=== PATIENT | female | born 1950 | race Caucasian/White ===

== ENCOUNTER 2017-02-21 05:35 | Inpatient (IN) | payer MEDICARE, OTHER ==
[~2017-02-21] VITALS: Ht 162.6 cm; Wt 63.5 kg
[~2017-02-21 05:35] MED LIST: BUSPIRONE HCL10 MG PO; CITALOPRAM HBR20 MG PO; CLONAZEPAM1 MG PO; FLUOXETINE HCL20 MG PO; GABAPENTIN600 MG PO; GEODON40 MG PO; HYDROCHLOROTH12.5 M1 PO; KEFLEX500 MG PO; LAMOTRIGINE200 MG PO; LATUDA20 MG PO; LOSARTAN POTAS100 MG PO; LOVASTATIN10 MG PO; METFORMIN HCL500 MG PO; NORCO 5-325 TA1 EACH PO; OMEPRAZOLE20 MG PO; TOPIRAMATE100 MG PO; VENTOLIN HFA18 GM INH
--- NOTE | 2017-02-21 07:37 | NUR ---
HAD BRIEF VISIT WITH THIS PT. SHE IS IN GOOD ATITUDE, I PRAYED WITH HER AND A BIT SURPRIZED AT HER EXCITEMENT TO RECIEVING PRAYER.
--- NOTE | 2017-02-21 09:45 | NUR ---
02/21/17 0945 Abida Bhardwaj PT SLEEPY, RESPONSES TO STIMULI.
--- NOTE | 2017-02-21 10:45 | NUR ---
BEDSIDE REPORT FROM EYE DROPPER ASSEMBLER. PT ALERT FORGETFUL, ATTEMPTEDTO CALL SON PER PT REQUEST, NO ANSWER PT LEFT MESSAGE
--- NOTE | 2017-02-21 12:10 | NUR ---
PT GIVEN TWO TABS NORCO FOR 7/10 PAIN. FIRST TAB PT REQUIRED EXTRA DRINK OF WATER TO CLEAR, CRUSHED SECOND TAB. PT IS ALERT AND ORIENTED. SHE IS FORGETFUL AND HAS INTERMITTEN ANXIETY, SETTLES WITH REASSURANCE THAT SHE IS DOING WELL POST OP.
--- NOTE | 2017-02-21 12:14 | NUR ---
NO SYMPTOMS OF HYPOCALCEMIA AT THIS TIME. PT REPORTS SHE FEELS HUNGERY BUT SHE DOES NOT WANT MORE THAN APPLESAUCE OR PUDDING AT THIS TIME. PT REPORTS NO NAUSEA AT THIS TIME.
--- NOTE | 2017-02-21 14:20 | NUR ---
PT REPORTS PAIN 8/10, IN HER NECK/SURGERY SITE. PT ADMINSITERED 3MG I.V. MORPHINE AT THIS TIME. WILL MONITOR CLOSELY, PT HAS NO SYMPTOMS OF LOW CALCIUM SURGICAL DRESSING IS CLEAN DRY AND INTACT. NO SIGNIFICANT SWELLING AT THIS TIME.
--- NOTE | 2017-02-21 14:20 | NUR ---
PT IS LYING IN BED, ASKED TO USE BEDSIDE COMMODE, THEN RETURNED TO BED. PT JUST RECIEVED PAIN MEDS. PT DID NOT NEED ANYTHING ELSE AT THE MOMENT
--- NOTE | 2017-02-21 14:51 | NUR ---
PT RESTING QUIELTY IN BED RR EVEN 16 BPM NO DISTRESS NOTED. PT APPEARS TO BE SLEEPING.
--- NOTE | 2017-02-21 17:32 | NUR ---
PT SITTING UP IN BED EATING DINNER. PT ADMINSTERED TWO TABS NORCO CRUSHED FOR PAIN 8/10 THROAT. NO SYMPTOMS OF HYPOCALCEMIA, NO SIGNIFICANT SWELLING AT THIS TIME. V/S STABLE LOSARTAN ADMINISTERED ORDERED
--- NOTE | 2017-02-21 18:00 | NUR ---
PT TO UNIT FROM SURGERY 1045. SHE HAD HIGH ANXIETY ON ARRIVAL SHE VERBALIZED CONCERN OF CANCER AND THAT SHE WAS GOING TO . PT WAS REASSURED THAT SURGERY WENT WELL AND THAT HER PROGRESS WAS ON TRACK. SHE HAS HAD NO SYMPTOMS OF HYPOCALCEMIA, NO SIGNIFICANT SWELLING AT SURGICAL SIGHT. SHE IS RESTING COMFORTABLE. REPORTS PAIN 7-8/10, HAS BEEN SLEEPING IN BETWEEN PAIN MEDICATION. HAS SPOKE WITH HER SON BOYD GILBERT TODAY. HAS HAD MILD DIZZINESS POST OP THAT IS IMPROVING SHE DOES HAVE A SCOPE PATCH BEHIND HER LEFT EAR. RN HAS BEEN CRUSHING PAIN MEDICATIONS, SHE HAS BEEN ABLE TO SWALLOW SMALL PILLS WITH APPLESAUCE WITHOUT ISSUE
--- NOTE | 2017-02-21 18:09 | NUR ---
PT IS IN BED WITH CALL LIGHT IN REACH. PT ASKED FOR BED TO BE RECLINED SO SHE CAN TRY AND SLEEP
--- NOTE | 2017-02-21 19:59 | NUR ---
PT ASSESSMENT COMPLETE. PT STATES PAIN IS "DOING GOOD" RIGHT NOW. PT DENIES ANY N/V. PT UP TO BEDSIDE COMMODE WITH x1 ASSIST. PT ON ROOM AIR, SATS 94%. DRESSING TO NECK IS C/D/I, NO SWELLING NOTED. NO S/SX HYPOCALCEMIA AT THIS TIME, WILL CONTINUE TO MONITOR. PT NOW RESTING IN BED EATING ICE CREAM. PT CALM AND RELAXED THIS EVENING, ALERT AND ORIENTED. CALL LIGHT WITHIN REACH. PT DENIES ANY FURTHER NEEDS AT THIS TIME.
--- NOTE | 2017-02-21 22:13 | NUR ---
PATIENT ASKED FOR ICE CREAM, GIVEN.
--- NOTE | 2017-02-21 23:15 | NUR ---
PT C/O PAIN 03/09, 4MG IV MORPHINE GIVEN. IV FLUIDS INFUSING WITHOUT DIFFICULTY. PT CONTINUES TO HAVE NO S/SX HYPOCALCEMIA, NEGATIVE CHVOSTEK SIGN. NO SWELLING NOTED TO NECK, DRESSING C/D/I. CALL LIGHT WITHIN REACH. PT DENIES ANY FURTHER NEEDS AT THIS TIME.
--- NOTE | 2017-02-21 23:55 | NUR ---
PT CONTINUES TO C/O NECK PAIN/SURGICAL PAIN 03/09, 6 MG IV MORPHINE GIVEN. SATS 94% ON ROOM AIR PER CONTINUOUS PULSE OXIMETER. CALL LIGHT WITHIN REACH. PT DENIES ANY FURTHER NEEDS AT THIS TIME.
--- NOTE | 2017-02-22 00:26 | NUR ---
PT CONTINUES TO C/O NECK/SURGICAL PAIN ALTHOUGH FALLING ASLEEP INTERMITTENTLY, IV 6MG MORPHINE GIVEN. CALL LIGHT WITHIN REACH. PT DENIES ANY FURTHER NEEDS AT THIS TIME.
--- NOTE | 2017-02-22 00:50 | NUR ---
PT RATES PAIN 04/09, NORCO GIVEN. PT FALLING ASLEEP INTERMITTENTLY, SATS DECREASE INTO MID-LOW 80'S ON ROOM AIR WHEN SLEEPING, PLACED PT ON 2 LPM O2 VIA NASAL CANNULA, SATS NOW 95%. BED RAILS UP FOR SAFETY, CURTAINS OPEN FOR CLOSE MONITORING. CALL LIGHT WITHIN REACH. PT DENIES ANY FURTHER NEEDS AT THIS TIME.
--- NOTE | 2017-02-22 01:30 | NUR ---
PT TRYING TO GET OUT OF BED, CONFUSED, TALKING OUT LOUD IMITATING TALKING ON THE PHONE TO A MALE. PT EASILY REORIENTED TO BEING IN THE HOSPITAL, MIDDLE OF THE NIGHT AND NO ONE IN THE ROOM OR ON THE PHONE. PT NOW RESTING WITH EYES CLOSED. SATS MID 90'S ON 2 LPM.
--- NOTE | 2017-02-22 03:00 | NUR ---
PT ATTEMPTING TO GET OUT OF BED, STATING SHE WOULD LIKE TO GET UP TO USE THE BATHROOM, BRUSH HER TEETH AND GET DRESSED. WHEN ASKED IF SHE KNEW WHERE SHE WAS, SHE RESPONDED CORRECTLY WITH "IM AT THE HOSPITAL". WHEN I TOLD HER THE TIME, SHE STATED "OH OK" THEN SHE LAID BACK DOWN IN BED AND COVERED HERSELF UP WITH HER BLANKET, CLOSED HER EYES. BED RAILS UP AND BED ALARM IN PLACE FOR SAFETY.
--- NOTE | 2017-02-22 04:01 | NUR ---
PT SLEEPING, RR EVEN AND UNLABORED. SATS HIGH 80'S ON 2 LPM DURING SLEEP, INCREASED O2 TO 3 LPM VIA NASAL CANNULA, SATS NOW MID 90'S.
--- NOTE | 2017-02-22 04:42 | NUR ---
PT PULSE OXIMETER BEEPING, WENT INTO PT ROOM, SATS MID 70'S, PT VISIBLY BREATHING, INCREASED O2 TO 4 LPM, ATTEMPTED TO WAKE PT BY TAPPING ARM AND SAYING PT NAME, PT NOT RESPONDING, ATTEMPTED STERNAL RUB. PT SATS CONTINUING TO DROP, PT CONTINUING TO NOT RESPOND TO STERNAL RUB, PT HAS GOOD PULSE. RAPID RESPONSE CALLED, SCRAP PREPARATION SUPERVISOR/THERAPEUTIC RADIOLOGIST/MOBILE SOLUTIONS ARCHITECT IN TO ASSIST MORE HOSPITAL STAFF CAME TO PT ROOM. PT STOPPED BREATHING, STILL HAS PULSE. CODE BUTTON PULLED. ER MD IN ROOM. NARCAN GIVEN x2. ATTEMPTED AIRWAY, PT TEETH CLENCHED, RT IN ROOM TO GET AIRWAY. PT RESPONSIVE AFTER SECOND DOSE OF NARCAN. PT TRANSFERRED TO CCU WITH ANTICIPATION OF INTUBATION. PT AWAKE AND YELLING AT STAFF IN CCU,INTUBATION NOT NEEDED. PT BLOOD GLUCOSE 163. DR VILLATORO IN ROOM. REPORT GIVEN TO DR VILLATORO.
--- NOTE | 2017-02-22 04:50 | NUR ---
RESPONDED TO A RAPID RESPONSE CALLED ON PT IN ROOM 111. ON MY ARRIVAL PT WAS NOT BREATHING. NURSING PORTER HEAD IN ROOM ATTEMPTING TO BAG PT. RT IN ROOM TO PUT IN OPA SO THAT PORTER HEAD WAS ABLE TO BAG PT. LU DE ANDA CALLED AT THIS TIME DUE TO PT IN FULL RESPIRATORY ARREST. DEFIB PADS PLACED ON PT BY THIS RN.
--- NOTE | 2017-02-22 05:00 | NUR ---
pt transfered to the CCU from med-surg. pt not talking at this time, pt breathing on her own, supported with supplimental O2.
--- NOTE | 2017-02-22 05:15 | NUR ---
PT BECOMING IRRATIBLE WITH HEALTHCARE STAFF, STATES "JUST LEAVE ME ALONE, QUIT BUGGING ME". PT HAS RIGGORS AND STATES "I'M SO COLD". WARM BLANKETS GIVEN.
--- NOTE | 2017-02-22 05:40 | NUR ---
PLEASE SEE RT ASSESEMENT AT 2746 FOR RAPID RESPONSE CHARTING
--- NOTE | 2017-02-22 05:41 | NUR ---
pt able to answer questions with clarity, appears to drift back to dilusional thinking and talking to herself quickly. pt holding O2 sats at 100% on 4.5 L via oxymask. all pt vitals stable at this time.
--- NOTE | 2017-02-22 05:57 | NUR ---
IV SITE INTACT, NO REDNESS OR SWELLING NOTED, PT DENIES PAIN AT SITE, FLUIDS INFUSING EASILY.
--- NOTE | 2017-02-22 07:35 | NUR ---
I WAS CALLED IN AT 0450 FOR LU DE ANDA WITH THIS PT. WHEN I ARRIVED SHE HAD RESPONDED TO MEDICATIONS AND HAD BEEN MOVED TO CCU,WAS RESTING SO I DID NOT DISTURB HER.
--- NOTE | 2017-02-22 08:06 | NUR ---
This RN finds patient sleepy in bed, pleasantly confused. Patient has been incontinant of urine. This RN arouses patient, assists patient to sit up at bedside. Curtains opened. Patient oriented to date, time, events of last night. This RN removes defib pads from patients chest and back. Patient up to bathroom, one person standby assist. Patient unsteady on feet. Requires reminders to keep eyes open. Patient voids to toilet, attends changed per RN and rusty care done. O2 to 2l nc. Patient up to chair for breakfast. Patient confused, occasionally talking to people not in room. Incision to neck WNL, CDI. Patient eating breakfast with no problems.
--- NOTE | 2017-02-22 08:27 | NUR ---
Patient states, "I keep seeing people in my room. How many of you are there." This RN talks with patient, assures her there are no other people in her room.
--- NOTE | 2017-02-22 08:34 | NUR ---
Placed a call to patient's son as patient is requesting to see him. No answer on cell phone.
--- NOTE | 2017-02-22 09:55 | NUR ---
Patient given regular home meds. Scopalamine patch removed. aware.
--- NOTE | 2017-02-22 09:58 | NUR ---
Patient remains confused. Dr Ratliff called with updates. Clarified plan of care with Dr Ratliff. MD orders patient to recieve Geodon, Gabapentin and Buspirone in spite of confusion and mental status changes.
--- NOTE | 2017-02-22 10:35 | NUR ---
PATIENT UP TO BATHROOM, UNABLE TO VOID. PATIENT NEARLY FALLS ASLEEP SITTING ON TOILET. PATIENT BACK TO CHAIR. CALL LIGHT IN REACH.
--- NOTE | 2017-02-22 12:36 | NUR ---
This RN finds patient standing in front of her chair attempting to walk to bathroom with scds on. This RN re-orients patient, assists her to the bathroom. Patient has been incontinant, also voids 400 mls to bsc. Patient slightly more oriented this afternoon. Placed patient into bed with side rails up and bed alarm on. Patient denies pain.
--- NOTE | 2017-02-22 13:33 | NUR ---
MED REC COMPLETE--PER PATIENT
--- NOTE | 2017-02-22 16:05 | NUR ---
This RN awakens patient, assists her to the bathroom and then up to chair. Patient is more alert, however remains unsteady on her feet. O2 titrated to off. Room air sats 93-95% will continue to monitor.
--- NOTE | 2017-02-22 16:06 | NUR ---
Lab in to draw calcium level.
--- NOTE | 2017-02-22 16:07 | NUR ---
Room air O2 sats 93%
--- NOTE | 2017-02-22 16:34 | NUR ---
Patient's son "Bolivar" calls back and talks with this RN. Updated patient's son about the events of last night and patient's confusion today. Bolivar is to call local family as he lives in [place].
--- NOTE | 2017-02-22 17:36 | NUR ---
Dr Ratliff called, updated on labs and mental status of patient. Gaudencio to keep patient in CCU overnight with close observation for patient safety. also notified that patient's blood pressure has been low this evening. No new orders.
--- NOTE | 2017-02-22 18:21 | NUR ---
Patient has slowly become more oriented throughout the day, however patient still unsteady on her feet at times and pleasantly confused. Patient will stay overnight and be discharged in the am for more observation. Patient has incision to her neck that is cdi. MD is aware of improving mental status.
--- NOTE | 2017-02-22 20:05 | NUR ---
PT AMBULATED FROM CHIAR TO BED WITH STANDBY ASSIST. PT DENIES PAIN, NAUSEA, AND SOB AT THIS TIME. PT VITALS WNL. IV SITE INTACT, NO REDNESS OR SWELLING NOTED, FLUIDS INFUSING EASILY. DRESSING OVER INCISION ON THROAT C/D/I. PT ALERT X3, STATES "I FEEL REALLY ANXIOUS ABOUT WHAT HAPPENED LAST NIGHT". PT ABLE TO HOLD MEANINGFUL CONVERSATION. PT C/O SOME VISUAL DISTURBANCE, STATES "I FEEL LIKE MY EYES WON'T FOCUS SOMETIMES", JOSE ROBERTO
--- NOTE | 2017-02-22 20:17 | NUR ---
PT PLACED ON 2L O2 FOR DESAT TO 88% WHILE ON ROOM AIR.
--- NOTE | 2017-02-23 | NUR ---
IV SITE INTACT, NO REDNESS OR SWELLING NOTED, FLUIDS INFUSING EASILY. VITALS WNL. DRESSING TO INCISION C/D/I.
--- NOTE | 2017-02-23 00:43 | NUR ---
PT C/O THROAT PAIN, DESCRIBES PAIN A SORE THROAT THAT HURTS WHEN SHE SWALLOWS. EXPLAINED THAT TYLENOL MAY NOT HAVE BEEN IN HER SYSTEM LONG ENOUGH TO PROVIDE THE FULL BENEFIT OF PAIN RELIEF.
--- NOTE | 2017-02-23 00:50 | NUR ---
CALLED TO UPDATE HIM ON PT THROAT DISCOMFORT/PAIN. CHLORASEPTIC SPRAY ORDERED.
--- NOTE | 2017-02-23 02:00 | NUR ---
PT AWAKE, TAKING OFF HER SCD'S, STATES "I NEED TO WALK, I CAN'T SLEEP, I NEED TO GET OUT OF THIS BED". ASSISTED PT UP OUT OF BED, AMBULATED IN LANCE WITH PT. PT REQUESTED TO SIT OUT AT THE NURSES STATION, SHE WAS GIVEN A CHAIR. PT ALSO GIVEN A DIET SODA. PT PLESANT AND TALKATIVE. ALERT AND ORIENTED X3.
--- NOTE | 2017-02-23 02:50 | NUR ---
PT AMBULATED FROM NURSES STATION TO BATHROOM INDEPENDENTLY, ABLE TO VOID THEN BACK TO BED. PT REPORTS CHLORASEPTIC SPRAY HELPS SLIGHTLY WITH THROAT DISCOMFORT. CALL LIGHT WITHIN REACH.
--- NOTE | 2017-02-23 04:00 | NUR ---
PT SLEEPING SOUNDLY AT THIS TIME, VITALS WNL, WILL DEFER ASSESSMENT UNTIL 0600
--- NOTE | 2017-02-23 05:20 | NUR ---
PT WOKE UP, STARTED TO CLIMB OUT OF BED, PULLING LEADS OFF, DISORIENTED TO PLACE AND FOLLOWING DIRECTIONS. ASSISTED PT TO TOILET, PT ABLE TO VOID, THEN ASSISTED BACK TO BED, PT REQUIRES REDIRECTION AND REORIENTATION. PT POLITE. DRESSING REMOVED FROM PT INCISION ON THROAT, STERI STRIPS INTACT, NO DRAINAGE NOTED, PT REPORTS THIS IS MORE COMFORTABLE.
--- NOTE | 2017-02-23 05:34 | NUR ---
IV SITE INTACT, NO REDNESS OR SWELLING NOTED, FLUIDS INFUSING EASILY.
--- NOTE | 2017-02-23 05:35 | NUR ---
BED ALARM NOW ON.
[2017-02-23] MEDS ORDERED: LOVASTATIN10 MG PO (07:09)
[2017-02-23] MEDS ORDERED: TOPIRAMATE100 MG PO (07:10)
[2017-02-23] MEDS ORDERED: LEVOTHYROXINE150 MCG PO (07:11)
[2017-02-23] MEDS ORDERED: CALCIUM CARBON200 MG PO (07:11)
[2017-02-23] MEDS ORDERED: NORCO 5-325 TA1 EACH PO (07:13)
--- NOTE | 2017-02-23 07:31 | NUR ---
DR VILLATORO HERE THIS AM DISCHARGE ORDERS WRITTEN. PT IS INPULSIVE THIS AM, JUMP OUT OF BED WITHOUT USING CALL LIGHT. VOIDED AND BACK TO BED.
--- NOTE | 2017-02-23 07:56 | NUR ---
MORNING ASSESSMENT COMPLETED AND PT DOES NOT WANT TO EAT BKF AT THIS TIME, WANTS TO SLEEP IN THIS MORNING. PT TOLD MOTHER TESTER THAT SHE WILL TAKE THE TAXIE HOME AND HER PARENTS WILL BE WITH HER THIS AM.
--- NOTE | 2017-02-23 09:27 | NUR ---
PHARMANCY INTO TALK WITH PT AT THIS TIME ABOUT HER MEDICATIONS.
--- NOTE | 2017-02-23 10:07 | NUR ---
PT GIVEN DISCHARGE INSTRUCTION ALL QUESTIONS ANSWERED. PT WAS GIVEN HANDOUT'S APPOINTMENT AND LAB ORDERS SENT TO [facility] TO BE DRAWN ON February. ALL OF THIS INFORMATION WRITTEN ON PT'S DISCHARGE INSTRUCTIONS AND SHE VERBALLY REPEATED INSTRUCTIONS.
--- NOTE | 2017-03-04 10:25 | OR ---
[facility] [address], [place] [address] Signed DATE OF SERVICE: 02/21/2017 PREOPERATIVE DIAGNOSES: Bilateral enlarging thyroid nodules with calcification. Multiple medical problems. POSTOPERATIVE DIAGNOSES: Bilateral enlarging thyroid nodules with calcification. Multiple medical problems. PROCEDURE: Total thyroidectomy. Autotransplant of left lower pole parathyroid gland to the left sternocleidomastoid muscle. ANESTHESIA: General endotracheal (Estelle Kat CRNA). INDICATION: This 66-year-old white woman is a patient of Dr. Cisco Fields and referred by Dr. Eloy Almanzar for consideration of possible thyroidectomy. She has undergone thyroid ultrasound in the past under the direction of Dr. Belcher showing thyroid nodules on both r ight and left lobes. A fine-needle aspiration biopsy was felt to be benign at that time. A surveillance ultrasound was recently performed which showed multiple nodules, 2 of them calcified, 1 in each lobe. The largest is approximately 1.7 cm in size, anot her 1.5 cm. The patient has had some hoarseness she perceives as well as some cervical dysphagia, though more likely this is related to reflux-related symptoms. She has other medical problems as well. The patient is very interested in total thyroidectomy as she is very worried about the nodules. I reassured her that the possibility of malignancy is relatively low in aggregate, though not impossible. She understands the risks of thyroidectomy as an approach to treatment. She does not wish to pursue fine-n eedle aspiration biopsy again. The risks of bleeding, infection, parathyroid gland injury both temporary and permanent as well as recurrent laryngeal nerve or external laryngeal nerve injury were all reviewed and well understood by her. She understands th at she will need thyroid replacement therapy going forward. She also understands that if malignancy should be identified in the final pathologic specimen that additional therapy may be needed. Understanding this, she wished to proceed. Of note, a CT scan of the head and neck was performed preoperatively showing no sign of Electronically Signed By: ALTAGRACIA VILLATORO MD 03/04/17 1025 PATIENT NAME: DEMETRIO GILBERT OPERATIVE REPORT DATE OF : 48 PHYSICIAN: ALTAGRACIA VILLATORO MD REPORT #: [id number] REPORT IS CONFIDENTIAL AND NOT TO BE RELEASED WITHOUT AUTHORIZATION [facility] [address] [place] [id number] Signed pathologic adenopathy and the findings of the thyroid somewhat underrepresented on the CT scan compared to the ultrasound. FINDINGS: The thyroid was of average to a smaller size. There wer e 2 dense nodules, one in the right lobe and another in the left and several small cystic lesions of the right lobe. There was a small pyramidal lobe as well. The specimen was resected entirely in continuity. The right and left recurrent laryngeal nerves w ere identified. The left lower pole parathyroid gland was slightly enlarged and draped across the anterior aspect of the left lobe. This was dissected free from the thyroid and the proximal portion with presumed blood supply was left in situ. The other po r tion reimplanted to the left sternocleidomastoid muscle with the unlikely possibility of other parathyroid gland excision. Parathyroid glands were identified on the right side which were small and within the normal anatomic areas in the tracheoesophageal groove. Consideration was made for frozen pathology, however, there was no regional adenopathy noted and the frozen pathology report is typically indeterminate to direct further therapy in our setting. There was excellent hemostasis. DESCRIPTION OF PROCEDURE: The patient was brought to the operating room, given a general endotracheal anesthetic. A Brady catheter was not placed, although it is sometimes my habit to do so. Mild neck extension was undertaken. A shoulder roll was used. Arms were at the side. A position was maintained. The neck was prepared with a chlorhexidine solution and draped sterilely. A natural skin crease was nat ntified. Incision made between the sternocleidomastoid muscle heads. Dissection was carried through the dermis with electrocautery, as was the platysma muscle and divided similarly. Superior and inferior flaps were developed with blunt and electrocautery d issection. Gelpi retractors were placed. The midline strap muscles were elevated and the avascular plane between them incised and freed entirely. The sternohyoid and sternothyroid muscles were dissected free using sharp dissection on the right side exposi n g underlying right thyroid lobe. Palpation revealed a dense nodule within the midportion of it. There were other small nodules noted as well. The thyroid is not enlarged by any means. There was no sign of regional adenopathy. With medial retraction, later a l dissection was undertaken. Division of loose areolar tissue undertaken with sharp dissection. Dissection in the superior pole allowed for individual dissection and ligation of superior polar vessels. A few clips were applied as well. Attention was turne d to the inferior pole, where using similar dissection the inferior polar vessels were isolated and ligated with 4-0 silk ties. Laterally, similar dissection was undertaken allowing for the thyroid to be rolled to the midline quite easily. Posterior elemen t s were easily identified including the right recurrent laryngeal nerve. Using the extracapsular technique of Lane, the ligament of Hardwick was revealed and dissection undertaken more medially Electronically Signed By: ALTAGRACIA VILLATORO MD 03/04/17 1025 PATIENT NAME: DEMETRIO GILBERT OPERATIVE REPORT DATE OF : 48 PHYSICIAN: ALTAGRACIA VILLATORO MD REPORT #: [id number] REPORT IS CONFIDENTIAL AND NOT TO BE RELEASED WITHOUT AUTHORIZATION [facility] [address] [place], [place] [address] Signed rolling the thyroid to the midline to the avascular plane in the pretracheal space. This allowed for complete isolation of the isthmus. The inferior and superior parathyroid glands were identified and relatively small in size and left in situ. The area was essentially nonbleeding and small gauze was packed into the area. Attention turned toward the left side. With similar technique, the thyroid lobe on the left was revealed. It was far smaller than on the right side. It too had a dense nodule within the midportion. An inferior parathyroid gland on the left side was draped over the inferior pole and this was dissected free showing its impressively small vascular pedicle to the gland. Once completely freed, it was uncertain if this parathyroid gland would be viable. On that basis, half of it was transected and set asi de for autotransplantation into the left sternocleidomastoid muscle later. With similar technique as to the right side, the superior, inferior, and lateral vessels were secured with 4-0 silk ties and a few clips as necessary. The left recurrent laryngeal nerve was easily identified and preserved as well. The thyroid was rolled to the midline and ultimately excised completely from the area of the ligament of Hardwick allowing for the specimen to be inclusive of both right, left, and isthmus portions of the th y roid. A small pyramidal lobe was excised in continuity as well. Irrigation was undertaken. There was no untoward bleeding. Small amount of Alvaro was applied to the posterior aspect. A small linear incision was made in the left sternocleidomastoid muscle and the parathyroid remnant diced and implanted into that area. It was secured with a 3-0 silk suture and 3 small clips stacked in a row over it to estelle the site for future reference if necessary. Attention was turned toward closure. The midline strap mus cles were reapproximated with interrupted 2-0 Vicryl suture. The platysmal layer was similarly reapproximated and skin closed with a running subcuticular 3-0 Vicryl. Steri-Strips were applied as well as a Mepilex silver sponge dressing and an OpSite. BLOOD LOSS: Minimal. COMPLICATIONS: None. MD JILLIAN Gilbert/Dustin /[id number] Electronically Signed By: ALTAGRACIA VILLATORO MD 03/04/17 1025 PATIENT NAME: DEMETRIO GILBERT OPERATIVE REPORT DATE OF : 48 PHYSICIAN: ALTAGRACIA VILLATORO MD REPORT #: [id number] REPORT IS CONFIDENTIAL AND NOT TO BE RELEASED WITHOUT AUTHORIZATION [address] [id number] Signed cc: MD Cisco Bhardwaj M Electronically Signed By: ALTAGRACIA VILLATORO MD 03/04/17 1025 PATIENT NAME: DEMETRIO GILBERT OPERATIVE REPORT DATE OF : 48 PHYSICIAN: ALTAGRACIA VILLATORO MD REPORT #: [id number] REPORT IS CONFIDENTIAL AND NOT TO BE RELEASED WITHOUT AUTHORIZATION
--- NOTE | 2017-03-04 10:25 | DS ---
[facility] [address], [place] [address] Signed ADMIT DATE: 02/22/2017 DISCHARGE DATE: 02/23/2017 REASON FOR ADMISSION: Multiple bilateral thyroid nodules, for total thyroidectomy. HISTORY: A 66-year-old white woman, a patient of Dr. Cisco Noonan and referred by Dr. Feliciano Almanzar for consideration of possible thyroidectomy. She has undergone thyroid ultrasound in the past under the direction of Dr. Belcher showing thyroid nodules in both lobes. A surveillance ultrasound recently performed showed multiple nodules, 2 of them calcified, 1 in each lobe. The largest was 1.7 cm in size and the other 1.5 cm. The patient has had some hoarseness that she perceives as well as some cervical dysphagia, though most likely this is related to reflux symptoms. The patient is very interested in total thyroidectomy as she is impressively worried about the nodules as possible ability of malignancy. She understands the risks of bleeding, infection, nerve injury, and other unforeseen complications related to thyroidectomy. Additionally, she understands that she will need to be on thyroid replacement permanently. PERTINENT PHYSICAL EXAMINATION: GENERAL: A pleasant white woman, who is alert and oriented. PSYCHIATRIC: She does have a psychiatric history of bipolar disease but appears to be well compensated at this time. NECK: Trachea is midline. The thyroid is not bulky. There is no dominant nodule palpable. There is no cervical adenopathy. CHEST: Clear. HEART: Regular without murmur. ABDOMEN: Soft and flat without tenderness or mass. EXTREMITIES: Show no clubbing, cyanosis, or edema. HOSPITAL COURSE: On February 21, 2017, she underwent total thyroidectomy. Autotransplantation of the left lower pole parathyroid gland portion to the left sternocleidomastoid muscle was undertaken as well. There was no excision of parathyroid glands, otherwise, that could be known. She tolerated the procedure well without complication. The night of operation, she had some disorientation and complaints of neck pain. She was treated with morphine several doses and then was found to have a significant respiratory depression requiring Narcan administration and transferred to the intensive care unit. It became clear that she likely had secondary effect from a scopolamine patch that had been placed Electronically Signed By: ALTAGRACIA VILLATORO MD 03/04/17 1025 PATIENT NAME: DEMETRIO GILBERT DISCHARGE SUMMARY DATE OF : 48 PHYSICIAN: ALTAGRACIA VILLATORO MD REPORT #: [id number] REPORT IS CONFIDENTIAL AND NOT TO BE RELEASED WITHOUT AUTHORIZATION [facility] [address], [place] [address] Signed perioperatively. She had recovery from her problem promptly, and by the time of discharge, w a s ambulating well, tolerating a regular diet. She has no signs or symptoms of hypocalcemia and no disorientation. Of note, her immediate post procedure (day after surgery) calcium level was 8.0 and 7.9 by the day of discharge. She was administered Tums tablets, though she is symptom-free on a routine basis. Additionally, Synthroid was initiated at 0.15 mg daily. She is to see me back in approximately 2- 3 weeks at which point, a T4, T3, and TSH as well as a calcium level will be obtained. She is especially instructed to keep Steri-Strips on the wound. If she has numbness or tingling in her lips or fingers, she is to take a Tums tablet and to advise me. DISCHARGE MEDICATIONS: Include: Tums tablet 500 mg p.o. q.8 hours. Synthroid 0.15 mg p.o. daily. Grafton 5/325 one p.o. q.6 hours p.r.n. pain, #10, no refill. Gabapentin 1800 mg p.o. q.h.s. Lamotrigine 200 mg p.o. q.h.s. Hydrochlorothiazide 12.5 mg p.o. daily. Prilosec 20 mg p.o. daily. Albuterol sulfate inhaler as needed for shortness of breath. Geodon 40 mg p.o. b.i.d. Clonazepam 1 mg tablet, 1.5 mg p.o. q.h.s. Citalopram 20 mg p.o. daily. Buspirone 10 mg p.o. b.i.d. She will resume her topiramate 100 mg tablet daily and lovastatin 10 mg + daily as well. DISCHARGE DIAGNOSES: Bilateral thyroid nodules, final pathology pending, status post total thyroidectomy with autotransplantation of left lower pole portion of parathyroid gland to her left sternocleidomastoid muscle. Underlying bipolar disease with multiple medications for control. Postoperative respiratory depression related to morphine-related respiratory depression. Postoperative delirium, likely related to scopolamine patch. Full code. Altagracia Villatoro MD Electronically Signed By: ALTAGRACIA VILLATORO MD 03/04/17 1025 PATIENT NAME: DEMETRIO GILBERT DISCHARGE SUMMARY DATE OF : 48 PHYSICIAN: ALTAGRACIA VILLATORO MD REPORT #: [id number] REPORT IS CONFIDENTIAL AND NOT TO BE RELEASED WITHOUT AUTHORIZATION [facility] [address] [place], [place] [address] Signed JILLIAN/Dustin /[id number] cc: Dr. Feliciano Fields Electronically Signed By: ALTAGRACIA VILLATORO MD 03/04/17 1025 PATIENT NAME: DEMETRIO GILBERT DISCHARGE SUMMARY DATE OF : 48 PHYSICIAN: ALTAGRACIA VILLATORO MD REPORT #: [id number] REPORT IS CONFIDENTIAL AND NOT TO BE RELEASED WITHOUT AUTHORIZATION
== END 2017-02-23 10:00 | disposition home or self-care (01) | DRG 72 ==
LOC: DS 05:35 → CCU 05:36 → DS 06:45 → CCU 10:35 → MS 10:35 → DS 10:35 → CCU 02-22 05:00 → DS 02-22 05:00 → MS 02-22 05:00 → CCU 02-22 05:00
PROVIDERS: ADMIT Surgery
DX: G93.89 Other specified disorders of brain (principal); K21.9 Gastro-esophageal reflux disease without esophagitis; I10 Essential (primary) hypertension; J45.909 Unspecified asthma, uncomplicated; E89.0 Postprocedural hypothyroidism; T44.3X5A Adverse effect of other parasympatholytics [anticholinergics and antimuscarinics] and spasmolytics, initial encounter; T40.2X5A Adverse effect of other opioids, initial encounter; R41.0 Disorientation, unspecified; G47.30 Sleep apnea, unspecified; F31.9 Bipolar disorder, unspecified; Z79.84 Long term (current) use of oral hypoglycemic drugs; Y92.239 Unspecified place in hospital as the place of occurrence of the external cause; Z88.8 Allergy status to other drugs, medicaments and biological substances; Z86.19 Personal history of other infectious and parasitic diseases; Z79.899 Other long term (current) drug therapy; Z98.890 Other specified postprocedural states
CPT/HCPCS: 00320; 31720; 36415; 80053; 82247; 82310; 82465; 83615; 84100; 84478; 84550; 94640; 94760; 94762; J0690; J1100; J2270; J2310; J2405; J2704; J2765; J3010; J7120

== ENCOUNTER 2018-04-14 16:09 | Emergency (ER) | payer MEDICARE, OTHER ==
[~2018-04-14] VITALS: Ht 162.6 cm; Wt 55.0 kg
--- OUTSIDE RECORDS SUMMARY | ~2018-04-14 | XMS | Clinical Summary ---
Demographics + + + | Address | [address] | | | [place] [address] | + + + | Home Phone | | + + + | Preferred Language | Unknown | + + + | Marital Status | Single | + + + | Denominational Affiliation | CAT | + + + [...] Team Providers + +------+ + | Care Utilization Reviewer Name | Role | Phone | + +------+ + PP | Unavailable | + +------+ + Source Comments TRAN is fully live on both [facility] and [facility]Patient.[facility] Allergies Not on File Current Medications [...] | re | [phone] | [place] [address] | | | B | | | | | + +--------+ +--------+ + + | MODA MEDICARE | MODA | xxxxxxxxx | POS | +- | [address] [address] | | SUPPLEMENT | MEDICA | | | [address] | [place] [address] | | | RE | | | [...] | 1950 | +1-000-000- | [place] [address] | | | ko | | | 0000 | | + +--------+ +--------+ + +"
--- OUTSIDE RECORDS SUMMARY | ~2018-04-14 | XMS | Clinical Summary ---
Demographics + + + | Address | [address] | | | [place] [address] | + + + | Home Phone | | + + + | Preferred Language | Unknown | + + + | Marital Status | | + + + | Jain Affiliation | 1027 | + + + | Race | Unknown | + + + | Ethnic Group | Unknown | + + + Author + + + | Author | [facility] | | | and [place] | + + + | Organization | [facility] | | | and Neo[facility] | + + + | Address | Unknown | + + + | Phone | Unavailable | + + + Support + + + + + | Name | Relationship | Address | Phone | + + + + + | Bolivar Lim | ECON | [address] | | | | | [address] [place], | | | | | [place] [address] | | + + + + + | Ana Oneal | ECON | [address] | | | | | [place] | | | | | [address] | | + + + + + Care Team Providers + +------+ + | Care Smoke Chaser Name | Role | Phone | + +------+ + | Cisco Fields MD | PP | | + +------+ + Allergies + + + +--------+ + | Active Allergy | Reactions | Severity | Noted | Comments | | | | | Date | | + + + +--------+ + | Bupropion Hcl | | | | | + + + +--------+ + | Meperidine Hcl | | | | | + + + +--------+ + Current Medications + + + +---------+------+------+-------+ | Prescription | Sig. | Disp. | Refills | Star | End | Statu | | | | | | t | Date | s | | | | | | Date | | | + + + +---------+------+------+-------+ | | Take 40-25 mg by | | | 03/31 | | Activ | | olmesartan-hydrochlo | mouth Daily. | | | 10/17 | | e | | rothiazide (BENICAR | | | | 12 | | | | HCT) 40-25 MG per | | | | | | | | tablet | | | | | | | + + + +---------+------+------+-------+ | loratadine | Take 10 mg by mouth | | | 09/1 | | Activ | | (CLARITIN) 10 mg | Daily. | | | 3/20 | | e | | tablet | | | | 12 | | | + + + +---------+------+------+-------+ | lamoTRIgine | Take 100 mg by mouth | | | 09/1 | | Activ | | (LAMICTAL) 100 mg | Daily. | | | 3/20 | | e | | tablet | | | | 12 | | | + + + +---------+------+------+-------+ | L-Methylfolate | 1 tablet by mouth | | | 09/1 | | Activ | | (DEPLIN PO) | twice daily | | | 3/20 | | e | | | | | | 12 | | | + + + +---------+------+------+-------+ | lovastatin | Take 10 mg by mouth | | | 03/31 | | Activ | | (MEVACOR) 10 MG | Daily. | | | 10/17 | | e | | tablet | | | | 12 | | | + + + +---------+------+------+-------+ | omeprazole | Take 20 mg by mouth | | | 03/31 | | Activ | | (PRILOSEC) 20 mg | 2 times daily. | | | 10/17 | | e | | capsule | | | | 12 | | | + + + +---------+------+------+-------+ | | AEPB 2 puffs as | | | 03/31 | | Activ | | Fluticasone-Salmeter | needed | | | 10/17 | | e | | ol (ADVAIR DISKUS | | | | 12 | | | | IN) | | | | | | | + + + +---------+------+------+-------+ | gabapentin | one by mouth am, 1 | | | 09/2 | | Activ | | (NEURONTIN) 400 mg | in the afternoon and | | | 03/19 | | e | | capsule | 4 in the evening | | | 12 | | | + + + +---------+------+------+-------+ | FLUoxetine | one by mouth daily | | | 09/2 | | Activ | | (PROZAC) 10 mg | | | | 8/20 | | e | | capsule | | | | 12 | | | + + + +---------+------+------+-------+ | traZODone | 1/2 by mouth at | | | 09/2 | | Activ | | (DESYREL) 100 mg | night | | | 8/20 | | e | | tablet | | | | 12 | | | + + + +---------+------+------+-------+ | | To be taken the day | | | 09/0 | | Activ | | asrrzvhjt-LHV-YDv-so | prior to procedure | | | 4/20 | | e | | dium | drink 8 ounces every | | | 12 | | | | bicarbonate-NaCl | 10-20 minutes until | | | | | | | (HALFLYTELY WITH | gone | | | | | | | FLAVOR PACKS) 5-210 | | | | | | | | MG-GM KIT | | | | | | | + + + +---------+------+------+-------+ | adalimumab | Inject sq every 2 | 2 each | 5 | 05/0 | | Activ | | (HUMIRA) 40 mg/0.8 | weeks | | | 2/20 | | e | | mL injection | | | | 13 | | | + + + +---------+------+------+-------+ Active Problems + + + | Problem | Noted Date | + + + | OBSTRUCTIVE SLEEP APNEA | 09/28/2011 | + + + | RESTLESS LEG SYNDROME | 09/28/2011 | + + + | BIPOLAR DISORDER UNSPECIFIED | 09/28/2011 | + + + + + | Overview: ICD-10 Record update | + + + + + | ORGANIC INSOMNIA UNSPECIFIED | 09/28/2011 | + + + + + | Overview: ICD-10 Record update | + + + +---+ | INFLAMMATORY BOWEL DISEASE | | + +---+ | HEPATITIS C | | + +---+ + + | Overview: ICD-10 Record update | + + + +---+ | HIATAL HERNIA | | + +---+ | INTERNAL HEMORRHOIDS | | + +---+ Social History + +-------+ +--------+------+ | Tobacco [...] on file | | + + + Last Filed Vital Signs + + + + | Vital Sign | Reading | Time Taken | + + + + | Blood Pressure | 108/70 | 03/21/2012 0000 PDT | + + + + | Pulse | - | - | + + + + | Temperature | - | - | + + + + | Respiratory Rate | - | - | + + + + | Oxygen Saturation | - | - | + + + + | Inhaled Oxygen | - | - | | Concentration | | | + + + + | Weight | 60.8 kg (134 lb) | 03/21/2012 0000 PDT | + + + + | Height | 165.1 cm (5' 5") | 05/15/2009 0000 PDT | + + + + | Body Mass Index | 22.3 | 03/21/2012 0000 PDT | + + + + Plan of Treatment + + + + + | Health Maintenance | Due Date | Last Done | Comments | + + + + + | Vaccine: | | | | | Dtap/Tdap/Td (1 - | 8 | | | | Tdap) | | | | + + + + + | BREAST CANCER | | | | | SCREENING (MAMM Q2 | 9 | | | | YEARS 50-74) | | | | + + + + + | Vaccine: Zoster (1 | | | | | of 2) | 9 | | | + + + + + | Colorectal Cancer | | 04/27/2012, 04/27/2012 | | | Screening (FIT) | 3 | | | + + + + + | Vaccine: | | | | | Pneumococcal 65+ | 4 | | | | Low/Medium Risk (1 | | | | | of 2 - PCV13) | | | | + + + + + | Vaccine: Influenza | | | | | (#1) | 8 | | | + + + + + | Hepatitis C | Completed | 05/02/2015 | | | Screening | | | | + + + [...] + + | MEDICARE | MEDICA | [id number] | Medica | [phone] | | | RE | | re | [phone] | | | | PART A | | | | | | | AND B | | | | | + +--------+ +--------+ + + | MODA | MODA | [id number] | Indemn | [phone] | [address] [address] | | | HEALTH | | ity | [phone] | [place] [address] | | | MDCR | | | | | | | SUPPL | | | | | + +--------+ +--------+ + + + +--------+ +--------+ + + | Guarantor Name | Accoun | Relation to | Date | Phone | Billing Address | | | t Type | Patient | of | | | | | | | | | | + +--------+ +--------+ + + | DEMETRIO LIM | Person | Self | [birth year] | Work: | [address] | | | al/Kadeem | | [address] | +- | [place] [address] | | | [place] | | | [phone] Home: | | | | | | | | | | | | | | +- | | | | | | | [address] | | + +--------+ +--------+ + +
--- OUTSIDE RECORDS SUMMARY | ~2018-04-14 | XMS | Clinical Summary ---
Demographics + + + | Address | [address] | | | [place] [address] | + + + | Home Phone | | + + + | Preferred Language | Unknown | + + + | Marital Status | | + + + | Yarsani Affiliation | 1027 | + + + | Race | Unknown | + + + | Ethnic Group | Unknown | + + + Author + + + | Author | [facility] | | | and Neoana | + + + | Organization | [facility] | | | and [...] [place], | | | | | [place] [address] | | + + + + + | Ana Oneal | ECON | [address] | | | | | [place] | | | | | [address] | | + + + + + Care Team Providers + +------+ + | Care Drug Regulatory Affairs Specialist Name | Role | Phone | + [...] | 09/0 | | Activ | | [id number]-NJW-MDz-so | prior to procedure | | | [...] + + | MEDICARE | MEDICA | [id number] | Medica | [phone] | | | | RE | | re | [phone] | | | | PART A | | | | | | | AND B | | | | | + +--------+ +--------+ + + | MODA | MODA | [id number] | Indemn | [phone] | [address] [address] | | | HEALTH | | ity | [address] | [place] [address] | | | MDCR | | | [...] | [address] | +- | [place] [address] | | | ko | | | [address] Home: | | | | | | | | | | | | | | +- | | | | | | | [address] | | + +--------+ +--------+ + +
--- OUTSIDE RECORDS SUMMARY | ~2018-04-14 | XMS | Clinical Summary ---
Demographics + + + | Address | [address] | | | [place] [address] | + + + | Home Phone | | + + + | Preferred Language | Unknown | + + + | Marital Status | Single | + + + | Bahai Affiliation | CAT | + + + [...] Team Providers + +------+ + | Care Manager Relationship Name | Role | Phone | + +------+ + PP | Unavailable | + +------+ + Source Comments TRAN is fully live on both [facility] and [facility] InPatient.[facility] Allergies Not on File Current Medications [...] | re | [phone] | [place] [address] | | | B | | | | | + +--------+ +--------+ + + | MODA MEDICARE | MODA | xxxxxxxxx | POS | +- | [address] [address] | | SUPPLEMENT | MEDICA | | | [address] | [place] [address] | | | RE | | | [...] | 1950 | +1-000-000- | [place] [address] | | | [place] | | | 0000 | | + +--------+ +--------+ + +"
[~2018-04-14 16:09] MED LIST changes: +AMLODIPINE BESYL5 MG PO; +CALCIUM CARBON200 MG PO; +LEVOTHYROXINE150 MCG PO; +LIOTHYRONINE SO5 MCG PO; +NICORETTE4 M2 BUCCAL
--- OUTSIDE RECORDS SUMMARY | 2018-04-14 16:14 | XMS ---
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 Antonio VISIT COUNT (12 MO.) 2 [facility] TOTAL 2 NOTE: Visits indicate total known visits. ED/C VISIT TRACKING (12 MO.) 04/14/2018 16:09 [facility] TYPE[facility] Emergency COMPLAINT: - STROKE SYMPTOMS 04/07/2018 11:41 [facility] TYPE: Emergency COMPLAINT: - MULTIPLE COMPLAINTS INPATIENT VISIT TRACKING (12 MO.) No inpatient visits to display in this time frame [email or web address]
--- NOTE | 2018-04-14 21:12 | EKG ---
[facility] [facility] [address] [facility] [place] [address] Signed Normal sinus rhythm Normal ECG When compared with ECG of 15-FEB-2017 13:26, Nonspecific T wave abnormality now evident in Inferior leads Confirmed by ABHI ARZATE MD ([id number]) on 04/14/2018 9:12:39 PM Electronically Signed By: ABHI ARZATE MD 04/14/182111 PATIENT NAME: DEMETRIO GILBERT Electrocardiogram DATE OF : 48 PHYSICIAN: ABHI ARZATE MD REPORT #: [id number] REPORT IS CONFIDENTIAL AND NOT TO BE RELEASED WITHOUT AUTHORIZATION
== END 2018-04-14 19:49 | disposition home or self-care (01) ==
LOC: ED 16:09
DX: R41.0 Disorientation, unspecified (principal); F31.9 Bipolar disorder, unspecified; Z60.9 Problem related to social environment, unspecified; I10 Essential (primary) hypertension; Z87.891 Personal history of nicotine dependence; Z88.4 Allergy status to anesthetic agent; Z79.899 Other long term (current) drug therapy
CPT/HCPCS: 70450; 71045; 80053; 81001; 84484; 85025; 85610; 85730; 93005; 93010; 99285

== ENCOUNTER 2018-04-18 17:12 | Inpatient (IN) | payer MEDICARE, OTHER ==
[~2018-04-18] VITALS: Ht 162.6 cm; Wt 57.1 kg
--- OUTSIDE RECORDS SUMMARY | ~2018-04-18 | XMS | Clinical Summary ---
Demographics + + + | Address | [address] | | | [place] [address] | + + + | Home Phone | | + + + | Preferred Language | Unknown | + + + | Marital Status | Single | + + + | Taoist Affiliation | CAT | + + + | Race | White | + + + | Ethnic Group | Not or | + + + Author + + + | Author | [facility] | + + + | Organization | [facility] | + + + | Address | Unknown | + + + | Phone | Unavailable | + + + Care Team Providers + +------+ + | Care Retail Agent Name | Role | Phone | + +------+ + PP | Unavailable | + +------+ + Source Comments TRAN is fully live on both [facility] and [facility] InPatient.[facility] Allergies Not on File Current Medications Not on file Active Problems Not on file Social History + +-------+ +--------+------+ | Tobacco Use | Types | Packs/Day | Years | Date | | | | | Used | | + +-------+ +--------+------+ | Never Assessed | | | | | + +-------+ +--------+------+ + + + | Sex Assigned at | Date Recorded | | | | + + + | Not on file | | + + + Plan of Treatment + + + + + | Health Maintenance | Due Date | Last Done | Comments | + + + + + | Pneumococcal (Adult) | | | | | (1 of 2 - PCV13) | 4 | | | + + + + + | INFLUENZA VACCINE | | | | | (FLU SHOT) | 8 | | | + + + + + Results Not on filefrom Last 3 Months Insurance + +--------+ +--------+ + + | Payer | Benefi | Subscriber | Type | Phone | Address | | | t Plan | ID | | | | | | / | | | | | | | Group | | | | | + +--------+ +--------+ + + | MEDICARE | MEDICA | xxxxxxxxxx | Medica | +- | [address] | | | RE A & | | re | [phone] | [place] [address] | | | B | | | | | + +--------+ +--------+ + + | MODA MEDICARE | MODA | xxxxxxxxx | POS | +- | [address] [address] | | SUPPLEMENT | MEDICA | | | [address] | [place] [address] | | | RE | | | | | | | SUPPLE | | | | | | | MENT | | | | | + +--------+ +--------+ + + + +--------+ +--------+ + + | Guarantor Name | Accoun | Relation to | Date | Phone | Billing Address | | | t Type | Patient | of | | | | | | | | | | + +--------+ +--------+ + + | DEMETRIO GILBERT | Person | Self | [birth year] | Home: | [address] | | | al/Fam | | 1950 | +1-000-000- | [place] [address] | | | [place] | | | [address] | | + +--------+ +--------+ + +"
--- OUTSIDE RECORDS SUMMARY | ~2018-04-18 | XMS | Clinical Summary ---
Demographics + + + | Address | [address] | | | [place] [address] | + + + | Home Phone | | + + + | Preferred Language | Unknown | + + + | Marital Status | Single | + + + | Gnosticism Affiliation | CAT | + + + [...] Team Providers + +------+ + | Care Cold Reduction Roller Name | Role | Phone | + +------+ + PP | Unavailable | + +------+ + Source Comments TRAN is fully live on both [facility] Ambulatory and [facility] InPatient.[facility] Allergies Not on File Current Medications Not [...] | re | [address] | [place] [address] | | | B | | | | | + +--------+ +--------+ + + | MODA MEDICARE | MODA | xxxxxxxxx | POS | +- | [address] [address] | | SUPPLEMENT | MEDICA | | | [address] | [place] [address] | | | RE | | | [...] | 1950 | +1-000-000- | [place] [address] | | | [place] | | | 0000 | | + +--------+ +--------+ + +"
--- OUTSIDE RECORDS SUMMARY | ~2018-04-18 | XMS | Clinical Summary ---
Demographics + + + | Address | [address] | | | [place] [address] | + + + | Home Phone | | + + + | Preferred Language | Unknown | + + + | Marital Status | Single | + + + | Jainism Affiliation | CAT | + + + [...] Team Providers + +------+ + | Care Gas And Oil Checker Name | Role | Phone | + +------+ + PP | Unavailable | + +------+ + Source Comments TRAN is fully live on both [facility] Ambulatory and [facility] InPatient.[facility] Allergies Not on File Current Medications Not [...] | re | [address] | [place] [address] | | | B | | | | | + +--------+ +--------+ + + | MODA MEDICARE | MODA | xxxxxxxxx | POS | +- | [address] [address] | | SUPPLEMENT | MEDICA | | | [address] | [place] [address] | | | RE | | | [...] | 1950 | +1-000-000- | [place] [address] | | | ko | | | 0000 | | + +--------+ +--------+ + +"
--- OUTSIDE RECORDS SUMMARY | ~2018-04-18 | XMS | Clinical Summary ---
Demographics + + + | Address | [address] | | | [place] [address] | + + + | Home Phone | | + + + | Preferred Language | Unknown | + + + | Marital Status | | + + + | Tenriism Affiliation | 1027 | + + + | Race | Unknown | + + + | Ethnic Group | Unknown | + + + Author + + + | Author | [facility] | | | and Neoana | + + + | Organization | [facility] | | | and Neo[facility] | [...] [place], | | | | | [place] [address] | | + + + + + | Ana Oneal | ECON | [address] | | | | | [place] | | | | | [address] | | + + + + + Care Team Providers + +------+ + | Care Nodulizer Name | Role | Phone | + [...] | 09/0 | | Activ | | [id number]-JPG-DSs-so | prior to procedure | | | [...] + + | MEDICARE | MEDICA | [id number] | Medica | [phone] | | | | RE | | re | [phone] | | | | PART A | | | | | | | AND B | | | | | + +--------+ +--------+ + + | MODA | MODA | [id number] | Indemn | [phone] | [address] [address] | | | HEALTH | | ity | [address] | [place] [address] | | | MDCR | | | [...] | 194 | +- | [place] [address] | | | [place] | | | [address] Home: | | | | | | | | | | | | | | +- | | | | | | | 159 | | + +--------+ +--------+ + +
--- OUTSIDE RECORDS SUMMARY | ~2018-04-18 | XMS | Clinical Summary ---
Demographics + + + | Address | [address] | | | [place] [address] | + + + | Home Phone | | + + + | Preferred Language | Unknown | + + + | Marital Status | | + + + | Gnosticist Affiliation | 1027 | + + + | Race | Unknown | + + + | Ethnic Group | Unknown | + + + Author + + + | Author | [facility] | | | and Neo[facility] | + + + | Organization | [facility] | | | and [...] [place], | | | | | [place] [id number] | | + + + + + | Ana Oneal | ECON | [address] | | | | | [place] | | | | | [address] | | + + + + + Care Team Providers + +------+ + | Care Final Inspector And Tester Name | Role | Phone | + [...] | 09/0 | | Activ | | [id number] | prior to procedure | | | [...] + + | MEDICARE | MEDICA | [id number] | Medica | [phone] | | | RE | | re | [phone] | | | | PART A | | | | | | | AND B | | | | | + +--------+ +--------+ + + | MODA | MODA | [id number] | Indemn | [phone] | [address] [address] | | | HEALTH | | ity | [phone] | [place] [address] | | | MDCR | | | [...] | [phone] | [phone]- | [place] [address] | | | [place] | | | [phone] Home: | | | | | | | | | | | | | | +- | | | | | | | [phone] | | + +--------+ +--------+ + +
--- OUTSIDE RECORDS SUMMARY | ~2018-04-18 | XMS | Clinical Summary ---
Demographics + + + | Address | [address] | | | [place] [address] | + + + | Home Phone | | + + + | Preferred Language | Unknown | + + + | Marital Status | | + + + | Presybeterian Affiliation | 1027 | + + + | Race | Unknown | + + + | Ethnic Group | Unknown | + + + Author + + + | Author | [facility] | | | and Neoana | + + + | Organization | [facility] | | | and Neo[facility] [...] [place], | | | | | [place] [id number] | | + + + + + | Ana Oneal | ECON | [address] | | | | | [place] | | | | | [address] | | + + + + + Care Team Providers + +------+ + | Care Editor Producer Name | Role | Phone | + [...] | 09/0 | | Activ | | [id number] | prior to procedure | | | [...] + + | MEDICARE | MEDICA | [id number] | Medica | [phone] | | | RE | | re | [phone] | | | | PART A | | | | | | | AND B | | | | | + +--------+ +--------+ + + | MODA | MODA | [id number] | Indemn | [phone] | [address] [address] | | | HEALTH | | ity | [phone] | [place] [address] | | | MDCR | | | [...] | [phone] | +- | [place] [address] | | | [place] | | | [phone] Home: | | | | | | | | | | | | | | +- | | | | | | | [phone] | | + +--------+ +--------+ + +
--- OUTSIDE RECORDS SUMMARY | 2018-04-18 17:16 | XMS ---
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 Antonio VISIT COUNT (12 MO.) [address] [facility] TOTAL 3 NOTE: Visits indicate total known visits. 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
--- NOTE | 2018-04-18 22:33 | NUR ---
pt arrived to floor from ED at 1015. elisabet rn admitted patient to room. This RN started LR bolus and LR continuous ivf at 100ml/hr. left arm redness marked with pen. left arm in sling. Tele [address] Pt requesting water. Pt reaching toward right side of bed. When asked what she is reaching for she replied "I want my coffee". Pt reoriented to no fluids at bedside at this time. When asked what the date was she replied "1950". Pt has glasses on now while lying in bed.
--- NOTE | 2018-04-19 00:20 | NUR ---
PT CONFUSED. SETTING OFF BED ALARM. FIRST TIME SHE WAS APPEARING TO BE GETTING OUT OF BED. THIS RN AND NIMISHA RN ADJUSTED PT UP IN BED AND REPLACED BLANKETS ON HER. THE SECOND TIME SHE WAS FOUND STANDING AT BEDSIDE. THIS RN AND ALEX FAULKNER ASSISTED PATIENT TO BATHROOM. REORIENTED. PT PULLING AT MCKINNEY CATHETER. SECURED WITH TAPE TO LEG. BACK TO BED NOW. BED ALARM ON.
--- NOTE | 2018-04-19 00:29 | NUR ---
PT SLEEPING. EYES CLOSED. RR EVEN AND UNLABORED. SNORING.
--- NOTE | 2018-04-19 01:45 | NUR ---
PATIENT RESTING IN BED WITH EYES CLOSED, BREATHING IS EVEN AND UNLABORED. CALL LIGHT WITHIN REACH, BED ALARM ON.
--- NOTE | 2018-04-19 03:30 | NUR ---
PATIENT RESTING IN BED, BREATHING IS EVEN AND UNLABORED. PATIENT MODERATELY DIFFICULT TO AROUSE, RESPONSIVE AND KEPT STATING "OKAY" WITH ALL COMMANDS, TOOK SEVERAL PROMPTS FOR PATIENT TO RESPOND APPROPRIATELY. PATIENT KNOWS NAME AND AND YEAR, STATES THAT SHE IS IN [place] AND THE MONTH IS JULY. PATIENT DENIES PAIN, FLACC SCORE OF 3 WITH MOVEMENT, QUICKLY BECOMES RESTFUL AFTER AT REST. BED ALARM ON, IVF INFUSING.
--- NOTE | 2018-04-19 06:24 | NUR ---
PATIENT GETTING OUT OF BED BY HERSELF, STATES "I'M GETTING READY TO GO HOME." REORIENTED PATIENT TO HOSPITAL, PATIENT IS ORIENTED TO SELF, TIME, DISORIENTED TO SITUATION AND SURROUNDINGS. PATIENT STATES THAT SHE NOW UNDERSTANDS SHE IS IN HOSPITAL. NOW RESTING IN BED AGAIN, BREATHING IS EVEN AND UNLABORED. DENIES FURTHER NEEDS AT THIS TIME. CALL LIGHT WITHIN REACH, BED ALARM ON.
--- NOTE | 2018-04-19 06:48 | NUR ---
ASSISTED PATIENT TO BEDSIDE, SBA TO VOID. NOW RESTING IN BED AGAIN. TACHYPNEA NOTED, PATIENT STATES BREATHING IS AT BASELINE FOR HIM. RR OF 20 NOTED WHILE PATIENT IS ASLEEP. DENIES FURTHER NEEDS. CALL LIGHT WITHIN REACH.
--- NOTE | 2018-04-19 08:41 | NUR ---
SET UP FOR BREAKFAST. PASTOR MUNIZ IN ROOM.
--- NOTE | 2018-04-19 08:59 | NUR ---
patient very drowsy this am for assessment. woke to calling her name. was able to state name, date of , location, and month but as soon as she was done talking patient would fall asleep. unable to take a sip of water. unable to given medication at this time due to patient not being awake. updated drPedro Luis and charge nurse of patients condition. [facility]
--- NOTE | 2018-04-19 10:03 | NUR ---
patient back from x-ray. one assist to bed from wc. patient painful with movement. ice applied to l shoulder once to bed. hob elevated. medication given to patient. set up for breakfast.
--- NOTE | 2018-04-19 10:28 | NUR ---
pt in bed very sleepy. pt requested warm blanket, blanket given. pt refused shwoer, oral care. call light within reach.
--- NOTE | 2018-04-19 11:05 | NUR ---
patient sleeping. rr even and unlabored. hob elevated and ice to l shoulder.
[2018-04-19] MEDS ORDERED: LEVOTHYROXINE112 MCG PO (12:49)
[2018-04-19] MEDS ORDERED: DITROPAN XL10 MG PO (12:50)
--- NOTE | 2018-04-19 12:56 | NUR ---
friends in room. patient awake. asking about what happened. talking with friends at this time.
--- NOTE | 2018-04-19 13:05 | NUR ---
MED REC COMPLETE
--- NOTE | 2018-04-19 13:31 | NUR ---
CHERRI AWAKE. PATIENT ORIENTED TO SELF, LOCATION, PATIENT NEW THE PRESIDENT, AND MONTH. PATIENT STATED THAT SHE DOES NOT REMEMBER WHEN SHE FELL. THE EVENT IS FUZZY. ASKING QUESTIONS ABOUT HOW LONG SHE HAS BEEN HERE AND WHAT TIME SHE GOT HERE. ASSESSMENT COMPLETE.
--- NOTE | 2018-04-19 13:51 | NUR ---
PT SET UP FOR LUNCH. TOLERATING WELL.
--- NOTE | 2018-04-19 14:15 | NUR ---
pt resting in bed safely. family is visiting. pt has no needs at this time.
--- NOTE | 2018-04-19 15:25 | NUR ---
PHYSICAL THERAPY IN ROOM. PATIENT ABLE TO PARTICIPATE WITH THERAPY. PAIN CURRENTLY A 3/ 10
--- NOTE | 2018-04-19 15:50 | NUR ---
FAYE D/C'Scot. PATIENT TOLERATED WELL. CALL LIGHT WITHIN REACH. EDUCATED ABOUT CALLING BEFORE GETTING OUT OF BED.
--- NOTE | 2018-04-19 16:21 | NUR ---
REPORTED 9/10 SHOLDER PAIN. PRN OXYCODONE GIVEN. DENIES FURTHER NEEDS.
--- NOTE | 2018-04-19 17:43 | NUR ---
pt is resting in bed safely. pt ordered dinner. pt has no needs at this time.
--- NOTE | 2018-04-19 19:15 | NUR ---
BEDSIDE REPORT RECEIVED FROM HERBERTH MACKEY. IVF INFUSING WNL. HOB ELEVATED. SLING IN PLACE LEFT ARM, PILLOW UNDER ARM. PT DOES NOT RATE PAIN, STATES "NOT HIGH YET". VERBALIZES UNDERSTANDING TO USE CALL LIGHT FOR INCREASING PAIN, OUT OF BED. BED ALARM ON. FAMILY IN ROOM. ICE PACK IN PLACE ON LEFT ARM, OUTLINED WITH MARKER, NO REDNESS OUTSIDE MARGINS.
--- NOTE | 2018-04-19 20:30 | NUR ---
BLADDER SCAN DONE PER HERBERTH MEDINA. NOTIFIED HERBERTH
--- NOTE | 2018-04-19 20:41 | NUR ---
PT ASSESSMENT COMPLETE. PT RATES PAIN 5/10, WITH PAIN GOAL 3/10 IN LEFT SHOULDER, SCHEDULED TYLENOL ADMINISTERED. NEW ICE PACK IN PLACE. CSM INTACT BUE, BLE WITH NUMBNESS NOTED IN LEFT HAND. PT ALERT AND ORIENTED X 4, BED ALARM IN PLACE. VITALS STABLE. PT HAS CALL LIGHT IN REACH.
--- NOTE | 2018-04-19 21:59 | NUR ---
HELPED PT TO THE BATHROOM AND BACK TO BED WITH HER CANE. I DID A COMPLETE BED CHANGE DUE TO HER BEING INCONTINENT OF URINE IN HER BED. SAID SHE FELL ASLEEP. WIPED HER DOWN WITH BATH WIPES. PUT A ATTEND ON HER. NEW ICE PACK GIVEN FOR HER ARM. BEDSIDE TABLE AND CALL LIGHT IN REACH.
--- NOTE | 2018-04-19 23:20 | NUR ---
CHECKED ON PT, EYES CLOSED, BREATHING NON-LABORED, IVF INFUSING. CALL LIGHT WITH PT.
--- NOTE | 2018-04-20 00:40 | NUR ---
HELPED PT TO THE BATHROOM AND BACK TO BED WITH HER CANE. BEDSIDE TABLE AND CALL LIGHT IN REACH. PT NEEDS NOTHING ELSE AT THIS TIME.
--- NOTE | 2018-04-20 01:28 | NUR ---
IN ROOM TO CHECK ON PT, SLEEPING, SNORING, HOB ELEVATED, LEFT ARM IN SLING ELEVATED ON PILLOW. CALL LIGHT NEXT TO PT.
--- NOTE | 2018-04-20 03:38 | NUR ---
CHECKED ON PT, SNORING, EYES CLOSED, BREATHING NON-LABORED. HOB ELEVATED, ARM IN SLING, ELEVATED ON PILLOW. LIGHTS OFF IN ROOM.
--- NOTE | 2018-04-20 05:54 | NUR ---
PT ASSESSMENT COMPLETE. PT SLEEPING, AWAKENS TO VOICE. NEW ICE PACK TO LEFT SHOULDER. CSM INTACT LEFT ARM. NEW BAG IVF INFUSING WNL. HR 64 ON TELE 4 REGULAR RHTYHM. CALL LIGHT IN REACH.
--- NOTE | 2018-04-20 05:55 | NUR ---
SEE INDIVIDUAL ASSESSMENTS FOR SHIFT ASSESSMENT.
--- NOTE | 2018-04-20 08:06 | NUR ---
PT IS SOMEWHAT DISCOURAGED TODAY. TRYING TO EAT SOME BREAKFAST. PT INVITED ME TO PRAY FOR HER. WILL FOLLOW NEEDED
--- NOTE | 2018-04-20 08:33 | NUR ---
Patient in bed resting, refused any breakfast, up to the restrooom, patient complained of cold chils, warm blanket was given, face washed. call light light in reach. no other needs at this time.
--- NOTE | 2018-04-20 09:08 | NUR ---
PATIENT RESTING IN BED WITH HOB ELEVATED. PATIENT RATING PAIN THIS MORNING 10/07. SCHEDULED TYLENOL GIVEN. PATIENT REFUSING TO ORDER BREAKFAST. PATIENT REFUSED TO SIT IN THE CHAIR THIS MORNING. ASKING IF SHE COULD SLEEP A LITTLE LONGER. STATING AT HOME SHE SLEEPS IN. PATIENT ANSWERED ORIENTATION QUESTIONS CORRECTLY AT THIS TIME. PATIENT STATING THE EVENT OF WHICH SHE FELL IS STILL " FUZZY" PATIENT WAS EASY TO WAKE THIS MORNING, BUT DOES NOT HAVE A LOT OF MOTIVIATION TO DO ACTIVITY THIS AM. UPDATED ON PLAN OF CARE AND THE NEED TO WORK WITH PT/OT
--- NOTE | 2018-04-20 10:07 | NUR ---
patinet sleeping at this time. rr even and unlabored at this time.
--- NOTE | 2018-04-20 10:24 | NUR ---
PATIENT UP TO BATHROOM AND BACK TO BED, 1 PERSON ASSIST AND CANE. CALL LIGHT IN REACH. NO FURTHER NEEDS AT THIS TIME.
--- NOTE | 2018-04-20 11:09 | NUR ---
patient did agree to eat a muffin. tolerated well. refused to sit up to chair. stated that her pain was 6/10. gave 1 tab of oxy for pain management. fresh ice applied to l shoulder. patient stating, " i dont feel good today" but unable to state why or how she feels. not motivated at this time. needs a lot of encouragement. updated with plan of care for PT to work with patient.
--- NOTE | 2018-04-20 12:04 | NUR ---
CHECKED ON PT, SHE WAS LAYING IN BED, MENTIONED THAT TODAY IS A DIFFICULT DAY. PAIN SEEMS TO BE VERY STRONG TODAY. SHE MENTIONED THAT RN HAD JUST GIVEN HER SOMETHING, AND SHE HOPES IT WORKS SOON. EXTENDED A BLESSING, WILL FOLLOW NEEDED
--- NOTE | 2018-04-20 12:42 | NUR ---
patient refusing lunch tray. patient stating she does not want to get up. pateint given talk about the importance of walking and getting out of bed. patient refused to eat and got mad and refused to talk to me. patient stating, " maybe later we will do something". updated dr. alford. notifed per patients request
--- NOTE | 2018-04-20 14:45 | NUR ---
DR MANISHA KITCHEN. PT AGREED TO GET OOB FOR SHOWER AND PT.
--- NOTE | 2018-04-20 15:30 | NUR ---
PATIENT UP TO SHOWER CHAIR 1 PERSON ASSIST AND CANE. PATIENT ASSITED IN SHOWER. PATIENT BRUSHED TEETH AND COMBED HAIR AT SINK. NEW GOWN PROVIDED. PATIENT NOW TO CHAIR, 1 PERSON ASSIST AND CANE. HANS COMPLAINED OF BEING NAUSEAS. RN NOTIFIED. FRESH WTAER GIVEN. CALL LIGHT IN REACH. NO FURTHER NEEDS AT THIS TIME.
--- NOTE | 2018-04-20 16:54 | NUR ---
SBA WITH CANE FOR AMBULATION IN [place]. PT WAS ABLE TO DO 1 LAP WITH 1 SITTING BREAK. BACK TO CHAIR FOR DINNER. CALL LIGHT IN REACH. PT DENIES PAIN AT THIS TIME.
--- NOTE | 2018-04-20 18:10 | NUR ---
PATIENT SETTING IN CHAIR EATING. FRESH WATER GIVEN. CALL LIGHT IN REACH. NO OTHER NEEDS AT THIS TIME.
--- NOTE | 2018-04-20 21:33 | NUR ---
ALL PM MEDS GIVEN AND 5MY OXYCODONE FOR 8/10 LEFT SHOULDER PAIN.
--- NOTE | 2018-04-20 23:00 | NUR ---
PATIENT HAD TO GET ANOTHER OXYCODONE SHE SAYS HER PAIN IS NOW 9/10 AND THE LAST MEDICATION WAS NOT EFFECTIVE. ICE BAGS IN PLACE ON LEFT SHOULDER, WHICH IS IN A SLING.
--- NOTE | 2018-04-21 01:00 | NUR ---
PATIENT RESTING QUIETLY, EYES CLOSED, RESPIRATIONS EVEN AND REGULAR.
--- NOTE | 2018-04-21 03:00 | NUR ---
CALL LIGHT IN REACH, RESPIRATIONS REGULAR AND EVEN, EYES CLOSED.
--- NOTE | 2018-04-21 05:00 | NUR ---
PATIENT STILL APPEARS TO BE SLEEPING COMFORTABLY. EYES CLOSED RESPIRATIONS EVEN AND REGULAR.
--- NOTE | 2018-04-21 05:55 | NUR ---
VITALS DONE AND CHARTED. BEDSIDE TABLE AND CALL LIGHT IN REACH.
--- NOTE | 2018-04-21 07:00 | NUR ---
REPORT GIVEN TO KRZYSZTOF KEVIN.
--- NOTE | 2018-04-21 08:40 | NUR ---
BEDSIDE REPORT RECEIVED FROM NIMISHA KEVIN. WHITE BOARD UPDATED. PATIENT AWAKENED TO VOICE. LEFT ARM IN SLING. REDNESS GREATLY IMPROVED FROM WHEN THIS RN LAST SAW IT UPON ADMISSION. OXYCODONE 10MG GIVEN PER REQUEST FOR 9/10 PAIN IN LEFT SHOULDER.
--- NOTE | 2018-04-21 10:43 | NUR ---
pt asked to use the restroom, assisted pt to bathroom with aid of her cane. pt then voided and returned to bed. pt is resting safely with call light inreach. pt asked for more ice water and a new ice pack.
--- NOTE | 2018-04-21 12:35 | NUR ---
ROUNDED ON PATIENT FOR MEDICATION ADMINISTRATION. PATIENT REPORTS FEELING "ITCHY" ON LEFT ARM AND A BIT "QUEZZY", PRN ZOFRAN ADMINISTERED. NO COMPLAINS OF PAIN. CALL LIGHT WITHIN REACH. POSSESSIONS AT BEDSIDE. NO MORE COMPLAINTS AT TIME.
--- NOTE | 2018-04-21 14:44 | NUR ---
pt is resting in bed with call light in reach. pt had not eaten lunch yet but had just called down her lunch order.
--- NOTE | 2018-04-21 15:07 | NUR ---
ROUNDED ON PATIENT FOR MEDICATION ADMINISTRATION AND AFTERNOON ASSESSMENT. PATIENT VISIBLY UPSET ABOUT PET BEING LEFT ALONE AT HOME AND ASKED HOW THEY MIGHT BE ABLE TO "GET OUT OF HERE", NURSING STAFF REASSURED PATIENT THROUGH THERAPEUTIC COMMUNICATION. EDUCATED PATIENT THAT THEIR PET IS ABLE TO VISIT, BUT UNABLE TO STAY THE NIGHT, UNABLE TO ASSESS PATIENT'S UNDERSTANDING OF EDUCATION. PLAN TO REASSURE PATIENT AND PROVIDE THERAPEUTIC COMMUNICATION. DIETARY IN ROOM, PATIENT REFUSED TO PROVIDE DINNER ORDER. VISITORS IN ROOM, PLAN TO BRING PET IN FOR PATIENT TO VISIT WITH. IV IN RIGHT HAND LEAKING, IV REMOVED, CATHETER INTACT.
--- NOTE | 2018-04-21 19:07 | NUR ---
pt is resting in bed safely with call light in reach. pt did not need anything at this time.
--- NOTE | 2018-04-21 19:17 | NUR ---
ROUNDED ON PATIENT TO ASSESS PAIN, PATIENT REPORTS A "6/10" PAIN IN LEFT SHOULDER. PATIENT ALSO REPORTS FEELING BETTER AFTER HAVING VISITORS BRING HER DOG IN TODAY TO VISIT WITH HER. PATIENT EXHIBITS AN INCREASED IMPROVEMENT IN MOOD AND A CALMER DEMEANER. NO COMPLAINTS AT THIS TIME. POSSESSIONS AT BEDSIDE.
--- NOTE | 2018-04-21 21:40 | NUR ---
PATIENT GIVEN HER PM MEDS. 5MG OXYCODONE GIVEN FOR 7/10 LEFT SHOULDER PAIN AND PATIENT WAS HAVING SOME NAUSEA AND GOT 4MG PO ZOFRAN. NEW ICE BAG PLACED ON LEFT SHOULDER, WHICH IS STILL IN THE SLING.
--- NOTE | 2018-04-21 22:03 | NUR ---
VITALS AND I&OS DONE AND CHARTED. HEKPED PT TO THE BATHROOM AND BACK TO BED WITH HER CANE. BEDSIDE TABLE AND CALL LIGHT IN REACH.
--- NOTE | 2018-04-22 00:24 | NUR ---
PATIENT'S NAUSEA AND PAIN SEEM TO HAVE RESOLVED SHE IS NOW RESTINGG QUIETLY, EYES CLOSED, RESPIRATIONS EVEN AND REGULAR, FACE IS RELAXED. CALL LIGHT IN REACH.
--- NOTE | 2018-04-22 00:47 | NUR ---
PATIENT WOKE UP AND SAID SHE FELT LIKE SHE HAD SLEPT ON HER ARM WRONG AND WAS HAVING 9/10 PAIN IN HER LEFT ARM. ARM REPOSITIONED ON A PILLOW, 500MG TYLENOL GIVEN PO, AND A NEW IV BAG PUT IN PLACE. ARM IS WARM, PULSES ARE PRESENT, CAP REFILL LESS THAN 3 SECONDS. PATIENT GOING TO TRY AND GO BACK TO SLEEP.
--- NOTE | 2018-04-22 02:24 | NUR ---
PATIENT RESTING QUIETLY AT THIS TIME. NO FACIAL GRIMACE, SLIGHT SNORE. LAYING SUPINE HEAD OF BED SLIGHTLY ELEVAATED. RESPIRATIONS REGULAR AND EVEN. EYES CLOSED AND CALL LIGHT IN REACH.
--- NOTE | 2018-04-22 06:00 | NUR ---
VITALS AND I&OS DONE AND CHARTED. BEDSIDE TABLE AND CALL LIGHT IN REACH. HELPED HER TO THE BATHROOM AND BACK TO BED WITH HER FWW. PT NEEDS NOTHING AT THIS TIME.
--- NOTE | 2018-04-22 07:16 | NUR ---
RECIEVED REPORT FROM NIMISHA KEVIN. PATIENT RESTING COMFORTABLY IN BED. CALL LIGHT WITHIN REACH. WHITE BOARD UPDATED. POSSESSIONS AT BEDSIDE. SALINE LOCKED. NO COMPLAINTS OR NEEDS AT THIS TIME.
--- NOTE | 2018-04-22 07:45 | NUR ---
OTHER HAN NEEDING SOME MEDICATION FOR PAIN A COUPLE TIMES PATIENT SLEPT WELL THROUGH THE NIGHT. REPORT GIVEN TO HERBERTH CRONIN.
--- NOTE | 2018-04-22 08:40 | NUR ---
PATIENT RESTING IN BED, EYES CLOSED. CALL LIGHT IN REACH. NO OTHER NEEDS AT THIS TIME.
--- NOTE | 2018-04-22 09:56 | NUR ---
PATIENT RESTING IN BED. PATIENT STATES SHE HASN'T VOIDED YET TODAY AND DOESNT FEEL THAT SHE NEEDS TO. THIS HEAD PORTER BAGGAGE WILL RETURN AT A LATER TIME TO ASSIST PATIENT. PATIENT ENCOURAGED TO DRINK MORE FLUIDS. RN IN ROOM. NO OTHER NEEDS AT THIS TIME.
--- NOTE | 2018-04-22 10:00 | NUR ---
ASSISTED PATIENT TO BATHROOM TO VOID. STEADY ON FEET WITH CANE. NOTIFIED GENERAL SALES MANAGER PATIENT WILL USE CALL LIGHT WHEN READY TO GO BACK TO BED. BREAKFAST ORDERED, PATIENT STATES " I AM READY TO JUST GO HOME". INFORMED PATIENT OF DISCHARGE PROCESS AND THAT SPRINK[employer]ER TRUCK DRIVER WOULD BE IN TO SEE PATIENT IN THE MORNING.
--- NOTE | 2018-04-22 12:38 | NUR ---
ROUNDED ON PATIENT TO ASSESS PAIN LEVEL. PATIENT RESTING COMFORTABLY IN CHAIR, WITH LUNCH NEARBY. CALL LIGHT WITHIN REACH. POSSESSIONS AT BEDSIDE. NO MORE COMPLAINTS AT THIS TIME.
--- NOTE | 2018-04-22 14:25 | NUR ---
PATIENT SITTING UP IN BEDSIDE RECLINER, CALL LIGHT IN REACH. PATIENT HAS HAD NO OUTPUT AND STATES SHE DOESNT NEED TO GO AND DOESNT WANT TO TRY, PATIENT ENCOURAGED TO DRINK FLUIDS. RN IN ROOM. NO OTHER NEEDS AT THIS TIME.
--- NOTE | 2018-04-22 15:18 | NUR ---
PATIENT REFUSING TO GET UP TO TRY TO VOID. PATIENT STATES SHE WANTS A PAIN PILL, AND THAT HER PAIN IS AT A 10 OUT OF 10. RN NOTIFIED.
--- NOTE | 2018-04-22 16:09 | NUR ---
ROUNDED ON PATIENT FOR AFTERNOON ASSESSMENT. PATIENT RESTING COMFORTABLY IN CHAIR. BLINDS IN ROOM OPENED TO LET SOME LIGHT IN. PATIENT REPORTS SOME NAUSEA, DENIES WANTING MEDICATION AT THIS TIME, STATES "I THINK FOOD MIGHT HELP". DENIES PAIN AT THIS TIME. CALL LIGHT WITHIN REACH. POSSESSIONS AT BEDSIDE. NO MORE COMPLAINTS AT THIS TIME. WILL CONTINUE TO MONITOR. PLAN TO NOTIFY DIETARY OF SOME DINNER ADDITIONS THE PATIENT WANTED TO ADD.
--- NOTE | 2018-04-22 17:53 | NUR ---
ROUNDED ON PATIENT FOR MEDICATION ADMINSTRATION. PATIENT RESTING COMFORTABLY IN CHAIR. CALL LIGHT WITHIN REACH. POSSESSIONS AT BEDSIDE. NO COMPLAINTS AT THIS TIME.
--- NOTE | 2018-04-22 19:02 | NUR ---
PATIENT ALERT AND ORIENTED X4 TODAY. WORKED WITH PT. SALINE LOCKED. PRN OXYCODONE, LAST DOSE AT 1531. PRN TYLENOL, LAST DOSE 1421. PRN ZOFRAN, LAST DOSE AT 0936. AMBULATED IN HALLWAY TODAY AND UP IN CHAIR. [place] AND MIRALAX PROVIDE FOR BOWEL REGIMEN.
--- NOTE | 2018-04-22 19:40 | NUR ---
RECEIVED REPORT FROM HERBERTH MISHRA. PT LAYING IN BED, HOB ELEVATED, AWAKE. PT C.O. PAIN 7/10 IN LEFT SHOULDER. ICE PACK AND WARM BLANKET GIVEN PER PT REQUEST. BED ALARM, CALL LIGHT IN REACH.
--- NOTE | 2018-04-22 20:50 | NUR ---
CALL LIGHT ANSWERED, SBA TO RESTROOM FOR VOID. PT RATES PAIN 8/10 IN LEFT SHOULDER, PRN PAIN MEDICATION PROVIDED REQUESTED, ADDL ICE PACK IN PLACE, HOB ELEVATED. LEFT ARM IN SLING. CALL LIGHT IN REACH. ICE WATER PROVIDED.
--- NOTE | 2018-04-22 22:18 | NUR ---
ASSESSMENT COMPLETE. GENERALIZED SWELLING AND BRUISING IN LEFT ARM AND HAND. RADIAL PULSE NOTED ON LEFT SIDE, PT DENIES NUMBNESS OR TINGLING. L ARM IN SLING, ICE APPLIED TO SHOULDER. PT REPORTS PAIN REMAINS AT 8/10. NEURO CHECK WNL, PT REQUESTING TO GO HOME, EDUCATION PROVIDED REGUARDING CARE PLAN. BED ALARM ON, CALL LIGHT IN REACH. NO FURTHER NEEDS AT THIS TIME.
--- NOTE | 2018-04-22 22:33 | NUR ---
DR. ISSA CALLED AND UPDATED ON PT REPORTED UNCONTROLLED PAIN. NEW ORDERS RECEIVED, REPEATED BACK.
--- NOTE | 2018-04-22 22:54 | NUR ---
RESPONDED TO CALL LIGHT. PT REPORTS PAIN REMAINS 8/10. PRN PAIN MEDICATION ADMINISTERED. PT UP TO RESTROOM WITH SBA AND CANE TO VOID X1. BED ALARM ON, CALL LIGHT IN REACH.
--- NOTE | 2018-04-23 00:04 | NUR ---
IN ROOM TO CHECK ON PT. PT AWAKE, LAYING IN BED. PT STATED PAIN IN LEFT SHOULDER WAS 8-9/10. PT EDUCATION PROVIDED ON PRN PAIN MEDICATION, ICE IN PLACE. CALL LIGHT IN REACH, BED ALARM ON.
--- NOTE | 2018-04-23 00:42 | NUR ---
IN ROOM TO ADMINISTER PRN PAIN MEDICATIONS. LEFT SHOULDER PAIN 8-04/09. PRN PAIN MEDICATION ADMINISTERED. ICE PACKS ON SHOULDER. CALL LIGHT IN REACH, BED ALARM ON.
--- NOTE | 2018-04-23 01:01 | NUR ---
RESPONDED TO BED ALARM. PT UP TO RESTROOM TO VOID X1. PT RETURNED TO BED. NEW ICE PACKS APPLIED TO L SHOULDER. CALL LIGHT IN REACH, PT EDUCATED TO USE CALL LIGHT WHEN AMBULATING. BED ALARM ON.
--- NOTE | 2018-04-23 02:31 | NUR ---
IN ROOM TO CHECK ON PT. PT APPEARS TO BE SLEEPING, BREATHING EVEN AND UNLABORED. BED ALARM ON, CALL LIGHT IN REACH. ICE APPLIED TO LEFT SHOULDER.
--- NOTE | 2018-04-23 04:11 | NUR ---
IN ROOM TO CHECK ON PT. PT APPEARS TO BE SLEEPING, BREATHING EVEN, UNLABORED. CALL LIGHT NEXT TO PT. ICE ON LEFT SHOULDER. BED ALARM ON.
--- NOTE | 2018-04-23 04:40 | NUR ---
RESPONDED TO BED ALARM. PT REQUESTS TO USE RESTROOM, SBA WITH CANE TO RESTROOM FOR VOID X1. RETURNED TO BED. ASSESSMENT COMPLETE. GENERALIZED EDEMA TO LEFT SHOULDER, ARM, AND HAND. PAIN 5/10, PT REFUSED PAIN MEDICATION AT THIS TIME. RADIAL PULSE STRONG, PT DENIES NUMBNESS OR TINGLING IN LEFT HAND. PT IS ALERT AND ORIENTED X4. ICE PACK APPLIED TO SHOULDER. CALL LIGHT NEXT TO PT, BED ALARM ON.
--- NOTE | 2018-04-23 06:06 | NUR ---
VITALS AND I&OS DONE AND CHARTED. FRESH WATER GIVEN. CHECKED ICE PACKS, THER WERE STILLICE IN THEM. EMPTIED GARBAGES. BEDSIDE TABLE AND CALL LIGHT WITHIN REACH.
--- NOTE | 2018-04-23 06:17 | NUR ---
PRN PAIN MEDICATIONS ADMINISTERED X3 THROUGHOUT SHIFT. GENERALIZED EDEMA IN LEFT SHOULDER, ARM, AND HAND. PT DENIES NUMBNESS OR TINGLING IN LEFT ARM/HAND. PT ALERT AND ORIENTED X4. HOB ELEVATED WHILE IN BED PER ORDERS. IV SALINE LOCKED. OT EVAL AND CASE MANAGEMENT TODAY. ICE PACK APPLIED TO SHOULDER THROUGHOUT SHIFT. PT IS ANXIOUS TO GET HOME AND WANTS TO KNOW D/C PLAN. SBA WITH CANE TO RESTROOM. IMPULSIVE, BED ALARM ON.
--- NOTE | 2018-04-23 08:18 | NUR ---
PATIENT IN BED RESTING WITH EYES CLOSED. PATIENT REFUSES AM CARE. CALL LIGHT IN REACH. NO FURTHER NEEDS AT THIS TIME.
--- NOTE | 2018-04-23 09:20 | NUR ---
PT SITTING UP IN BED EATING BREAKFAST. REPORTING MINIMAL 3/10 PAIN OF LEFT ARM/SHOULDER. REFUSED PAIN MEDICATION AT THIS TIME. DENIES NAUSEA OR OTHER CONCERNS CURRENTLY. ALERT AND ORIENTED WITH EPISODES OF FORGETFULNESS, EASILY REORIENTED. LEFT ARM IN SLING WITH ICE TO SITE. CALL LIGHT WITHIN REACH.
--- NOTE | 2018-04-23 10:13 | NUR ---
PATIENT IN BED WATCHING TV. FRESHWATER GIVEN. CALL LIGHT IN REACH. NO FURTHER NEEDS AT THIS TIME.
--- NOTE | 2018-04-23 11:34 | NUR ---
PT AMB HALLWAY WITH P.T. WITH SBA AND CANE. PT REPORTED FEELING DIZZY AND WAS ASSISTED BACK TO BED. REPORTING 6/10 LEFT SHOULDER PAIN. MEDICATED WITH 5MG OXY. LEFT ELEVATED ON PILLOW. CALL LIGHT WITHIN REACH.
--- NOTE | 2018-04-23 12:33 | NUR ---
PATIENT UP TO SHOWER CHAIR AND BACK TO BED, SBA. OT HELPED GUITAR TEACHER WITH SHOWER. PATIENT ASISSTED IN SHOWER. NEW GOWN PROVIDED. FRESH LINENS. CALL LIGHT IN REACH. NO FURTHER NEEDS AT THIS TIME.
--- NOTE | 2018-04-23 13:10 | NUR ---
PT RESTING IN BED WITH EYES CLOSED, RESP EVEN AND UNLABORED.
--- NOTE | 2018-04-23 13:40 | NUR ---
PATIENT LAYING IN BED WATCHING TV. FRESHWATER GIVEN. CALL LIGHT IN REACH. NO FURTHER NEEDS AT THIS TIME.
== END 2018-04-23 13:55 | disposition swing bed (61) | DRG 563 ==
LOC: ED 17:12 → MS 17:13
PROVIDERS: ADMIT Student in an Organized Health Care Education/Training Program
DX: S42.292A Other displaced fracture of upper end of left humerus, initial encounter for closed fracture (principal); N17.9 Acute kidney failure, unspecified; I10 Essential (primary) hypertension; E89.0 Postprocedural hypothyroidism; K21.9 Gastro-esophageal reflux disease without esophagitis; E86.0 Dehydration; F31.9 Bipolar disorder, unspecified; R52 Pain, unspecified; Z87.891 Personal history of nicotine dependence; Z91.81 History of falling
CPT/HCPCS: 36415; 51702; 51798; 70450; 71045; 73030; 73060; 73200; 80048; 80053; 81001; 82306; 82550; 82607; 82728; 82746; 83540; 83605; 83735; 84466; 85025; 85651; 96365; 96366; 96368; 97110; 97116; 97162; 97165; 97535; 99285; G8978; G8979; J1650; J2543; J3370; J7030; J7120

== ENCOUNTER 2018-04-23 13:55 | Inpatient (IN) | payer MEDICARE, OTHER ==
[~2018-04-23] VITALS: Ht 162.6 cm; Wt 57.1 kg
--- OUTSIDE RECORDS SUMMARY | ~2018-04-23 | XMS | Clinical Summary ---
Demographics + + + | Address | [address] | | | [place] [address] | + + + | Home Phone | | + + + | Preferred Language | Unknown | + + + | Marital Status | Single | + + + | Mormon Affiliation | CAT | + + + [...] Team Providers + +------+ + | Care Director Cardiac Name | Role | Phone | + +------+ + PP | Unavailable | + +------+ + Source Comments TRAN is fully live on both [facility] and [facility] InPatient.[facility] Allergies Not on File Current Medications Not [...] | re | [phone] | [place] [address] | | | B | | | | | + +--------+ +--------+ + + | MODA MEDICARE | MODA | xxxxxxxxx | POS | +- | [address] [address] | | SUPPLEMENT | MEDICA | | | [phone] | [place] [address] | | | RE | | | [...] | 1950 | [phone] | [place] [address] | | | ko | | | 0000 | | + +--------+ +--------+ + +"
--- OUTSIDE RECORDS SUMMARY | ~2018-04-23 | XMS | Clinical Summary ---
Demographics + + + | Address | [address] | | | [place] [address] | + + + | Home Phone | | + + + | Preferred Language | Unknown | + + + | Marital Status | | + + + | Adventist Affiliation | [phone] | + + + | Race | Unknown | + + + | Ethnic Group | Unknown | + + + Author + + + | Author | [facility] | | | and [facility] | + + + | Organization | [facility] | | | and [facility] | [...] [place], | | | | | [place] [id number] | | + + + + + | Ana Oneal | ECON | [address] | | | | | [place] | | | | | [address] | | + + + + + Care Team Providers + +------+ + | Care Sales Agent Insurance Name | Role | Phone | + [...] | 09/0 | | Activ | | [id number] | prior to procedure | | | [...] + + | MEDICARE | MEDICA | [id number] | Medica | [phone] | | | RE | | re | [phone] | | | | PART A | | | | | | | AND B | | | | | + +--------+ +--------+ + + | MODA | MODA | [id number] | Indemn | [phone] | [address] [address] | | | HEALTH | | ity | [phone] | [place] [address] | | | MDCR | | | [...] | [phone] | [phone] | [place] [address] | | | [place] | | | [phone] Home: | | | | | | | | | | | | | | +- | | | | | | | [phone] | | + +--------+ +--------+ + +
[~2018-04-23 13:55] MED LIST changes: +DITROPAN XL10 MG PO; +LEVOTHYROXINE112 MCG PO
--- NOTE | 2018-04-23 16:01 | NUR ---
PT REPORTING "PRETTY BAD PAIN." MEDICATED WITH 5MG OXY. PT SHOWING SIGNS OF CONFUSION THIS AFTERNOON. NEEDS REORIENTATION TO WHERE SHE IS. HAS VISITOR AT BEDSIDE AT THIS TIME. CALL LIGHT WITHIN REACH.
--- NOTE | 2018-04-23 17:20 | NUR ---
PT SITTING UP IN BED EATING DINNER. REPORTS PAIN DOWN TO 4/10. DENIES NEEDS OR CONCERNS AT THIS TIME. PT ALERT AND ORIENTED AT THIS TIME. CALL LIGHT WITHIN REACH.
--- NOTE | 2018-04-23 18:53 | NUR ---
PT RESTING IN BED WATCHING TV. LEFT HAND ELEVATED ON PILLOW. CALL LIGHT WITHIN REACH.
--- NOTE | 2018-04-23 19:19 | NUR ---
RECEIVED REPORT FROM HERBERTH FRYE. PT AWAKE, LAYING IN BED. IV SALINE LOCKED. HOB ELEVATED. PT REPORTS PAIN 03/09, PT GIVEN NEW ICE PACKS, APPLIED TO LEFT SHOULDER. SLING ON LEFT ARM. CALL LIGHT IN REACH, BED ALARM ON.
--- NOTE | 2018-04-23 20:03 | NUR ---
RESPONDED TO CALL LIGHT, PT IN RESTROOM, C.O. N/V AND "BEING SICK". SUBLINGUAL ZOFRAN WASTED PT WAS VOMITTING, IV ZOFRAN ADMINISTERED. PT REMAINS IN RESTROOM, PT EDUCATED TO PULL CALL LIGHT WHEN FINISHED. PT VERBALIZED UNDERSTANDING.
--- NOTE | 2018-04-23 20:13 | NUR ---
RESPONDED TO CALL LIGHT. PT BACK IN BED. WARM BLANKETS GIVEN PER PT REQUEST. ICE APPLIED TO SHOULDER. SLING ON SHOULDER. CALL LIGHT IN REACH, BED ALARM ON.
--- NOTE | 2018-04-23 21:56 | NUR ---
ASSESSMENT COMPLETE. SENSATION INTACT IN LEFT ARM/HAND. LEFT ARM IN SLING WITH ICE APPLIED TO SHOULDER. PT REPORTS PAIN 10/10 IN ABD AND "SOME PAIN" IN LEFT SHOULDER, PRN PAIN MEDICATIONS ADMINISTERED. BOWEL TONES ACTIVE, PT STATES STOMACH FEELS "CRAMPY". BED ALARM ON. CALL LIGHT NEXT TO PT.
--- NOTE | 2018-04-23 22:53 | NUR ---
PATIENT CALLED TO USE THE BATHROOM. CHANGED GOWN AND BED LINEN SOILED WITH BOWEL MOVEMENT. PATIENT HAD AN EXTRA LARGE SOFT/WATERY BOWEL MOVEMENT. PATIENT IS BACK IN BED. BED ALARM ON.
--- NOTE | 2018-04-23 23:27 | NUR ---
IN ROOM TO CHECK ON PT. PT LAYING IN BED AWAKE WATCHING TV. PT STATES ABD PAIN IS RELIEVED FROM BM, SHOULDER PAIN / BUT DENIES NEED FOR PAIN MEDICATION AT THIS TIME. ICE AND SLING ON LEFT SHOULDER, CALL LIGHT NEXT TO PT, BED ALARM ON.
--- NOTE | 2018-04-24 01:57 | NUR ---
IN ROOM TO CHECK ON PT. PT APPEARS TO BE SLEEPING, EYES CLOSED. BREATHING EVEN AND UNLABORED. ICE AND SLING ON LEFT SHOULDER. CALL LIGHT NEXT TO PT, BED ALARM ON.
--- NOTE | 2018-04-24 03:33 | NUR ---
IN ROOM TO CHECK ON PT. PT APPEARS TO BE SLEEPING, EYES CLOSED, BREATHING UNLABORED. ICE AND SLING TO LEFT SHOULDER. CALL LIGHT IN REACH.
--- NOTE | 2018-04-24 04:06 | NUR ---
RESPONDED TO BED ALARM. PT BM IN ATTENDS. UP TO RESTROOM, SBA, VERY LOOSE STOOL. ATTENDS AND GOWN CHANGED. PT RETURNED TO BED WITH SBA. NEW ICE APPLIED TO LEFT SHOULDER. SLING IN PLACE. BED ALARM ON. CALL LIGHT NEXT TO PT.
--- NOTE | 2018-04-24 05:33 | NUR ---
PT ALERT AND ORIENTED X4, FORGETFUL AT TIMES. IV SALINE LOCKED. PT HAD MULTIPLE LOOSE BOWEL MOVEMENTS THROUGHOUT SHIFT. SENSATION INTACT IN LEFT ARM/HAND. RADIAL PULSE STRONG. ICE AND SLING APPLIED TO LEFT SHOULDER THROUGHOUT SHIFT. PRN PAIN MEDICATION ADMINISTERED X1. N/V AT BEGINNING OF SHIFT, NAUSEA MEDICATION ADMINISTERED. IMPULSIVE, DOES NOT USE CALL LIGHT APPROPRIATELY, BED ALARM ON.
--- NOTE | 2018-04-24 06:20 | NUR ---
IN ROOM TO ADMINISTER MORNING MEDICAITONS. PT SLEEPING WHEN ENTERING ROOM, AWAKENS EASILY. MEDICATION ADMINISTERED. PT DENIES PAIN AT THIS TIME. CALL LIGHT IN REACH, BED ALARM ON.
--- NOTE | 2018-04-24 07:10 | NUR ---
BEDSIDE HANDOFF REPORT RECEIVED FROM LABEL STITCHER RN. PT SLEEPING, LEFT UNDISTURBED.
--- NOTE | 2018-04-24 09:04 | NUR ---
MED REC COMPLETE WHEN PATIENT WAS IN-PATIENT STATUS
--- NOTE | 2018-04-24 09:46 | NUR ---
PATIENT UP TO BATHROOM AND BACK TO BED, SBA. PATIENT WZSHED HANDS AND BRUSHED TEETH AT SINK. FRESHWTAER GIVEN. CALL LIGHT IN REACH. NO FURTHER NEEDS AT THIS TIME.
--- NOTE | 2018-04-24 10:00 | NUR ---
PT RESTING IN BED. PT INTITIALLY STATES PAIN 0/10, UPON FURTHER EVALUATION PT STATES PAIN 5/10 TO LEFT SHOULDER, GIVEN 5 MG OXYCODONE, ICE PACKS IN PLACE TO SHOULDER. PT ON ROOM AIR, LUNG SOUNDS CLEAR. PT DENIES NAUSEA, BOWEL TONES ACTIVE, TOLERATING REGULAR DIET. PT WITH LEFT ARM IN SLING, SWELLING FROM LEFT SHOULDER TO HAND, PULSE PALPABLE, FULL SENSATION WEAK INDEX CLERK. PT WIHTOUT EDEMA IN OTHER EXTREMITIES. PT ASKING ABOUT EXPECTATIONS WHILE ON SWING BED, DISCUSSED. PT ALSO INQUIRING ABOUT RESOURCES FOR DISCHARGE, WILL DISCUSS WITH BROADCAST CORRESPONDENT. PT DENIES OTHER NEEDS AT THIS TIME.
--- NOTE | 2018-04-24 12:11 | NUR ---
PATIENT UP TO SHOWER AND BACK TO RICARDO LING WITH CANE. PATIENT MOSTLY INDEPENDENT IN SHOWER. NEW GOWN PROVIDED. LINENS CHANGED. CALL LIGHT IN REACH. NO FURTHER NEEDS AT THIS TIME.
--- NOTE | 2018-04-24 12:15 | NUR ---
PT STATES OXYCODONE WAS HELPFUL WITH PAIN BUT STATES PAIN IS CLIMBING BECAUSE SHE HAS BEEN UP AND MOVING. PT CURRENTLY SITTING IN CHAIR. PT DENIES NEEDS AT THIS TIME.
--- NOTE | 2018-04-24 13:07 | NUR ---
CALL LIGHT ON. PATIENT REQUESTED LUNCH, THIS RN CALLED THE KITCHEN AND THEY BROUGHT A TRAY. AMBULATED X1 LAP AROUND UNIT. USED GAIT BELT AND CANE. PATIENT IN CHAIR, FEET ELEVATED, EATING LUNCH. CALL LIGHT WITHIN REACH. NO FURTHER REQUESTS.
--- NOTE | 2018-04-24 13:27 | NUR ---
PATIENT SITTING IN CHAIR EATING LUNCH. FRESHWATER GIVEN. CALL LIGHT IN REACH. NO FURTHER NEEDS AT THIS TIME.
--- NOTE | 2018-04-24 14:35 | NUR ---
PT SITTING IN CHAIR, BIG SMILE AND TOLD ME SHE IS DOING BETTER WITH A BIG SMILE. SHE SEEMS TO HAVE QUITE A BIT OF COMPANY. THANKED ME FOR STOPPING BY, WILL FOLLOW NEEDED
--- NOTE | 2018-04-24 15:12 | NUR ---
1510-PT MEDICATED WITH 5MG OXYCODONE PO FOR C/O PAIN 03/09 LEFT SHOULDER
--- NOTE | 2018-04-24 18:09 | NUR ---
PT HAD UNEVENTFUL DAY. PT UP WITH SBA WITH SHAMAR, WORKING WITH PT/OT. PT WITH INCREASED PAIN TODAY, OXYCODONE GIVEN X2, TYLENOL X1, ICE PACKS IN PLACE TO LEFT SHOULDER. PT CONTINUED TO HAVE LOOSE STOOL TODAY, BOWEL MEDS HELD. PT ON ROOM AIR, LUNG SOUNDS CLEAR. PALN FOR SURGERY ON MONDAY. PT VOIDING QS.
--- NOTE | 2018-04-24 18:32 | NUR ---
PATIENT IN BED EATING DINNER. FRESHWATER GIVEN. CALL LIGHT IN REACH. NO FURTHER NEEDS AT THIS TIME.
--- NOTE | 2018-04-24 19:12 | NUR ---
RECIEVED REPORT FROM HERBERTH LEZAMA. PT LAYING IN BED, AWAKE, HOB ELEVATED. PAIN 9/10 IN LEFT SHOULDER. HERBERTH LEZAMA ADMINISTERED PRN PAIN MEDICATION. NEW ICE PACKS APPLIED TO SHOULDER, SLING IN PLACE. BOWEL PREP HELD TODAY DUE TO MULTIPLE LOOSE STOOLS. BED ALARM ON, CALL LIGHT NEXT TO PT.
--- NOTE | 2018-04-24 21:40 | NUR ---
RESPONDED TO BED ALARM, PT OUT OF BED TO VOID, SHOULDER SLING UNDONE, RN REAPPLIED AROUND NECK. PT ALERT AND ORIENTED X 4. SBA BACK TO BED, BED ALARM ON. PT REQUESTING PRN MEDICATIONS FOR PAIN. ICE PACKS IN PLACE. CALL LIGHT IN REACH.
--- NOTE | 2018-04-24 21:58 | NUR ---
ASSESSMENT COMPLETE. PT REPORTS PAIN 8/10 IN LEFT SHOULDER, PRN PAIN MEDICATION ADMINISTERED. ICE APPLIED TO LEFT SHOULDER, SLING IN PLACE, PILLOW SUPPORTING SHOULDER. PT REPORTS CMS INTACT IN LEFT HAND AND SHOULDER. RADIAL PULSE STRONG. GENERALIZED SWELLING THROUGHOUT LEFT ARM AND HAND. BED ALARM ON, CALL LIGHT IN REACH. PT EDUCATED TO USE CALL LIGHT WHEN NEEDING TO USE RESTROOM. PT VERBALIZED UNDERSTANDING.
--- NOTE | 2018-04-24 22:59 | NUR ---
CALL LIGHT ANSWERED, PT C/O 04/09 PAIN IN LEFT SHOULDER, PRN PAIN MEDICATION ADMINISTERED. ICE PACKS IN PLACE, SLING IN PLACE. CALL LIGHT NEXT TO PT, BED ALARM ON. PT DENIES TOILETING NEEDS.
--- NOTE | 2018-04-24 23:10 | NUR ---
RESPONDED TO CALL LIGHT. PT C.O. BACK PAIN. PILLOW AND ICE PLACED UNDER BACK AND SHOULDER. BED ALARM FLOOR NURSE LIGHT NEXT TO PT.
--- NOTE | 2018-04-25 00:48 | NUR ---
IN ROOM TO CHECK ON PT. PT APPEARS TO BE SLEEPING, EYES CLOSED, UNLABORED BREATHING. ICE AND SLING ON LEFT SHOULDER. CALL LIGHT NEXT TO PT.
--- NOTE | 2018-04-25 01:28 | NUR ---
IN ROOM TO ASSESS PTS PAIN. PT APPEARS TO BE SLEEPING, EYES CLOSED, UNLABORED BREATHING. CALL LIGHT NEXT TO PT. ICE AND SLING TO LEFT ARM. BED ALARM ON.
--- NOTE | 2018-04-25 02:42 | NUR ---
IN ROOM TO CHECK ON PT. PT APPEARS TO BE SLEEPING, EYES CLOSED, UNLABORED BREATHING. ICE AND SLING TO LEFT SHOULDER. CALL LIGHT NEXT TO PT, BED ALARM ON.
--- NOTE | 2018-04-25 03:18 | NUR ---
RESPONDED TO CALL LIGHT. PT REQUESTED TO USE RESTROOM. SBA TO RESTROOM TO VOID. RETURNED TO BED. NEW ICE APPLIED TO SHOULDER, SLING IN PLACE. CALL LIGHT IN REACH, BED ALARM ON.
--- NOTE | 2018-04-25 04:58 | NUR ---
PT SLEPT THROUGHOUT SHIFT. SBA AND CANE WITH AMBULATION. PRN PAIN MEDICATIONS ADMINISTERED, PAIN WELL CONTROLLED. ICE AND SLING ON LEFT ARM. SENSATION INTACT, GENERALIZED EDEMA IN LEFT HAND AND ARM. ALERT AND ORIENTED X4 THROUGHOUT SHIFT. BED ALARM ON THROUGHOUT SHIFT.
--- NOTE | 2018-04-25 05:56 | NUR ---
IN ROOM TO ADMINISTER AM MEDICATIONS. PT SLEEPING, AWAKENS EASILY. MEDICATION ADMINISTERED. ICE APPLIED TO LEFT SHOULDER, SLING IN PLACE. BED ALARM ON, CALL LIGHT IN REACH. FRESH ICE WATER GIVEN.
--- NOTE | 2018-04-25 09:10 | NUR ---
PT AWAKE, ALERT AND ORIENTED THIS AM. REPORTING ONLY "A LITTLE BIT" OF PAIN IN LEFT ARM THIS AM. DENIED NEED FOR PAIN MEDICATION AT THIS TIME. ASSISTED TO BATHROOM AND SHOWERED WITH HELP FORM O.T. SWELLING OF LEFT HAND APPEARS IMPROVED PT ENCOURAGE TO KEEP HAND ELEVATED WHILE AT REST.
--- NOTE | 2018-04-25 09:52 | NUR ---
pt medicated with 5mg po oxy for reports of 8/10 left shoulder pain after working with o.t. and showering. pt sitting in bed watching tv, eating cream of wheat. call light within reach.
--- NOTE | 2018-04-25 11:39 | NUR ---
PATIENT WAS IN BED RESTING, LATER BREAKFAST WAS BROUGHT IN , FACE WASHED, OT CAME IN AND DID HER SHOWER, BED CHANGED. WARM BLANKET WAS GIVEN, FRESH WATER, CALL LIGHT IN REACH. NO OTHER NEEDS AT THIS TIME.
--- NOTE | 2018-04-25 13:03 | NUR ---
PT RESTING IN BED, EYES CLOSED, RESP EVEN AND UNLABORED. FINISHED LUNCH TRAY AT BEDSIDE, REMOVED AT THIS TIME. CALL LIGHT WITHIN REACH.
--- NOTE | 2018-04-25 13:42 | NUR ---
PATIENT UP WALKING WITH PT. FRESHWATER GIVEN. NO FURTHER NEEDS AT THIS TIME.
--- NOTE | 2018-04-25 15:10 | NUR ---
PT SITTING UP IN CHAIR WATCHING TV. DENIES NEEDS OR CONCERNS AT THIS TIME. CALL LIGHT WITHIN REACH.
--- NOTE | 2018-04-25 18:31 | NUR ---
PT SITTING IN BED WATCHING TV. ATE ALL OF DINNER. DENIES NEEDS OR CONCERNS AT THIS TIME. CALL LIGHT WITHIN REACH
--- NOTE | 2018-04-25 19:35 | NUR ---
REPORT RECIEVED. PT IN BED WATCHING TELEVISION. PT DENIES ANY NEEDS AT THIS TIME. CALL LIGHT WITHIN REACH.
--- NOTE | 2018-04-25 20:28 | NUR ---
VITALS AND I&OS DONE AND CHARTED. CHANGED PT'S GOWN AND BED DUE TO THE ICE PACK LEAKING ON HER. NEW ICE PACK GIVEN. BEDSIDE TABLE AND CALL LIGHT IN REACH. FRESH ICE GIVEN FOR WATER CUP.
--- NOTE | 2018-04-25 21:04 | NUR ---
VITALS AND I&OS DONE AND CHARTED. FRESH ICE WATER, CRACKERS AND JELLO GIVEN PER PT REQUEST. BEDSIDE TABLE AND CALL LIGHT IN REACH.
--- NOTE | 2018-04-25 21:22 | NUR ---
IN ROOM TO ADMIN EVENING MEDS. SHIFT ASSESSMENT COMPLETE. PT TOLERATED WELL. PT GIVEN PRN PAIN MEDICATION FOR PAIN OF 7/10 RELATED TO RIGHT SHOULDER. ICE APPLIED TO RIGHT SHOULDER WELL. PT'S LS CLEAR, BT ACTIVE THROUGHOUT, PT STATED SHE HAD A LOOSE BM THIS MORNING. ABD NONTENDER. PT AOX4, APPROPRIATE. SLING IN PLACE ON PT'S RIGHT ARM. PT DENIES ANY NEEDS AT THIS TIME. CALL LIGHT WITHIN REACH. BED ALARM ON. FALL PRECAUTIONS IN PLACE.
--- NOTE | 2018-04-25 23:30 | NUR ---
PT CALLS NURSING STATION SAYING SHE CANT SLEEP. PT LAYING IN BED WATCHING TELEVISION. STATES THAT SHE IS FEELING STRESSED BECAUSE SHE CAN'T SEEM TO FALL ASLEEP. PT OFFERED WARM BLANKET, WARM TEA, SLEEP HYGIENE BAG, PT EDUCATED TO DO DEEP BREATHING EXERCISE TO HELP RELAX. WHEN ASKED WHAT SHE DOES AT HOME PT STATES THAT SHE TAKES MORE OF HER MEDICATION. PT EDUCATED ON PROPER DIAPER MACHINE TENDER. PT DECLINED INTEREST IN ANY OFFERED SLEEP AIDS. PT STATES "I WILL JUST WATCH TV" NO FURTHER REQUESTS AT THIS TIME. CALL LIGHT WITHIN REACH. BED ALARM ON.
--- NOTE | 2018-04-26 00:31 | NUR ---
PT RESTING IN BED. NO NEEDS AT THIS TIME. CALL LIGHT WITHIN REACH.
--- NOTE | 2018-04-26 02:04 | NUR ---
PT RESTING IN BED WATCHING TV. NO NEEDS AT THIS TIME. CALL LIGHT WITHIN REACH. BED ALARM ON.
--- NOTE | 2018-04-26 05:20 | NUR ---
I AND O'S DONE AND CHARTED. HELPED PT TO THE BATHROOM AND BACK TO BED WITH HER CANE. BED ALARM SET. PT NEEDS NOTHING ELSE AT THIS TIME.
--- NOTE | 2018-04-26 06:00 | NUR ---
PT STRUGGLED TO SLEEP THIS SHIFT. WAS OFFERED WARM TEA, WARM BLANKETS, SLEEP HYGIENE KIT ETC. PT REFUSED AND SAID SHE WOULD JUST RATHER WATCH TV. PT RECIEVED PRN PAIN MEDICATION ONCE THIS SHIFT. NO C/O NAUSEA THIS SHIFT. LS CLEAR, PT'S SLING ON LEFT ARM/WRIST INTACT. PT REMAINS ON RA. PT AOX4, FLAT AFFECT. CARDIAC DIET. URINE OUTPUT QS.
--- NOTE | 2018-04-26 07:25 | NUR ---
SHIFT REPORT RECEIVED FROM GRAIN COMMODITY MANAGER RN AT BEDSIDE. PATIENT IS SLEEPING, EYES CLOSED AND RESPIRATIONS ARE EVEN AND UNLABORED. PATIENT IS SALINE LOCKED, BED ALARM IN PLACE. CALL LIGHT WITHIN REACH.
--- NOTE | 2018-04-26 09:30 | NUR ---
MORNING ASSESSMENT AND ROUTINE MEDICATIONS ADMINISTERED. SCHEDULED MIRALAX AND SENNA TABLETS WITHHELD DUE TO PATIENT'S RECENT LOOSE STOOLS. PATIENT IS SALINE LOCKED, IV SITE WNL. PATIENT RATES PAIN 5/10, BUT DENIES PHARMACOLOGICAL INTERVENTION. PATIENT DENIES FURTHER NEEDS AT THIS TIME. CALL LIGHT WITHIN REACH.
--- NOTE | 2018-04-26 10:57 | NUR ---
PATIENT REPORTS INCREASING PAIN IN LEFT SHOULDER. PAIN IS RATED AN 8/10. 5 MG OXYCODONE ADMINISTERED PER REQUEST OF PATIENT. NO OTHER NEEDS AT THIS TIME. CALL LIGHT WITHIN REACH.
--- NOTE | 2018-04-26 13:20 | NUR ---
PATIENT RESTING IN CHAIR WHILE WATCHING TELEVISION. RESPIRATIONS EVEN AND UNLABORED. WARM BLANKET GIVEN TO PATIENT, NO OTHER NEEDS VERBALIZED. CALL LIGHT WITHIN REACH.
--- NOTE | 2018-04-26 14:06 | NUR ---
I WALKED BY PT'S RM JUST SHE MOVED HER CHAIR AND MUST HAVE BOUND HER LEFT SHOULDER SOME WAY AND GRIMACED IN PAIN. I STOPPED AND SHE SAID SHE WAS OK, REALLY. I EXTENDED A BLESSING, WILL FOLLOW NEEDED
--- NOTE | 2018-04-26 14:55 | NUR ---
PATIENT COMPLAINING OF INCREASING PAIN. PATIENT RATES PAIN 7/10, 5 MG OXYCODONE ADMINISTERED. PATIENT UP TO BATHROOM TO VOID. PATIENT IS STANDBY ASIST WITH USE OF CANE. PATIENT BACK TO CHAIR, DENIES FURTHER NEEDS AT THIS TIME. CALL LIGHT WITHIN REACH.
--- NOTE | 2018-04-26 16:10 | NUR ---
PATIENT RESTING IN CHAIR, WATCHING TELEVISION. RESPIRATIONS EVEN AND UNLABORD. FRESH WATER PROVIDED, DENIES FURTHER NEEDS. CALL LIGHT WITHIN REACH.
--- NOTE | 2018-04-26 17:35 | NUR ---
SCHEDULED SENNA ADMINISTERED. SCHEDULED MIRALAX HELD DUE TO PATIENT'S RECENT EPISODE OF DIARHEA ON PREVIOUS OBSTETRICS TEACHER. PATIENT FINISHED DINNER AND IS NOW IN [place] WATCHING TELEVISION, NO OTHER NEEDS VERBALIZED. CALL LIGHT WITHIN REACH.
--- NOTE | 2018-04-26 18:38 | NUR ---
PATIENT ON ROOM AIR, VSS. PATIENT ON CARDIAC DIET, APPETITIE STABLE. PATIENT IS A ONE PERSON SBA WITH USE OF CANE, PT HAS BEEN WORKING WITH PHYSICAL THERAPY. LEFT SHOULDER SLING IN PLACE, PO PAIN MEDS PRN. PATIENT HAS BEEN COMPLIANT WITH CARE AND HAD UNEVENTFUL DAY OVERALL.
--- NOTE | 2018-04-26 20:45 | NUR ---
IN ROOM TO ADMIN EVENING MEDS. SHIFT ASSESSMENT COMPLETE. PT AOX4, PLEASANT. PT'S LS CLEAR, BT ACTIVE, DENIES BM TODAY. ABD NON TENDER. PULSES IN LEFT ARM FAINT. SWELLING NOTED, CAP REFILL WNL, CMS INTACT. ARM SORE/WEAK. PT DENIES SIGNIFICANT PAIN AT THIS TIME STATES SHE JUST WANTS TO GET SOME SLEEP TONIGHT. HYDRATION AT BEDSIDE. DENIES NEEDS AT THIS TIME. CALL LIGHT WITHIN REACH.
--- NOTE | 2018-04-26 20:57 | NUR ---
VITALS DONE AND CHARTED. PT NEEDS NOTHING AT THIS TIME, CALL LIGHT IN REACH.
--- NOTE | 2018-04-26 22:39 | NUR ---
CHARGE NURSE ROUNDING NOTE:, PT AWAKE, VISITING WITH FAMILY, NO REQUESTS, CALL LIGHT AND FLUIDS WITHING HANDS REACHN, ARM BRACE L ARM IN PLACE
--- NOTE | 2018-04-26 23:25 | NUR ---
PT SOUND ASLEEP. NO NEEDS AT THIS TIME. CALL LIGHT WITHIN REACH.
--- NOTE | 2018-04-27 01:57 | NUR ---
HELPED PT TO THE BATHROOM AND BACK TO BED AFTER HER BED ALARM WENT OFF. SET BED ALARM AGAIN. BEDSIDE TABLE AND CALL LIGHT IN REACH.
--- NOTE | 2018-04-27 03:11 | NUR ---
PT SOUND ASLEEP. CALL LIGHT WITHIN REACH. NO NEEDS AT THIS TIME.
--- NOTE | 2018-04-27 05:31 | NUR ---
PT SLEPT THROUGHOUT ENTIRE SHIFT. AOX4, NO C/O PAIN OR N/V THIS SHIFT. PT DID GET UP ONCE WITHOUT USING CALL LIGHT TO USE BATHROOM. BED ALARM ON. URINE OUTPUT QS. SLING ON LEFT ARM REMAINS IN PLACE, SWELLING NOTED IN LEFT ARM/HAND, CAP REFILL WNL. CMS INTACT. VSS THIS SHIFT.
--- NOTE | 2018-04-27 05:36 | NUR ---
I&OS DONE AND CHARTED. PT WAS SLEEPING WHEN I LEFT THE ROOM.
--- NOTE | 2018-04-27 06:15 | NUR ---
TWO FRESH ICE PACKS GIVEN FOR HER ARM. PT APPEARS TO BE SLEEPING.
--- NOTE | 2018-04-27 07:10 | NUR ---
SHIFT REPORT RECEIVED FROM BOILER HOUSE MECHANIC RN AT BEDSIDE. PATIENT IS SALINE LOCKED AND ON ROOM AIR. PATIENT RESTING IN BED, RESPIRATIONS EVEN AND UNLABORED. PATIENT DENIES NEEDS AT THIS TIME. CALL LIGHT WITHIN REACH.
--- NOTE | 2018-04-27 08:09 | NUR ---
ASKED PATIENT IF SHE WOULD LIKE TO ORDER BREAKFAST AND SHE NO. PATIENT IS NOW SLEEPING.
--- NOTE | 2018-04-27 09:14 | NUR ---
PT SBA TO RESTROOM WITH CANE, GAIT STEADY. PT ASSISTED BACK TO BED. ICE APPLIED TO LEFT SHOULDER, BED ALARM ON, CALLLIGHT WITHIN REACH.
--- NOTE | 2018-04-27 09:20 | NUR ---
MORNING ASSESSMENT AND ROUTINE MEDICATIONS ADMINISTERD. PATIENT REFUSED MIRALAX, BUT ACCEPTED THE TWO SCHEDULED SENNA TABLETS. LEFT SHOULDER SWOLLEN, SLING AND ICE IN PLACE. BED ALARM ON, CALL LIGHT WITHIN REACH.
--- NOTE | 2018-04-27 09:50 | NUR ---
PATEINT COMPLAINING OF INCREASING PAIN. PATIENT RATES PAIN 7/10, 5 MG OXYCODONE ADMINISTERED. ICE REMAINS IN PLACE. PATIENT DENIES FURTHER NEEDS AT THIS TIME, CALL LIGHT WITHIN REACH. BED ALARM ON.
--- NOTE | 2018-04-27 12:25 | NUR ---
ENTERED PT'S RM, SHE WAS LAYING IN BED-ALERT AND MOSTLY ORIENTED. INFORMED HER THAT SABRINARA FRIAS WAS COMING IN TO VISIT WITH HER ABOUT HER SURGERY ON MONDAY. SHE GOT A LITTLE EMOTIONAL, CARED FOR HER FOR A MOMENT AND EXTENDED A BLESSING. WILL FOLLOW NEEDED
--- NOTE | 2018-04-27 16:05 | NUR ---
PATIENT REFUSED X3 TO TAKE A SHOWER.
--- NOTE | 2018-04-27 16:59 | NUR ---
Patient complaining of increasing pain. Pain rated 8/10. 5 mg oxycodone and 500 mg prn tylenol administered. New ice pack placed on left shoulder. Call light within reach.
--- NOTE | 2018-04-27 18:31 | NUR ---
PATIENT A/O X3, ON ROOM AIR, VSS. PATIENT TAKING PO OXYCODONE AND TYLENOL FOR PAIN CONTROL. LEFT SHOULDER SLING IN PLACE. ICE PRN. PATIENT IS 1PSBA WITH USE OF CANE. PATIENT ON CARDIAC DIET, VOIDING QS.
--- NOTE | 2018-04-27 19:10 | NUR ---
BEDSIDE REPORT RECEIVED FROM OFFGOING RN'S. PT BEGINS TO REPORT NAUSEA, EMESIS BAG PROVIDED. PT STATES THAT IT HAS PASSED, MAYBE LINGERING SLIGHTLY. PT AGREES TO TAKE PRN NAUSEA MEDICATION, TO BE ADIMINISTERED PT DENIES OTHER NEEDS AT THIS TIME. CALL LIGHT WITHIN REACH. BED ALARM ACTIVE.
--- NOTE | 2018-04-27 20:09 | NUR ---
PT RESTING IN BED. REPORTS THAT NAUSEA STILL LINGERING PRN ZOFRAN ADMINISTERED WITH SCHEDULED MEDICATIONS. PT DENIES PAIN OR SOB AT THIS TIME. PT ASSESSMENT COMPLETE. SLING IN PLACE TO L ARM. EDEMA NOTED TO L UPPER EXTREMITY. CMS INTACT. ICE IN PLACE TO L ARM. PT RESTING WITH L ARM AND HAND ELEVATED. PT DENIES OTHER NEEDS AT THIS TIME. PERSONAL ITEMS ARE WITHIN REACH. CALL LIGHT WITHIN REACH. BED ALARM REMAINS ACTIVE. PT AGREES TO USE CALL LIGHT FOR NEEDS.
--- NOTE | 2018-04-27 21:22 | NUR ---
CHARGE NURSE ROUNDING NOTE: PT SPILLED CONTENTS OF ICE PACK IN BED. BED LINEN CHANGED, UP TO BRP, VOIDED, BACK TO BED. LEFT ARM BRACE IN PLACE CALL LIGHT AND FLUIDS AT BEDSIDE, BED ALRM ON
--- NOTE | 2018-04-27 22:04 | NUR ---
VITALS AND I&OS DONE AND CHARTED. BEDSIDE TABLE AND CALL LIGHT IN REACH. PT NEEDS NOTHING AT THIS TIME.
--- NOTE | 2018-04-27 23:10 | NUR ---
PT REQUESTS PRN PAIN MEDICATION, RATES PAIN 9/10 TO L SHOULDER. PT DENIES OTHER NEEDS AT THIS TIME. DECLINES ICE TO L SHOULDER. CALL LIGHT WITHIN PT REACH.
--- NOTE | 2018-04-28 01:43 | NUR ---
PT RESTING IN BED WITH EYES OPEN. PT STATES THAT PAIN CONTINUES, REPORTS THAT IT HAS GOTTEN "A LITTLE" BETTER. PT DECLINES ICE TO THE SITE. PT ASKS IF SHE CAN HAVE HER "SEROTONIN", CLARIFIED THAT PT HAS ALREADY HAD HER MELATONIN FOR THE EVENING. MEDICATION REGIMEN DISUCCSED WITH PT. PT STATES UNDERSTANDING. DENIES FURTHER NEEDS AT THIS TIME. CALL LIGHT WITHIN REACH.
--- NOTE | 2018-04-28 05:27 | NUR ---
PT SLEPT OFF AND ON THROUGHOUT THE NIGHT. OXYCODONE AND TYLENOL X 1 FOR PAIN. PT DECLINES ICE TO SHOULDER. SLING REMAINS IN PLACE, ARM ELEVATED PT WILL ALLOW. 0 IV ACCESS. SBA WITH CANE TO BATHROOM. UO QS.
--- NOTE | 2018-04-28 06:58 | NUR ---
SHIFT REPORT RECIEVED FROM COOKER CLEANER RN AT BEDSIDE. PATEINT SLEEPING, RESPIRATIONS EVEN AND UNLABORED. PATIENT ON ROOM AIR. CALL LIGHT WITHIN REACH.
--- NOTE | 2018-04-28 08:50 | NUR ---
MORNING ASSESSMENT AND SCHEDULED MEDICATIONS ADMINISTERED. PATIENT ON ROOM AIR. PT RATES PAIN 2/10, BUT DENIES DESIRE FOR PAIN MANAGEMENT. PATEINT TOOK MEDICATIONS WITHOUT CONCERN, PATIENT NOW ATTEMPTING TO RETURN TO SLEEP. BED ALARM ON, CALL LIGHT WITHIN REACH.
--- NOTE | 2018-04-28 10:20 | NUR ---
PATIENT SLEEPING IN BED, RESPIRATIONS EVEN AND UNLABORED. LEFT SHOULDER SLING IN PLACE, BED ALARM ON, AND CALL LIGHT WITHIN REACH.
--- NOTE | 2018-04-28 10:23 | NUR ---
upon entering the room pt was alseep, respirations even. pt awoke for vitals and did not need anything at the moment. pt was offered a shower but refused, will check again. pt did not want anything for breakfast and has not voided yet this morning, nurse aware.
--- NOTE | 2018-04-28 12:50 | NUR ---
PT IN HALLWAY AMBULATING WITH PROTOZOOLOGIST. PT AMBULATING INDEPENDENTLY WIHT USE OF CANE, PROTOZOOLOGIST SBA.
--- NOTE | 2018-04-28 13:08 | NUR ---
PT RATES PAIN 6/10, 5 MG OXYCODONE ADMINISTERD. PT EATING LUNCH, CALL LIGHT WITHIN REACH.
--- NOTE | 2018-04-28 14:33 | NUR ---
pt is sitting up in chair with call light in reach and alarm on. I assisted pt to shower, and DENAE Castro finished helping pt dry off and dry.
--- NOTE | 2018-04-28 15:00 | NUR ---
Pt in chair reading book. Pt rates pain 5/10 and states pain is "tolerable", denies need for additional pain intervention. Call light within reach.
--- NOTE | 2018-04-28 17:24 | NUR ---
PT REPORTED INCREASING PAIN. PT REPORTED PAIN 7/, 5 MG OXYCODONE ADMINISTERED. PT DENIES FURTHER NEEDS AT THIS TIME.
--- NOTE | 2018-04-28 17:48 | NUR ---
PT ON ROOM AIR, VSS. PT IS A SBA AND AMBULATES WITH USE OF CANE. LEFT SHOULDER SLING IN PLACE, ICE PRN. PAIN WELL CONTROLLED WITH PRN PAIN MEDICATIONS. PT ON CARDIAC DIET.
--- NOTE | 2018-04-28 18:24 | NUR ---
pt is sitting up in chair with call light in reach and chair alarm on. pt asked for a warm blanket
--- NOTE | 2018-04-28 19:05 | NUR ---
REPORT RECEIVED FROM OFFGOING RN'S.
--- NOTE | 2018-04-28 22:09 | NUR ---
PT ASSESSMENT COMPLETE. PT RATES PAIN TO L SHOULDER 03/09. PRN OXYCODONE ADMINISTERED, ICE APPLIED TO SITE. SWELLING PRESENT TO LUE. SLING IN PLACE. CMS INTACT. PT HAS QUESTIONS REGARDING PRE OP PROCEDURES. QUESTIONS ANSWERED. PT STATES UNDERSTANDING. PT DENIES FURTHER NEEDS AT THIS TIME. CALL LIGHT WITHIN REACH.
--- NOTE | 2018-04-28 22:57 | NUR ---
CHARGE NURSE ROUNDING NOTE: RESTING WYES CLOSED, SLING LEFT ARM IN PLACE. NO REQUESTS, FLUIDS AND CALL LIHGT AT HANDS REACH, BED ALARM ON
--- NOTE | 2018-04-29 00:26 | NUR ---
PT RESTING IN BED WITH EYES CLOSED. PT SNORING AUDIBLY, RESPIRATIONS ARE EVEN AND UNLABORED. PT APPEARS TO BE SLEEPING. DOES NOT WAKE WHILE MATCHER OPERATOR IN DOORWAY. CALL LIGHT WITHIN PT REACH.
--- NOTE | 2018-04-29 02:15 | NUR ---
PT RESTING IN BED WITH EYES CLOSED. RESPIRATIONS EVEN AND UNLABORED. NO S/SX OF DISTRESS NOTED. PT APPEARS TO BE SLEEPING. CALL LIGHT WITHIN REACH.
--- NOTE | 2018-04-29 04:59 | NUR ---
PT RESTED WELL THIS SHIFT. PAIN X1 AT BEGINNING OF NIGHT. OXYCODONE X 1 FOR PAIN, ICE TO SITE. SLING IN PLACE. 1 PA WITH CANE. UO QS. 0 IV ACCESS. SURGERY SCHEDULED FOR MONDAY, TO BE 3RD CASE. IV TO BE RESTARTED SUNDAY 04/29 PRIOR TO SURGERY. PT TO BECOME NPO @ MIDNIGHT.
--- NOTE | 2018-04-29 07:44 | NUR ---
PATIENT RESTING IN BED, EYES CLOSED. CALL LIGHT IN REACH. THIS STAFF OCCUPATIONAL THERAPIST SET UP AM CARE FOR PATIENT TO USE AT A LATER TIME. NO OTHER NEEDS AT THIS TIME.
--- NOTE | 2018-04-29 09:45 | NUR ---
PT SITTING UP IN BED, SYSTEM SAFETY ENGINEER GETTING PT VITAL SIGNS. PT REQUESTING PAIN MEDICATION FOR 8/10 LEFT ARM PAIN. MEDICATED WITH PRN OXY. REFUSED BREAKFAST AT THIS TIME STATES "I DONT NORMALLY EAT BREAKFAST." ALERT AND ORIENTED THIS AM. CALL LIGHT WITHIN REACH.
--- NOTE | 2018-04-29 13:30 | NUR ---
PT TIMOTHY RIVAS INDEPNDENTLY WITH AMANDA IBANEZ WELL.
--- NOTE | 2018-04-29 14:43 | NUR ---
patient went on a walk, she did well, she needed no other assistance at this time
--- NOTE | 2018-04-29 17:41 | NUR ---
NEW IV 20G STARTED IN RIGHT ARM BY JUANY Campos RN. PT SITTING IN BED AT THIS TIME WATCHING TV. EATING DINNER. DENIES NEEDS OR CONCERNS AT THIS TIME. CALL LIGHT WITHIN REACH.
--- NOTE | 2018-04-29 19:10 | NUR ---
BEDSIDE REPORT RECEIVED FROM OFFGOING HERBERTH FRYE. PT RESTING IN BED WITH EYES OPEN, VISITORS AT BEDSIDE. CALL LIGHT WITHIN REACH.
--- NOTE | 2018-04-29 21:10 | NUR ---
PT ASSESSMENT COMPLETE. PT RATES PAIN 9/10 TO L SHOULDER. ICE APPLIED TO SITE, PT REPOSITIONED. EDUCATION PROVIDED REGARDING TIMING OF PAIN MEDICATION. PT STATES UNDERSTANDING. PT REPORTS NAUSEA, NO EMESIS. PRN ZOFRAN ADMINISTERED. PT DENIES SOB. EDEMA AND BRUISING TO LUE. SLING IN PLACE. CMS INTACT. PT DENIES FURTHER NEEDS AT THIS TIME. AGREES TO USE CALL LIGHT FOR NEEDS, WITHIN REACH.
--- NOTE | 2018-04-29 22:25 | NUR ---
PT CONTINUES TO RATE PAIN 9/10 TO L SHOULDER. PRN OXYCODONE ADMINISTERED. PT DENIES OTHER NEEDS AT THIS TIME. CALL LIGHT WITHIN REACH.
--- NOTE | 2018-04-30 00:05 | NUR ---
PT MADE NPO AT MIDNIGHT, WATER REMOVED FROM BEDSIDE AND EMPTIED. PT'S CAKE THAT FRIENDS BROUGHT REMOVED FROM BEDSIDE AND PLACED BY THE SINK. PT DOES NOT WAKE WHILE OFFICE LEAD IN ROOM. RESPIRATIONS EVEN AND UNLABORED. PT APPEARS TO BE SLEEPING. CALL LIGHT WITHIN REACH.
--- NOTE | 2018-04-30 03:01 | NUR ---
PT UP TO USE THE BATHROOM. PT INCONTINENT OF URINE. SOCKS CHANGED. PT ASSISTED TO GET COMFORTABLE IN BED, PT DENIES FURTHER NEEDS. CALL LIGHT WITHIN REACH.
--- NOTE | 2018-04-30 05:30 | NUR ---
PT SLEPT WELL MOST OF SHIFT. PAIN TO L SHOULDER EARLY IN THE NIGHT. PRN OXYCODONE X 1. ICE TO L SHOULDER AND SLING IN PLACE. PT SLEEPING ON R SIDE, LUE ELAVATED. NPO SINCE MIDNIGHT. D51/2NS +20k @ 100. 1 PA WITH CANE. PT TO BE 3RD SURGICAL CASE @ 1030. CONSENT ON CHART, LR WITH STRAIGHT TUBING HUNG. ANCEF TO BE ONCALL TO OR.
--- NOTE | 2018-04-30 06:33 | NUR ---
PRESURGERY WIPE DOWN COMPLETED. PT WANTS HER FRIEND MRS MANRIQUEZ TO BE INFORMED NEEDED. WARM BLANKETS PROVIDED, WELL FRESH ICE TO THE LEFT SHOULDER. CALL LIGHT WITHIN REACH.
--- NOTE | 2018-04-30 06:43 | NUR ---
MD TO ROOM TO MEET WITH PT. PT DENIES FURTHER QUESTIONS OR NEEDS AT THIS TIME. CALL LIGHT WITHIN REACH.
--- NOTE | 2018-04-30 08:00 | NUR ---
PT SLEEPING SOUNDLY IN BED. AWOKE EASILY TO VOICE. PT DENIES PAIN OR OTHER CONCERNS THIS AM. READY FOR SURGERY. CALL LIGHT WITHIN REACH.
--- NOTE | 2018-04-30 09:10 | NUR ---
PT TRANSPORTED TO DAY SURGERY VIA BED.
--- NOTE | 2018-04-30 14:09 | NUR ---
PT ARRIVED TO UNIT FROM PACU. PT DROWSY, ORIENTED TO SELF, SITUATION, AND "HOSPITAL". UNSURE OF DATE. PT DENIES PAIN OR NAUSEA. BOYD DRESSING IN PLACE WITH SCANT AMOUNT OF SHADOWING NOTED, DRESSING INTACT. LEFT UPPER EXTREMITIY WARM CAP REFILL 3, PT REPORTS POSITIVE SENSATION AND MOVEMENT. CRYO CUFF IN PLACE TO LEFT SHOULDER. PT SATTING 98% ON 2L NC. SCD'S AND TEDS ON. CALL LIGHT WITHIN REACH.
--- NOTE | 2018-04-30 15:20 | NUR ---
PT RESTING IN BED. REMAINS VERY DROWSY BUT AWAKES EASILY. PT SEEMS BRIEFLY CONFUSED WHEN AWAKE ASKING "WHAT DID THEY DO TO MY ARM?" DENIES PAIN OR NAUSEA. CRYOCUFF IN PLACE. DRESSING REMAINS INTACT. CALL LIGHT WITHIN REACH. BED ALARM ON.
--- NOTE | 2018-04-30 16:10 | NUR ---
PATIENT CALLS TO USE THE BATHROOM. BENEFIT DIRECTOR ASKED THE NURSE IF PATIENT NEEDS SOME MEDICINE BEFORE PATIENT GETTING OUT OF BED. RN SAID THE PATIENT CAN GETTING OUT OF BED AND USE THE BASE COMODE. PATIENT GETTING OUT OF BED TWO PERSON ASSISTING TO THE BASE COMODE. PATIENT BACK TO BED. BED ALARM ON. CALL LIGHT WITHIN REACH. NO OTHER NEEDS AT THIS TIME.
--- NOTE | 2018-04-30 18:05 | NUR ---
PT HERE FORLEFT HUMERUS FX AND DECONDITIONING. RECENT FALLS AT HOME. SURGERY TODAY TO REPAIR FX IN LEFT SHOULDER. CRYO CUFF, ASHLEE HOSE, HEEL PROTECTORS AND SLING IN PLACE. PRN OXYCODONE GIVEN X1 THIS SHIFT FOR 8/10 POST SURGICAL PAIN. PT DENIES NAUSEA, TOLERATING REGULAR DIET WELL. PT WEANED TO ROOM AIR, MAINTAINING O2 SATURATIONS ABOVE 92%. BOYD DRESSING IN PLACE. SMALL AMOUNT OF DRAINAGE NOTED THIS SHIFT. DRESSING AND CMS INTACT. PT TO REMAIN SWING BED FOR FURTHER WORK WITH PHYSICAL THERAPY. PT USES CALL LIGHT APPROPRIATLY.
--- NOTE | 2018-04-30 19:25 | NUR ---
BEDSIDE REPORT RECEIVED FROM OFFGOING RN. PT RESTING IN BED VISITING WITH FRIENDS. PT DENIES NEEDS AT THIS TIME. CALL LIGHT WITHIN REACH.
--- NOTE | 2018-04-30 21:41 | NUR ---
HELPED PT TO COMMODE AND BACK TO BED, 2PA WITH WALKER. VS AND I&O COMPLETE. FRESH WATER IS AT BEDSIDE AND PT DENIES FURTHER NEEDS.
--- NOTE | 2018-04-30 21:58 | NUR ---
PT ASSESSMENT COMPLETE. PT REPORTS PAIN 8/10 TO L SHOULDER. PRN OXYCODONE ADMINISTERED. CRYCUFF IN PLACE WITH ICE RECENTLY REPLACED. SLING TO L ARM. CMS INTACT TO LUE. EDEMA PRESENT TO L ARM AND HAND. EXTREMITY ELEVATED. BOYD DRESSING D/I WITH MODERATE AMOUNT OF RED DRAINAGE TO THE BANDAGE. AMOUNT OF DRAINAGE UNCHANGED FROM BEDSIDE REPORT. TEDS, SCD'S, AND HEEL PROTECTORS IN PLACE APPROPRIATELY. IS AT BEDSIDE. PT DENIES NAUSEA OR SOB. CALL LIGHT WITHIN REACH. PT AGREES TO USE FOR NEEDS.
--- NOTE | 2018-05-01 00:25 | NUR ---
PT RESTING IN BED WITH EYES CLOSED. RESPIRATIONS EVEN AND UNLABORED. SAO2 94%. PT APPEARS TO BE SLEEPING. PT DOES NOT WAKE WHILE MUSICAL PERFORMER IN ROOM. CALL LIGHT WITHIN PT REACH.
--- NOTE | 2018-05-01 02:40 | NUR ---
VS AND I&O'S COMPLETE AND ENTERED. NEW ICE IN CRYO CUFF. CALL LIGHT IS WITHIN REACH.
--- NOTE | 2018-05-01 03:00 | NUR ---
PT RESTING IN BED WITH EYES CLOSED. PT WAKES EASILY TO VOICE. PT STATES THAT PAIN IS WELL CONTROLLED AT THIS TIME, DENIES NAUSEA, OR SOB. PT REPORTS THAT SHE CONTINUES TO FEEL SLIGHTLY SHAKEY. GENERALIZED EDEMA CONTINUES TO L ARM AND HAND. CMS INTACT. SLING IN PLACE. CRYO CUFF IN PLACE WITH ICE RECENTLY REFILLED. BOYD DRESSING PRESENT WITH RED DRAINAGE UNCHANGED FROM PREVIOUS ASSESSMENT, SUCTION INTACT. ASHLEE HOSE, SCD'S, AND HEEL PROTECTORS IN PLACE. PT DENIES FURTHER NEEDS AT THIS TIME. CALL LIGHT WITHIN REACH.
--- NOTE | 2018-05-01 04:43 | NUR ---
PT RESTING WELL THIS SHIFT. OXYCODONE X 1 AT BEGINNING OF SHIFT FOR PAIN, NO FURTHER COMPLAINTS. NO REPORTS OF NAUSEA OR SOB. GENERALIZED EDEMA PRESENT TO L ARM AND HAND.BOYD DRESSING WITH RED DRAINAGE PRESENT, AMOUNT UNCHANGED THROUGHOUT SHIFT. SLING AND CRYOCUFF PRESENT TO L ARM/SHOULDER. CMS INTACT TO LUE. 1-2 PA TO BR WITH FWW. IV SL. UO QS. TEDS, SCD'S, HEEL PROTECTORS IN PLACE. IS AT BEDSIDE.
--- NOTE | 2018-05-01 06:27 | NUR ---
VS AND I&OS ENTERED, HELPED PT TO BEDSIDE COMMODE. PT IS BACK IN BED AT THIS TIME. CALL LIGHT IS WITHIN REACH.
--- NOTE | 2018-05-01 06:46 | NUR ---
PT RATING PAIN 9/10 TO L SHOULDER/ARM, REQUESTS PAIN PILL. PRN OXYCODONE ADMINISTERED. PT DENIES NAUSEA AND SOB. CMS INTACT TO LUE. GENERALIZED EDEMA CONTINUES TO THE EXTREMITY. BOYD DRESSING WITH SLIGHTLY MORE RED DRAINAGE THAN BEFORE, SUCTION MAINTANED TO DRESSING. CRYOCUFF IN PLACE WITH PILLOWCASE BETWEEN PT'S SKIN AND DEVICE. ALL OTHER PRECAUTIONS REMAIN IN PLACE ORDERED. PT ORDERS BREAKFAST APPROPRIATELY, DENIES OTHER NEEDS. CALL LIGHT WITHIN REACH.
--- NOTE | 2018-05-01 07:07 | NUR ---
RECEIVED REPORT FROM HERBERTH BURRIS. PT AWAKE IN BED. CRYOCUFF, SLING, BOYD DRESSING IN PLACE ON LEFT SHOULDER. DRESSING WITH DRAINAGE UP TO SUCTION DEVICE. CONTINUOUS PULSE OX- 02 SATURATIONS WNL. IV SALINE LOCKED. PT RECENTLY MEDICATED WITH PRN PAIN MEDICATIONS, PT STATES HER PAIN "IS ABOUT THE SAME AND WAITING FOR MEDICATIONS TO START WORKING". CALL LIGHT NEXT TO PT.
--- NOTE | 2018-05-01 09:00 | NUR ---
ASSESSMENT COMPLETE. PT AWAKE IN BED, C.O. PAIN 01/07. IN ROOM, PT DISCUSSED PAIN MANAGEMENT, NEW ORDERS FOR PRN PAIN MEDICATIONS RECIEVED. IV SALINE LOCKED, FLUSHED WNL. CMS INTACT. GENERALIZED SWELLING IN LEFT UPPER EXTREMITY. CRYOCUFF, SLING, BOYD DRESSING IN PLACE. SANGUINOUS DRAINAGE ON BOYD DRESSING. HEEL PROTECTORS, SCD'S, ASHLEE HOSE IN PLACE. CALL LIGHT NEXT TO PT. ICE WATER GIVEN.
--- NOTE | 2018-05-01 09:02 | OR ---
[facility] [address] [place], [place] [address] Signed DATE OF OPERATION: 04/30/2018 SURGEON: Ester Coley MD PREOPERATIVE DIAGNOSIS: 4-part extremely comminuted left proximal humerus fracture. POSTOPERATIVE DIAGNOSIS: 4-part extremely comminuted left proximal humerus fracture. PROCEDURE PERFORMED: Left shoulder hemiarthroplasty. ASSISTANTS: 1. HARJINDER Chandler. 2. DEONNA Beltran. ANESTHESIA: General. BLOOD LOSS: 300 mL. IMPLANTS: ReUnion stem size #10 with a 40 x 17 head. BRIEF HISTORY: Demetrio is a 68-year-old female, who suffered a ground level fall about 2 weeks ago. She had extensive bleeding because of the Plavix she was on. She also was having significant problems with mentation. She was admitted to the hospitalist and underwent changes or medication placed on swing bed. Once her skin settled down, we felt stable for proceeding with surgery. Risks and benefits were discussed with her and she elected to proceed. DESCRIPTION OF PROCEDURE: Once consent was obtained, she was taken to operating room. After adequate anesthesia, she was placed in a low beach chair position. All downside pressure points well padded. The shoulder was prepped and draped in a standard sterile fashion. Shoulder was approached through a 5-inch incision through standard deltopectoral interval. The cephalic vein was located and mobilized laterally. The deltopectoral interval was Electronically Signed By: ESTER COLEY MD 05/01/18 0902 PATIENT NAME: DEMETRIO GILBERT OPERATIVE REPORT DATE OF : 48 REPORT #: [id number] PHYSICIAN: ESTER COLEY MD PCP: ALLIE FIELDS MD REPORT IS CONFIDENTIAL AND NOT TO BE RELEASED WITHOUT AUTHORIZATION [facility] [address], [place] [address] Signed opened completely. There was extensive soft tissues swelling and scarring. The biceps tendon was then individually found and followed up into the shoulder. The rotator cuff interval was opened. The conjoined tendon was dissected free of surrounding soft tissue and was retracted and protected. The subscapularis was then identified and two labral tapes were placed and it was mobilized, it was completely torn off the lesser tuberosity. The biceps tendon was cut in the shoulder and mobilized. Greater tuberosity was found posteriorly and was brought forward and two labral tapes were placed throughout as was the superior rotator cuff, which was completely torn off the tuberosity. The humeral head was then mobilized and removed from the shoulder. She was taken back table, measured to a 40 x 17. The humeral shaft was then mobilized and cleaned of all debris. It was then reamed up to an 11 trial was placed in position. The height of the humeral head was then adjusted, until it was correct. The trial was then tightened in position. This was placed in about 30 degrees of retroversion. The 40 x 17 head was placed on it and was reduced. The shoulder motion was good with 50% subluxation posteriorly. The trial was removed and the site was marked. The final stem was then selected and opened. The cement was mixed and reached proper consistency, it was placed into the humeral canal using standard finger packing method. This stent was then positioned to same height and retroversion as the prior trial. It was held until the cement hardened. All excess cement removed. Once this was completed, the shoulder was reduced and the tuberosities were then repaired back to the stem. The fracture was well enough, there was no bone left to repair to. The labral tapes were taken through the holes on the backside of the stem and before tightening these down a bone graft from the humeral head was placed underneath both the lesser and greater tuberosities. The sutures were tightened and tied, and a single suture was placed in the rotator cuff interval. The suture tails were cut and the wound was copiously irrigated with antibiotic solution. The deltopectoral was closed using 0 Stratafix subcutaneous tissue with 0 Stratafix, and skin with nieves. The wound was dressed with a oumou dressing. She was awakened and taken to recovery room in satisfactory condition. All sponge, needle, and instrument counts were correct. Ester Coley MD BA/MODL /[id number] cc: Allie Fields MD Electronically Signed By: ESTER COLEY MD 05/01/18901 PATIENT NAME: DEMETRIO GILBERT OPERATIVE REPORT DATE OF : 48 REPORT #: [id number] PHYSICIAN: ESTER OCLEY MD PCP: ALLIE FIELDS MD REPORT IS CONFIDENTIAL AND NOT TO BE RELEASED WITHOUT AUTHORIZATION [address] [address] Signed Copies: ALLIE FIELDS MD ~ Electronically Signed By: ESTER COLEY MD 05/01/18 0902 PATIENT NAME: DEMETRIO GILBERT OPERATIVE REPORT DATE OF : 48 REPORT #: [id number] PHYSICIAN: ESTER COLEY MD PCP: ALLIE FIELDS MD REPORT IS CONFIDENTIAL AND NOT TO BE RELEASED WITHOUT AUTHORIZATION
--- NOTE | 2018-05-01 10:41 | NUR ---
IN ROOM TO ADMINISTER PRN PAIN MEDICATIONS FOR 10/10 PAIN IN LEFT SHOULDER.
--- NOTE | 2018-05-01 11:12 | NUR ---
ANSWERED CALL LIGHT, PT REQUESTS TO USE RESTROOM. SBA WITH FWW TO RESTROOM, VOID X1. RETURNED TO BED. CRYOCUFF, SLING, BOYD DRESSING IN PLACE. SCD'S, ASHLEE HOSE, HEEL PROTECTORS IN PLACE. PT STATES PAIN "IS FEELING BETTER". CALL LIGHT NEXT TO PT.
--- NOTE | 2018-05-01 12:20 | NUR ---
PT IS SITTING UP EATING P.CAKES FOR BREAKFAST. STATED THEY TASTED PRETTY GOOD EVEN THOUGH THEY ARE DIFFERENT THAN SHE NORMALLY EATS. PT MENTIONED THAT SHE IS FEELING MUCH BETTER THAT YESTERDAY-SURGERY DAY. SLEPT WELL, EXTENDED A BLESSING. WILL FOLLOW NEEDED
--- NOTE | 2018-05-01 13:59 | NUR ---
CHECKED BACK WITH PT TO SEE HOW SHE IS DOING. PAIN IS HIGH-10. DID NOT EAT LUNCH, AND REQUESTED I CONTACT HER HODGE FOR HER-WHICH I DID. HE WILL BE BY LATER THIS AFTERNOON. HE EXPRESSED CONCERN REGARDING THE LACK OF A PRESENCE BY HER FAMILY, AND IS CONCERNED ABOUT HER CARE UPON DC. I TOLD HIM I WOULD CHECK WITH HER RN AND . HE THANKED ME, WILL FOLLOW NEEDED
--- NOTE | 2018-05-01 14:15 | NUR ---
PT SITTING IN CHAIR. PT RATING PAIN 4/10 WITH OCCASIONAL SHOOTING PAIN UP TO 8/10. DISCUSSED PAIN MEDICATION WITH PT, 15 MG OXYCODONE MADE PT DIZZY AND DROWSY, PT AGREEABLE TO TRY 10 MG OXY AND TYLENOL, GIVEN. PT VERBALIZED SHE MAY REQUEST ADDITIONAL 5 MG IF PAIN BEGINS TO CLIMB. PT DENIES OTHER NEEDS AT THIS TIME. WILL CONTINUE TO MONITOR CLOSELY.
--- NOTE | 2018-05-01 15:25 | NUR ---
IN ROOM TO ASSESS SHOULDER. SENSATION INTACT. GENERALIZED SWELLING IN LEFT ARM/ SHOULDER. STRONG RADIAL PULSE. PT STATES PAIN IS BETTER CONTROLLED AND HER PAIN IS "DOING BETTER". CRYOCUFF, SLING, BOYD DRESSING IN PLACE. HEEL PROTECTORS, ASHLEE HENRY, SCD'S IN PLACE. NO REQUESTS AT THIS TIME. PT UP IN CHAIR.
--- NOTE | 2018-05-01 17:27 | NUR ---
PT ADMINISTERED PRN PAIN MEDICATIONS MULTIPLE TIMES THROUGHOUT SHIFT. PAIN CONTROLLED WELL AT THIS TIME. SENSATION INTACT IN LEFT SHOULDER/HAND. GENERALIZED EDEMA IN LEFT UPPER EXTREMITY. CRYOCUFF, SLING, AND BOYD DRESSING APPLIED TO LEFT SHOULDER. MODERATE AMOUNT OF SANGUINOUS DRAINAGE ON BOYD DRESSING. CONTINUOUS PULSE OXIMETRY- SATURATIONS WNL. IV SALINE LOCKED. SBA WITH CANE TO RESTROOM. HEEL PROTECTORS, SCD'S, ASHLEE HOSE IN PLACE.
--- NOTE | 2018-05-01 18:05 | NUR ---
PT ATTEMPTING TO GET TO BATHROOM BY HERSELF, REEDUCATED HYDRO TECHNICIAN LIGHT AND TO CALL FOR ASSISTANCE DUE TO FALL RISK AND TETHERED LINES. PT ABLE TO VOID, CONCENTRATED URINE, MISSED HAT, ENCOURAGED TO INCREASE PO INTAKE. PT REQUESTING PAIN MEDICATION. PT RATING PAIN 5/10 TO LEFT SHOULDER, GIVEN 10MG OXYCODONE AND TYLENOL. PT ASKING ABOUT PAIN MANAGEMENT AT HOME, DISCUSSED WHAT TO EXPECT AT DISCHARGE. PT DENIES OTHER NEEDS AT THIS TIME.
--- NOTE | 2018-05-01 19:25 | NUR ---
REPORT RECIEVED. PT RESTING IN BED WATCHING TELEVISION. PT STATES THAT HER PAIN IS 8/10 RIGHT NOW. WILL REFILL CRYOCUFF WITH ICE. NO NEEDS AT THIS TIME. CALL LIGHT WITHIN REACH.
--- NOTE | 2018-05-01 21:27 | NUR ---
HELPED PT TO COMMODE. SHE IS BACK IN BED WITH ICE IN CRYO. VS & I&O'S ARE COMPLETE AT THIS TIME. SHE DENIES FURTHER NEEDS.
--- NOTE | 2018-05-01 21:40 | NUR ---
IN ROOM TO ADMIN EVENING MEDS. SHIFT ASSESSMENT COMPLETE. PT AOX4, APPROPRIATE, POLITE. PT'S SHOULDER DRESSING VISUALIZED. SHADOWING/ SMALL AMOUNT OF DRAINAGE NOTED. BOYD SUCTION RUNNING WNL. PT'S LS CLEAR, BT HYPOACTIVE. PT STATES SHE HAD A BM TODAY. ABD NONTENDER. PT C/O PAIN OF 10/10 RELATED TO LEFT SHOULDER. PT GIVEN PRN PAIN MEDICATION PER EMAR. GENERALIZED EDEMA NOTED IN LEFT WRIST/FOREARM. PULSES STRONG AND EQUAL BILATERALLY. NO EDEMA NOTED IN LE. SLING INTACT ON PT'S LEFT SHOULDER, CRYOCUFF IN PLACE. SCD'S ON W/HEEL PROTECTORS. ASHLEE HOSE ON. BED ALARM ON. CALL LIGHT WITHIN REACH. HYDRATION AT BEDSIDE. IV SL WNL.
--- NOTE | 2018-05-01 23:07 | NUR ---
PT RESTING IN BED WATCHING TV. BED ALARM ON. NO NEEDS AT THIS TIME. CRYO CUFF ON. CALL LIGHT WITHIN REACH. HYDRATION AT BEDSIDE.
--- NOTE | 2018-05-01 23:36 | NUR ---
PT C/O 05/09 PAIN RELATED TO LEFT SHOULDER. PT STATES SHE IS HAVING TROUBLE FALLING ASLEEP DUE TO THE PAIN. PT GIVEN PRN PAIN MEDICATION PER EMAR. ICE REPLACED IN CRYOCUFF. PT EDUCATED ON PAIN MANAGEMENT. NO FURTHER NEEDS AT THIS TIME. CALL LIGHT WITHIN REACH.
--- NOTE | 2018-05-02 01:54 | NUR ---
PT C/O PAIN OF 10 RELATED TO RIGHT SHOULDER. PT GIVEN PRN PAIN MEDICATION PER EMAR. NO FURTHER REQUESTS AT THIS TIME CALL LIGHT WITHIN REACH. CRYOCUFF REMAINS IN PLACE. BED ALARM ON.
--- NOTE | 2018-05-02 04:07 | NUR ---
PT SLEEPING, O2 SAT 97%, BREATHS EVEN, UNLABORED. NO REQUESTS AT THIS TIME. CALL LIGHT WITHIN REACH. BED ALARM ON.
--- NOTE | 2018-05-02 04:45 | NUR ---
CALL LIGHT ANSWERED, SBA TO RESTROOM FOR VOID AND LIQUID BM X 1. PT ASSISTED BACK TO BED, CRYO CUFF REFILLED WITH ICE, SLING IN PLACE. PT RATES PAIN 5/10 L SHOULDER. PRN PAIN MEDICATION ADMINISTERED. SCDS, HEEL PROTECTORS IN PLACE, SPO2 WNL CONT. PULSE OX.
--- NOTE | 2018-05-02 05:45 | NUR ---
PT AOX4, APPROPRIATE, POLITE. PT RECIEVED PRN PAIN MEDICATION X3 THIS SHIFT. SEE EMAR.PT'S PAIN 5-10/10. ON CPOX RELATED TO PRN PAIN MEDICATION USE. O2 SAT >95 THROUGHOUT NIGHT. NO N/V. LS CLEAR, BT ACTIVE, ABD NONTENDER. BED ALARM. CRYOCUFF ON LEFT SHOULDER. BOYD DRESSING ON WELL. MODERATE AMOUNT OF DRAINAGE NOTED. SLING ON LEFT ARM. PT AMBULATES WELL WITH 1 PERSON SBA/CANE.
--- NOTE | 2018-05-02 06:57 | NUR ---
IN ROOM TO ADMIN 0700 MED. PT RESTING IN BED WATCHING TV. STATES PAIN IS 4/10 AND THAT SHE FEELS "FINE" DENIES NEED FOR PRN PAIN MEDICATION. CRYOCUFF IN PLACE. HYDRATION AT BEDSIDE. CALL LIGHT WITHIN REACH. NO NEEDS AT THIS TIME.
--- NOTE | 2018-05-02 07:12 | NUR ---
RECEIVED REPORT FROM HERBERTH BUCKNER. PT SLEEPING AT THIS TIME. CPOX, ROOM AIR, WNL. IV SALINE LOCKED. PAIN 11/07. BOYD DRESSING, CRYOCUFF, SLING IN PLACE. MODERATE DRAINAGE ON BOYD DRESSING.
--- NOTE | 2018-05-02 08:30 | NUR ---
PATIENT WAS ASKED ABOUT WHAT KIND OF BREAKFAST SHE WANTS TO ORDER BUT SHE REFUSE TO ORDER BREAKFAST.
--- NOTE | 2018-05-02 08:42 | NUR ---
ASSESSMENT COMPLETE. PRN PAIN MEDICATIONS ADMINISTERED FOR PAIN 5/10 IN LEFT SHOULDER. BOYD DRESSING IN PLACE, SANGUINOUS DRAINAGE NOTED UP TO SUCTION DEVICE. CRYOCUFF AND SLING ON LEFT SHOULDER. BOWEL PREP HELD, PT HAD 2 BM PREVIOUS SHIFT. IV SALINE LOCKED. NO REQUESTS AT THIS TIME. CALL LIGHT NEXT TO PT, BED ALARM ON.
--- NOTE | 2018-05-02 09:40 | NUR ---
DRESSING CHANGED PER ORDER, INCISION WITHOUT REDNESS, EDGES WELL APPOXIMATED, MAR IN PLACE. MEPILEX AND OPSITE DRESSING APPLIED. PT ASSISTED TO SHOWER, 1PA, PT ABLE TO DO MOST OF BATHING BY HER SELF, REQUIRED ASSISTANCE FOR SHAMPOO AND BATHING RIGHT ARM. SLING AND CRYOCUFF REPLACED. PT RESTING IN BED. PT DENIES OTHER NEEDS AT THIS TIME.
--- NOTE | 2018-05-02 10:23 | NUR ---
0900. Assessed pt L shoulder, BOYD dressing intact, a moderate amount of serosanguineous drainage noted on dressing. Pt c/o L shoulder pain 5/10, pt given oxycodone and acetaminophen per her request for pain management. Sensation intact L arm, generalized swelling noted in L arm.
--- NOTE | 2018-05-02 12:49 | NUR ---
PT REQUESTING PAIN MEDICATION, PT RATING PAIN 7/10 TO LEFT SHOULDER. PT GIVEN 10 MG OXYCODONE, 500 MG ACETOMINOPHEN. PT RESTING IN BED. PT DENIES OTHER NEEDS AT THIS TIME.
--- NOTE | 2018-05-02 15:43 | NUR ---
IN ROOM TO ADMINISTER SCHEDULED MEDICATIONS. PT STATES PAIN IS 5/10 AT THIS TIME. PT UP TO RESTROOM WITH PETROLEUM REFINING EQUIPMENT OPERATOR, BACK TO BED. CRYOCUFF AND SLING IN PLACE. MEPILEX AND OP SITE CLEAN DRY AND INTACT. PT REPORTS MINIMAL TINGLING IN LEFT FINGERS. DENIES NUMBNESS. RADIAL PULSE STRONG. ASHLEE HENRY, SCD'S, HEEL PROTECTORS IN PLACE. CALL LIGHT NEXT TO PT. BED ALARM ON. NO REQUESTS AT THIS TIME.
--- NOTE | 2018-05-02 15:45 | NUR ---
PATIENT CALLS TO USE THE BATHROOM. PATIENT BACK TO BED. BED ALARM ON. CALL LIGHT WITHIN REACH. NO OTHER NEEDS AT THIS TIME.
--- NOTE | 2018-05-02 16:49 | NUR ---
IN ROOM TO ADMIN PRN PAIN MEDICATIONS FOR 7/10 PAIN IN LEFT SHOULDER. PT STATES SENSATION IS INTACT IN LEFT FINGERS. CRYOCUFF AND SLING IN PLACE. ASHLEE HENRY, SCD'S, HEEL PROTECTORS IN PLACE. BED ALARM ON.
--- NOTE | 2018-05-02 17:05 | NUR ---
PT RECEIVED PRN PAIN MEDICATIONS THROUGHOUT SHIFT, PAIN WELL CONTROLLED THROUGHOUT SHIFT. MEPILEX AND OP SITE APPLIED TO LEFT SHOULDER, BOYD DRESSING REMOVED. INCISION WITH MAR INTACT, NO REDNESS NOTED AROUND SITE. DRESSING IS CURRENTLY CLEAN, DRY, AND INTACT. CRYOCUFF AND SLING IN PLACE. PT WORKED WITH P.T/O.T TODAY, AMBULATED HALLWAY. SBA WITH CANE TO RESTROOM. PT HAD 4 BM'S TODAY, BOWEL PREP HELD. IV SALINE LOCKED. BED ALARM ON THROUGHOUT SHIFT. SCD'S, ASHLEE HOSE, HEEL PROTECTORS IN PLACE THROUGHOUT SHIFT.
--- NOTE | 2018-05-02 20:26 | NUR ---
VITALS AND I&OS DONE AND CHARTED. FRESH ICE WATER GIVEN. BEDSIDE TABLE AND CALL LIGHT IN REACH. ADDED ICE TO CRYO. PT NEEDS NOTHING MORE AT THIS TIME.
--- NOTE | 2018-05-02 21:00 | NUR ---
PATIENT HAS BEEN MEDICATED FOR PAIN AND NAUSEA AND BOTH SEEM TO HAVE RESOLVED AT THIS TIME.
--- NOTE | 2018-05-02 21:42 | NUR ---
ROUNDED CHARGE. SATELLITE INSTALLATION TECHNICIAN IN ROOM REFILLING CRYO. PATIENT DENIES ANY PAIN. PATIENT IS RESTIN GIN BED. PATIENT DENIES ANY COMMENTS, QUESTIONS, OR CONCERNS. NO NEEDS NOTED. CALL JACK GREEN.
--- NOTE | 2018-05-03 00:35 | NUR ---
PATIENT CONTINUES TO REST QUIETLY SUPINE, RRESPIRATIONS EVEN AND REGULAR AT AT RATE OF 16, EYES CLOSED. PATIENT CRYO CUFF IN PLACE AND PATIENT APPEARS TO BE IN NO DISTRESS.
--- NOTE | 2018-05-03 02:17 | NUR ---
PATIENT STILL CONTINUES TO APPEAR TO BE RESTING WELL. CRYO CUFF IS IN PLACE, PATIENT'S RESPIRATIONS ARE EVEN AND REGULAR STILL AT A RATE OF 16-18, AND PATIENT APPEARS TO BE IN NO DISTRESS.
--- NOTE | 2018-05-03 03:25 | NUR ---
PATIENT UP TO THE BATHROOM WITH 1PSBA AND CANE AND VOIDED 400MLS. BACK IN BED NOW 10MG OXYCODONE AND 500MG TYLENOL PO FOR RIGHT SHOULDER PAIN. CRYO CUFF ICE REFILLED AND PLACED BACK ON RIGHT SHOULDER. SCD'S BACK IN PLACE AND PATIENT SAYS SHE IS COMFORTABLE TO TRY AND GO BACK TO SLEEP AT THIS TIME.
--- NOTE | 2018-05-03 05:30 | NUR ---
PATIENT CONTINUES TO REST QUIETLY WITH REGULAR RESPIRATIONS, EYES CLOSED, AND IN NO VISIBLE DISCOMFORT.
--- NOTE | 2018-05-03 06:49 | NUR ---
PATIENT SLEPT VERY WELL THROUGH THE NIGHT WITH GOOD PAIN CONTROL WITH OXYCODONE. CRYO CUFF HAS REMAINED IN PLACE EXCEPT FOR WHEN PATIENT NEEDED TO GET UP TO VOID WITH CAN AND 1PSBA. LEFT SHOULDER DRESSING REMAINS CLEAN DRY AND INTACT.
--- NOTE | 2018-05-03 07:23 | NUR ---
RECIEVED REPORT FROM HERBERTH BANSAL. PT AWAKE IN BED. PATIENT STATES PAIN "IS FINE" AT THIS TIME. IV SALINE LOCKED. MEPILEX AND OP SITE IN PLACE, CLEAN, DRY, AND INTACT. CRYOCUFF AND SLING IN PLACE. ANA HENLEY'S HEEL PROTECTORS ON. BED ALARM ON, CALL LIGHT NEXT TO PT.
--- NOTE | 2018-05-03 07:58 | NUR ---
PATIENT IN BED. SETTING UP EATING BREAKFAST, FACE WASHED. FRESH WATER GIVEN, WILL SHOWER, NO OTHERE NEEDS AT THIS TIME
--- NOTE | 2018-05-03 09:30 | NUR ---
ASSESSMENT COMPLETE. PRN PAIN MEDICATION ADMINISTERED FOR 8/10 PAIN IN LEFT SHOULDER. PT STATES SENSATION IS INTACT. RADIAL PULSE STRONG. CRYOCUFF FILLED WITH ICE, IN PLACE. SLING ON SHOULDER. MEPILEX AND OP SITE CLEAN, DRY, AND INTACT. IV SALINE LOCKED. ASHLEE HENRY, SCD'S, AND HEEL PROTECTORS IN PLACE. PT STATES "SHE HAS TO GO HOME TODAY BECAUSE OF HER DOG AT HOME".
--- NOTE | 2018-05-03 11:34 | NUR ---
IN ROOM TO REASSES PTS PAIN. PT STATES PAIN IS TOLERABLE AND IS 5/10 AT THIS TIME. NO REQUESTS AT THIS TIME. CRYOCUFF, SLING IN PLACE.
--- NOTE | 2018-05-03 13:29 | NUR ---
IN ROOM TO ASSESS PTS PAIN. PT STATED PAIN IS 10/10. PRN PAIN MEDICATION ADMINISTERED. CRYOCUFF IN PLACE. NO REQUESTS AT THIS TIME. CALL LIGHT NEXT TO PT.
--- NOTE | 2018-05-03 13:37 | NUR ---
PATIENT UP TO THE REST ROOM STBA 1 PERSON. BACK TO BED, CYRO FILLED WITH ICE, CALL LIGHT WITH IN REACH. NO OTHER NEEDS AT THIS TIME.
--- NOTE | 2018-05-03 15:21 | NUR ---
PATIENT IN HER BED 2 VISTORS. CALL LIGHT IN REACH .NO OTHER NEEDS.
--- NOTE | 2018-05-03 15:45 | NUR ---
IN ROOM TO REASSESS PTS PAIN. PT STATES PAIN IS 7/10 AND TOLERABLE AT THIS TIME. NO REQUESTS AT THIS TIME.
--- NOTE | 2018-05-03 17:25 | NUR ---
IN ROOM TO ASSESS PTS ARM. PT DECLINED BOWEL PREP MEDICATIONS. OP SITE CLEAN, DRY, AND INTACT. CRYOCUFF IN PLACE. ORDERED PTS DINNER. BED ALARM ON, CALL LIGHT NEXT TO PT. SENSATION INTACT.
--- NOTE | 2018-05-03 17:48 | NUR ---
PTS PAIN WAS WELL CONTROLLED THROUGHOUT SHIFT WITH PRN PAIN MEDICATIONS. PT WORKED WITH PT/OT TODAY. SENSATION INTACT IN LEFT ARM. MEPILEX AND OP SITE CLEAN, DRY, AND INTACT. CRYOCUFF IN PLACE. IV SALINE LOCKED. CANE WITH SBA WITH AMBULATION. TEDS, SCD'S, AND HEEL PROTECTORS IN PLACE WHILE IN BED. BED ALARM ON.
--- NOTE | 2018-05-03 18:48 | NUR ---
IN ROOM TO CHECK ON PT. PT EATING DINNER WATCHING TV. NO REQUESTS AT THIS TIME. CALL LIGHT NEXT TO PT.
--- NOTE | 2018-05-03 20:00 | NUR ---
CHARGE NURSE ROUNDING NOTE: AWAKE, WATCHING TV, L ARM INPLACE, CRYOCUFF TO LEFT AR, DENIES C/O PAIN OR N/V, CALL LIGHT AND FLUIDS AT BEDSIDE, BED ALARM ON
--- NOTE | 2018-05-03 20:21 | NUR ---
VITALS AND I&OS DONE AND CHARTED. CRYO FILLED, ICE WATER GIVEN. BEDSIDE TABLE AND CALL LIGHT IN REACH. PT NEEDS NOTHING AT THIS TIME.
--- NOTE | 2018-05-03 23:00 | NUR ---
PATIENT'S EVENING ASSESSMENT HAS BEEN DONE AND EVENING MEDS GIVEN. PATIENT RESTING QUIETLY EYES CLOSED RESPIRATIONS REGULAR AND EVEN AT 18. SCD'S ON AND BED ALARM IS ON. CRYO CUFF IN PLACE.
--- NOTE | 2018-05-04 01:01 | NUR ---
HELPED PT TO THE BATHROOM AND BACK TO BED WITH HER FWW. CHANGED HER ATTEND, AND GOWN. DID COMPLETE BED CHANGE DUE TO INCONTINENCE OF URINE. FILLED HER CRYO. BEDSIDE TABLE AND CALL LIGHT IN REACH. SCD'S AND BED ALARM PUT ON. SHE NEEDS NOTHING MORE AT THIS TIME.
--- NOTE | 2018-05-04 03:00 | NUR ---
PATIENT HAS BEEN RESTING SUPINE UNLESS UP TO THE BATHROOM. PAIN MEDICATION ONLY NEEDED WITH EVENING MED PASS.
--- NOTE | 2018-05-04 05:53 | NUR ---
I&OS DONE AND CHARTED. FILLED CRYO WITH FRESH ICE. BEDSIDE TABLE AND CALL LIGHT IN REACH.
--- NOTE | 2018-05-04 06:37 | NUR ---
PATIENT HAS APPEARED TO SLEEP WELL MOST OF THE NIGHT UNLESS UP TO VOID. TEDS, SCD'S, AND HEEL PROTECTORS ON. IV DC'D PER ORDER. PATIENT CRYO CUFF IN PLACE AND APPEARS TO BE DOING WELL. LEFT SHOULDER DRESSING CDI.
--- NOTE | 2018-05-04 07:26 | NUR ---
RECIEVED BEDSIDE REPORT FROM HERBERTH BANSAL. PT SLEEPING SOUNDLY, APPEARS COMFORTABLE. SLING IS LOOSENED WHILE ASLEEP.
--- NOTE | 2018-05-04 08:05 | NUR ---
Patient awake, face washed, Breakfast ordered, fresh water, call light in reach. no othere needs at this time.
--- NOTE | 2018-05-04 09:17 | NUR ---
SLING IN PLACE, CYRO CUFF IN PLACE. PT REPORTS NO NEEDS AT THIS TIME.
--- NOTE | 2018-05-04 12:16 | NUR ---
PT UP WALKING IN HALLS WITH P.T. NUMEROUS STAFF CAME BY AND ALL ENCOURAGED PT-SHE SEEMED TO RESPOND FAVORABLY. EXTENDED A BLESSING, WILL FOLLOW NEEDED
--- NOTE | 2018-05-04 14:35 | NUR ---
PT RESTING ON RIGHT SIDE. PT STATES PAIN IS "OVER 10". PT STATES SHE JUST TOOK OFF HER CYRO AND SLING AND WOULD NOT ALLOW RN TO REPLACE. RN AND PT REPOSITIONED TO A MORE COFORTABLE POSITION. GAVE 10MG OXY. OT WILL WORK WITH PT AFTER MEDS ARE EFFECTIVE.
--- NOTE | 2018-05-04 17:16 | NUR ---
PT TOOK SLING AND CYRO CUFF OFF FREQUENTLY. STAFF CONTINUED TO REMIND HER TO KEEP SLING AND CUFF ON. PT REPORTED PAIN, PRX OXY GIVEN X2. MINIMAL PO INTAKE, ENCOURAGE FOOD.
--- NOTE | 2018-05-04 20:00 | NUR ---
PATIENT RESTING QUIETLY IN BED, WATCHING TV, HAVING NO PAIN.
--- NOTE | 2018-05-04 20:35 | NUR ---
VITALS AND I&OS DONE AND CHARTED. BEDSIDE TABLE AND CALL LIGHT IN REACH. PT NEEDS NOTHING MORE AT THIS TIME.
--- NOTE | 2018-05-04 22:48 | NUR ---
PATIENT IS NOW ASLEEP, PAIN SEEMS TO BE GONE. SCD'S ON, CRYO CUFF ON. RESPIRATIONS REGULAR AND EVEN AT A RATE OF 16.
--- NOTE | 2018-05-05 01:38 | NUR ---
PATIENT RESTING QUIETLY SUPINE, RESPIRATIONS REGULAR AND EVEN AT 16. SCD'S ON AND CRYO CUFF IN PLACE. EYES CLOSED.
--- NOTE | 2018-05-05 03:40 | NUR ---
PATIENT RESTING QUIETLY, EYES CLOSED, RESPIRATIONS REGULAR AND EVEN WITH A RATE OF 16. SCD'S ON AND CRYO CUFF IN PLACE.
--- NOTE | 2018-05-05 04:45 | NUR ---
PER PT REQUEST I BROUGHT HER 2 WARM BLANKETS. BED ALARM ON.
--- NOTE | 2018-05-05 05:47 | NUR ---
I&OS DONE AND CHARTED.
--- NOTE | 2018-05-05 06:38 | NUR ---
PATIENT HAS SLEPT WELL MOST OF THE SHIFT EXCEPT FOR STA TO THE BATHROOM. ONLY NEEDED PM PAIN MEDS TIMES ONE. PATIENT HAS NOW BEEN REFUSING SCD'D AND CRYO CUFF. SHE HAS WANTED TO HAVE A BREAK FROM THEM. PATIENT'S DRESSING IS CLEAN DRY AND INTACT.
--- NOTE | 2018-05-05 07:03 | NUR ---
RECIEVED BEDSIDE REPORT FROM HERBERTH BANSAL. PT REFUSING SCD AND CYROCUFF, "I'M TIRED OF BEING TIED DOWN". PT SLEEPING SOUNDLY, NO PAIN OR NAUSEA REPORTED.
--- NOTE | 2018-05-05 10:11 | NUR ---
pt resting in bed. pt refused shower, said she will take one tmrw. pt has no needs at this time. call light within reach.
--- NOTE | 2018-05-05 14:09 | NUR ---
pt is resting in bed. pt has no needs at this time.
--- NOTE | 2018-05-05 14:36 | NUR ---
PT CALLED RN INTO HER ROOM. PT STATED "I HAVE TO GET OUT OF HERE." RN FURTHER QUESTIONED PT ABOUT WHY SHE WANTED TO GO HOME. PT STATED THAT SHE JUST WANTED TO GO HOME AND GET OUT OF HERE. PT STATED SHE HAD ACTIVTIES (CROSSWORDS, READING MATERIALS, ECT). RN ASKED HOW SHE PLANNED TO GET DRESSED WITH HER SHOULDER. PT STATED SHE KNEW HOW TO GET DRESSED BECAUSE SHE HAD A HIP REPLACEMENT. RN REMINDED PT THAT HIP REPLACEMENT IS MUCH DIFFERENT THAN SHOULDER INJURY AND THE ACTIVITY IS MUCH DIFFERENT. PT STATED THAT SHE UNDERSTOOD THAT. PT WOULD LIKE MD TO ROUND ON HER. PT HAS WORKED WITH PHYSICAL THERAPY AND IS MAKING PROGRESS.
--- NOTE | 2018-05-05 15:06 | NUR ---
DISCUSSED WITH DR DYER PT REQUEST TO GO HOME. ADVISED THAT PT NEEDS TO GET UP AND GET DRESSED, GET OUT OF BED. DR DYER WILL ROUND ON HER.
--- NOTE | 2018-05-05 18:26 | NUR ---
pt resting in bed. pt has no needs at this time. call light within reach.
--- NOTE | 2018-05-05 18:31 | NUR ---
PT WANTS TO LEAVE HOSPITAL. RN AND MD SPOKE WITH PT ABOUT NEED FOR ADDITIONAL THERAPY. PT IS NOT SAFE TO BE ALONE AT HOME. PT AND RN AGREED ON PLAN OF CARE TO ASSIST PT IN MEETING GOALS. PT HAS DX OF BIPOLAR AND CYCLES BETWEEN TEARFULNESS AND HAPPINESS.
--- NOTE | 2018-05-05 19:50 | NUR ---
VITALS DONE AND CHARTED. PT NEEDS NOTHING AT THIS TIME. BEDSIDE TABLE AND CALL LIGHT IN REACH.
--- NOTE | 2018-05-05 20:00 | NUR ---
RECEIVED REPORT AT 1900, FOUND PT IN BED SLEEPING. I WAS TOLD PT WANTED TO LEAVE [facility] TODAY. PT MORE THAN LIKELY WILL D/C ON 05/07/18. NO NEW CONCERNS AT THIS TIME.
--- NOTE | 2018-05-05 22:00 | NUR ---
V/S ARE WDL. ALL LOBES ARE CLEAR. LEFT SHOULDER DRESSING IS C/D/I. PT DENIES NUMBNESS AND TINGLING IN LEFT HARM AND HAND. PT SEEMS AGREEABLE AT THIS TIME TO STAY IN THIS FACILITY BUT WISHES TO BE LEFT ALONE TIL THE EARLY MORING HOURS. PAIN WAS 8/10. PRN OXY 10MG WAS GIVEN. NO NEW CONCERNS AT THIS TIME.
--- NOTE | 2018-05-06 00:03 | NUR ---
PT APPEARS TO BE SLEEPING AT THIS TIME.
--- NOTE | 2018-05-06 02:00 | NUR ---
PT IS SLEEPING AT THIS TIME.
--- NOTE | 2018-05-06 04:00 | NUR ---
PT IS STILL SLEEPING.
--- NOTE | 2018-05-06 05:25 | NUR ---
AT START OF SHIFT IT WAS AGREED THAT WE WOULD LEAVE PT ALONE AND NOT BOTHER HER UNTIL MORNING V/S. THEREFORE PT HAS BEEN SLEEPING ALL SHIFT. LOBES ARE CLEAR. LEFT SHOULDER DRESSING IS C/D/I. PT DENIES NUMBNESS AND THINGLING IN LEFT ARM AND HAND. V/S ARE WDL. ICE PACK TO LEFT SHOULDER AT START OF SHIFT. SLING IS ON. NO NEW CONCERNS AT THIS TIME.
--- NOTE | 2018-05-06 05:59 | NUR ---
I&os done and charted.
--- NOTE | 2018-05-06 07:24 | NUR ---
RECIEVED REPORT FROM HERBERTH ALANIZ. PT AND RN AGREED TO ALLOW PT TO SLEEP ALL NIGHT. PT SLEEPING SOUNDLY, BREATHING EVEN AND UNLABORED. PT APPEARS COMFORTABLE.
--- NOTE | 2018-05-06 08:39 | NUR ---
PATIENT RESTING IN BED, EYES CLOSED, CALL LIGHT IN REACH. NO OTHER NEEDS AT THIS TIME.
--- NOTE | 2018-05-06 09:02 | NUR ---
PER PLAN WITH RN ON 05/05, PT AGREED TO GET DRESSED TODAY. PT WANTS TO LISTEN TO A [place] PROGRAM ON HER PHONE FOR ABOUT AN HOUR, BUT THEN WILL GET DRESSED. PT WASHED FACE AT BEDSIDE WITH RN SET UP. PT WANTS TO BRUSH TEETH AFTER BREAKFAST. PT STATES HER SHOULDER IS ACHY, BUT DOES NOT NEED PAIN MEDS AT THIS TIME. SHE THINKS SHE SLEPT FUNNY. RN TALKED TO PHYSICAL THERAPY. THERAPY WILL WORK [facility] PT ABOUT 1030. RN WILL PRE-MEDICATE AT 1000.
--- NOTE | 2018-05-06 14:24 | NUR ---
PT UP AND DRESSED, SITTING IN THE CHAIR. PT STATES SHE DOES NOT LIKE TRYING TO GET A ZIP UP SWEATER ON, BUT HAS OTHER CLOTHES AT HOME SHE CAN WEAR EASIER. SHOES ARE ANOTHER LESLIE, BUT SHE HAS SLIDE ON SHOES AT HOME. PT APPEARS COMFORTABLE. STATES SHE DOES NOT NEED PAIN MEDS AT THIS TIME. PT WALKED HALLS WITH PHYSICAL THERAPY.
--- NOTE | 2018-05-06 15:06 | NUR ---
PATIENT SITTING UP ON BEDSIDE RECLINER. THIS ORTHOPEDIC DESIGNER ASSISTED PATIENT TO DRESS AND PERFORM ORAL CARE AND WALK HALLWAYS EARLIER TODAY. PATIENT RESTING NOW, CALL LIGHT IN REACH, NO OTHER NEEDS AT THIS TIME.
--- NOTE | 2018-05-06 18:12 | NUR ---
PT UP AND DRESSED THIS SHIFT. COMPLETED ADL'S WITH MINIMAL RN INTERVENTIONS. HAD DIFFICULTY WITH ZIP UP SWEATER AND SHOES. PT REQUESTS ORAL PAIN MEDS X2. AMBULATED WITH IN HALLS WITH CANE AND PHYSICAL THERAPY. AMBULATED TO BATHROOM WITH CANE, NO RN ASSISTANCE NEEDED. PT HAD INCREASED PO INTAKE.
--- NOTE | 2018-05-06 18:52 | NUR ---
PT UNDRESSED HERSELF WITH VERY MINIMAL ASSISTANCE. PT COULD NOT GET HER HAND OUT OF HER SWEATER SLEEVE. PT ABLE TO GET GOWN ON, BUT NEEDED ASSISTANCE ADJUSTING SLING.
--- NOTE | 2018-05-06 20:00 | NUR ---
RECEIVED REPORT AT 1900, FOUND PT IN BED IN [facility]. PT HAD NO NEEDS OR CONCERNS AT THAT TIME.
--- NOTE | 2018-05-06 21:04 | NUR ---
PT UP TO BATHROOM, SBA WITH CANE. PT VOIDED THEN RETURNED TO BED. CALL LIGHT WITHIN REACH.
--- NOTE | 2018-05-06 21:10 | NUR ---
PT RATING PAIN 9/10 IN THE LEFT SHOULDER. ASSIGNED RN NOTIFIED. PT DENIES FURTHER NEEDS, CALL LIGHT WITHIN REACH.
--- NOTE | 2018-05-06 22:00 | NUR ---
V/S ARE WDL OVERALL. PAIN WAS A 9/10. PRN 10MG OXY GIVEN. ALL LOBES ARE CLEAR. LEFT SHOULDER DRESISNG IS C/D/I. RADIAL PULSES ARE +2, THERE IS SOME EDEMA PRESENT ON LEFT ARM. NO NEW ISSUES NOTED SO FAR. PT WANTS TO SLEEP AGAIN ALL NIGHT. WILL NOT DISTURB HER UNTIL MORNING MEDS ARE DUE.
--- NOTE | 2018-05-07 | NUR ---
PT APPEARS TO BE SLEEPINGA AT THIS TIME.
--- NOTE | 2018-05-07 02:00 | NUR ---
PT IS SLEEPING AT THIS TIME.
--- NOTE | 2018-05-07 04:00 | NUR ---
PT IS SLEEPING AT THIS TIME.
--- NOTE | 2018-05-07 06:20 | NUR ---
V/S ARE WDL, RADIAL PULSE IN LEFT ARM IS +2, SOME EDEMA PRESENT. PT DENIES NUMBNESS AND TINGLING. ALL LOBES ARE CLEAR. PT IS INDEPENDANT IN ROOM AND ABLE TO DO BASIC ADL'S HERSELF. PT SELPT MOST OF THIS SHIFT. PT RECEIVED 10MG PRN OXY THIS SHIFT. PT STATED PAIN 04/09. I AM NOT SURE HOWEVER IF SHE WANTS IT FOR SLEEP RATHER THAN FOR PAIN. NO NEW CONCERNS NOTED AT THIS TIME.
--- NOTE | 2018-05-07 07:45 | NUR ---
RECIEVED BEDSIDE REPORT FROM HERBERTH RIVERO. PT SLEEPING, BREATHING EVEN AND UNLABORED. RN REPORTS PT SLEPT ALL NIGHT, NO COMPLAINTS.
--- NOTE | 2018-05-07 08:03 | NUR ---
PATIENT RESTING IN BED. PATIENT REFUSE TO ORDER HER BREAKFAST. CALL LIGHT WITHIN REACH. NO OTHER NEEDS AT THIS TIME.
--- NOTE | 2018-05-07 09:52 | NUR ---
PATIENT RESTING IN BED. VITALS AND I&O DONE. ICE WATER GIVEN. CALL LIGHT WITHIN REACH. BATHROOM SETS UP FOR SHOWER. NO OTHER NEEDS AT THIS TIME.
--- NOTE | 2018-05-07 09:54 | NUR ---
ASSUMED CARE OF PT FROM ROGER KEVIN. PT CALLED FOR ASSISTANCE TO RESTROOM. SBA WITH CANE, PT STEADY ON FEET. PT HAD BM. AMB BACK TO BED. REFUSED BREAKFAST THIS AM STATES "I'M NOT A BREAKFAST PERSON." RATING LEFT ARM PAIN 5/10, MEDICATED WITH 10MG PO OXY. PT DENIES NAUSEA OR OTHER CONCERNS, ALERT AND ORIENTED. LEFT ARM WITH GOOD MOVEMENT AND GOOD CMS, WARM AND PINK, CAP REFILL 3. SLING IN PLACE. CALL LIGHT WITHIN REACH.
--- NOTE | 2018-05-07 11:32 | NUR ---
PT RESTING IN BED, SEEMS MORE ALERT ANE ORIENTED TODAY. SHE STATED SHE IS HEADED HOME TODAY AND THAT SHE IS READY. EXTENDED A BLESSING, AND SHE THANKED ME. WILL FOLLOW NEEDED
[2018-05-07] MEDS ORDERED: OXYCODONE HCL10 MG PO (12:46)
[2018-05-07] MEDS ORDERED: NICORETTE4 M2 BUCCAL (12:47)
[2018-05-07] MEDS ORDERED: CLONAZEPAM1 MG PO (12:47)
[2018-05-07] MEDS ORDERED: GEODON40 MG PO (12:47)
--- NOTE | 2018-05-07 13:04 | NUR ---
PT DRESSED WITH ASSISTANCE FROM O.T. PT DENIES NEED FOR PAIN MEDICATION AT THIS TIME. ATE LUNCH. CALL LIGHT WITHIN REACH.
--- NOTE | 2018-05-07 15:00 | NUR ---
PERSONAL BELONGINGS GATHERED. VERBAL AND WRITTEN INSTRUCTIONS REVIEWED WITH PT, SENT WITH PRESCRIPTION FOR PAIN. NO IV SITE TO DC. PT WAITING FOR FRIEND FOR RIDE.
--- NOTE | 2018-05-07 15:17 | NUR ---
FAXED CHART NOTES TO [facility] FOR PT. TALKED WITH MATILDA REGARDING THIS PT. FAX INCLUDED FACE SHEET, ORDER, H AND P, PROG NOTES, PT AND OT NOTES. TALKED WITH MIGUEL about this pt. RECIEVED FAX CONFIRMATION.
== END 2018-05-07 15:30 | disposition home or self-care (01) | DRG 483 ==
LOC: MS 13:55
PROVIDERS: ADMIT Internal Medicine
PROC: 0RRK0J6 Replacement of Left Shoulder Joint with Synthetic Substitute, Humeral Surface, Open Approach (ICD-10-PCS; principal; 2018-04-30)
DX: S42.202A Unspecified fracture of upper end of left humerus, initial encounter for closed fracture (principal); N17.9 Acute kidney failure, unspecified; R26.2 Difficulty in walking, not elsewhere classified; E86.0 Dehydration; G25.81 Restless legs syndrome; K59.03 Drug induced constipation; T40.2X5A Adverse effect of other opioids, initial encounter; F31.9 Bipolar disorder, unspecified; E03.9 Hypothyroidism, unspecified; I10 Essential (primary) hypertension; W19.XXXA Unspecified fall, initial encounter; Z91.81 History of falling; Z87.820 Personal history of traumatic brain injury; Z79.899 Other long term (current) drug therapy; Z88.8 Allergy status to other drugs, medicaments and biological substances
CPT/HCPCS: 36415; 80048; 80053; 85025; 86850; 86900; 86901; 97110; 97116; 97162; 97165; 97535; G8978; G8979; G8987; G8988; J0330; J0690; J1100; J1650; J1885; J2250; J2405; J2704; J2765; J2795; J3010; J7120

== ENCOUNTER → 2018-04-30 | Day surgery (SDC) | payer MEDICARE, OTHER ==
--- NOTE | 2018-04-30 09:50 | NUR ---
PATIENT IS READY FOR SURGERY
--- NOTE | 2018-04-30 10:23 | NUR ---
MCKENZIE KAVON IN TO DO BLOCK, DR. MENDIOLA IN TO KAVON PATIENT. TRANEXAMIC ACID INFUSING.
--- NOTE | 2018-04-30 13:14 | NUR ---
04/30/18 1314 Ashleigh Crystal 0914- PT ARRIVES TO PACU AWAKE AND TALKING WITH STAFF. PT ON 10L VIA MASK. OXYGEN SAT 100% ON THIS. PT REPORTS NO NAUSEA OR PAIN AT THIS TIME.
== END ==
LOC: DS 09:10 → MS 10:30 → EDSTATUS 10:30 → DS 10:30
PROVIDERS: Specialist
PROC: 0RRK0J6 Replacement of Left Shoulder Joint with Synthetic Substitute, Humeral Surface, Open Approach (ICD-10-PCS; principal; 2018-04-30 10:30)
DX: S42.242A 4-part fracture of surgical neck of left humerus, initial encounter for closed fracture (principal); I10 Essential (primary) hypertension; E03.9 Hypothyroidism, unspecified; F31.9 Bipolar disorder, unspecified; Z88.8 Allergy status to other drugs, medicaments and biological substances; Z79.899 Other long term (current) drug therapy; W01.0XXA Fall on same level from slipping, tripping and stumbling without subsequent striking against object, initial encounter
CPT/HCPCS: 64415; 76942; C1713; C1776; J0330; J0690; J1100; J1885; J2250; J2405; J2704; J2765; J2795; J3010; J7120

== ENCOUNTER 2018-12-12 10:59 | Day surgery (SDC) | payer MEDICARE, OTHER ==
[~2018-12-12] VITALS: Ht 157.5 cm; Wt 54.0 kg
[~2018-12-12 10:59] MED LIST changes: +OXYCODONE HCL10 MG PO
--- NOTE | 2018-12-12 12:41 | NUR ---
12/12/18 1240 Peyton Moya 1234-PATIENT ARRIVED TO PACU ON RA AWAKE RR EVEN. 98% RA. PATIENT DENIES NAUSEA. REPORTS LEFT SHOULDER PAIN 5/10 SHOULDER PROTRUDING NO SKIN BREAKDOWN. PATIENT REPORTS HAS PAIN AT HOME WITH SHOULDER AWAITING SURGERY DOES NOT TAKE MEDICINE AT HOME. DENIES BONE MARROW SITE PAIN.
== END 2018-12-12 13:30 | disposition home or self-care (01) ==
LOC: OPS 10:59 → DS 10:59 → OPS 12:00
PROVIDERS: Specialist
PROC: 079T3ZX Drainage of Bone Marrow, Percutaneous Approach, Diagnostic (ICD-10-PCS; 2018-12-12)
PROC: 07DR3ZX Extraction of Iliac Bone Marrow, Percutaneous Approach, Diagnostic (ICD-10-PCS; principal; 2018-12-12 12:00)
DX: D72.822 Plasmacytosis (principal); D72.820 Lymphocytosis (symptomatic); D64.9 Anemia, unspecified; D72.829 Elevated white blood cell count, unspecified; D47.3 Essential (hemorrhagic) thrombocythemia; E78.5 Hyperlipidemia, unspecified; I10 Essential (primary) hypertension; E89.0 Postprocedural hypothyroidism; K21.9 Gastro-esophageal reflux disease without esophagitis; Z79.899 Other long term (current) drug therapy; Z87.891 Personal history of nicotine dependence
CPT/HCPCS: 85025; 88184; 88305; 88311; 88313; 88341; 88342; 88360; 88364; 88365; 99153; G0500; J2250; J3010

== ENCOUNTER 2023-03-19 17:23 | Emergency (ER) | payer MEDICARE, OTHER ==
[~2023-03-19] VITALS: Ht 165.1 cm; Wt 58.5 kg
--- OUTSIDE RECORDS SUMMARY | ~2023-03-19 | XMS | Continuity of Care Document ---
Demographics + + + | Address | [address] | | | [place] [address] | + + + | Preferred Language | Unknown | + + + | Marital Status | | + + + | Scientologist Affiliation | Unknown | + + + | Race | White | + + + | Ethnic Group | Unknown | + + + Author + + + | Author | [facility] | + + + | Organization | [facility] | + + + | Address | [address] | | | [place] [address] | + + + | Phone | | + + + Care Team Providers + + + + | Care Biological Scientist Name | Role | Phone | + + + + Unavailable | Unavailable | + + + + Allergies and Intolerances + + + + + + | date | description | facility | reaction | severity | + + + + + + | (no date) | No Known Drug | [facility] | (no reaction) | (no severity) | | | Allergies | | | | + + + + + + | (no date) | midazolam | [facility] | (no reaction) | (no severity) | + + + + + + Encounters No information. Functional Status No information. Immunizations No information. Medications No information. Problems + + + + | date | description | facility | + + + + | 2023-02-15 11:56 | CROHN'S DISEASE OF LARGE | [facility] | | | INTESTINE WITH OTHER | | | | COMPLICATION | | + + + + Procedures No information. Results/Labs No information. Social History No information. Vital Signs No information."
--- OUTSIDE RECORDS SUMMARY | ~2023-03-19 | XMS | Continuity of Care Document ---
Demographics + + + | Address | [address] | | | [place] [address] | + + + | Preferred Language | Unknown | + + + | Marital Status | | + + + | Jewish Affiliation | Unknown | + + + | Race | White | + + + | Ethnic Group | Unknown | + + + Author + + + | Author | [place] | + + + | Organization | [place] | + + + | Address | [address] | | | [place] [address] | + + + | Phone | | + + + Care Team Providers + + + + | Care Mobile Home Mechanic Name | Role | Phone | + [...]
[2023-03-19 19:15] VITALS: BP 129/63
== END 2023-03-19 19:48 | disposition home or self-care (01) ==
LOC: ED 17:23
DX: S16.1XXA Strain of muscle, fascia and tendon at neck level, initial encounter (principal); S00.03XA Contusion of scalp, initial encounter; W19.XXXA Unspecified fall, initial encounter; I10 Essential (primary) hypertension; J45.909 Unspecified asthma, uncomplicated; Z87.891 Personal history of nicotine dependence; Z88.8 Allergy status to other drugs, medicaments and biological substances; Z79.899 Other long term (current) drug therapy
CPT/HCPCS: 70450; 72125; 90471; 90715; 99283-25

== ENCOUNTER 2024-03-22 12:01 | Inpatient (IN) | payer MEDICARE, OTHER ==
[~2024-03-22] VITALS: Ht 165.1 cm; Wt 58.6 kg
[2024-03-22] MEDS ORDERED: SULFASALAZINE500 MG PO (12:08)
[2024-03-22] MEDS ORDERED: QUETIAPINE FUM200 M1 PO (12:08)
[2024-03-22] MEDS ORDERED: DIVALPROEX SOD500 MG PO (12:08)
[2024-03-22] MEDS ORDERED: ROPINIROLE HCL1 MG PO (12:08)
[2024-03-22] MEDS ORDERED: ARIPIPRAZOLE2 MG PO (12:08)
[2024-03-22] MEDS ORDERED: GABAPENTIN300 MG PO (12:08)
[2024-03-22 12:18] LABS: BASOPHILS 0.4 % (0-2); HEMATOCRIT 42.2 % (35.0-50.0); HEMOGLOBIN 14.2 g/dL (12.0-18.0); LYMPHOCYTES 16.6 % (24-44); MCH 27.9 (27-36); MCHC 33.7 g/dl (30-36); MCV 82.8 fl (81-99); MONOCYTES 12.1 % (0-12); NEUTROPHILS 67.9 % (39-80); PLATELET COUNT 688 K/uL (140-440); RDW 15.3 (10.5-15.0)
[2024-03-22 12:30] LABS: ALBUMIN 2.2 g/dL (3.4-5.0); ALBUMIN/GLOBULIN RATIO 0.49 (1.1-2.4); ANION GAP 18.5 (7-21); BILIRUBIN, TOTAL 0.5 ng/dL (0.2-1.0); BUN/CREATININE RATIO 17.14 (6.0-28.6); CALCIUM 8.5 mg/dL (8.5-10.1); CREATININE, SERUM 0.7 mg/dL (0.55-1.02); POTASSIUM 2.5 mmol/L (3.5-5.1); PROTEIN, TOTAL 6.7 g/dL (6.4-8.2)
[2024-03-22] MEDS ORDERED: ondansetron HCL 4 MG/2 ML VIAL IV ONE (12:30)
[2024-03-22] MEDS ORDERED: SODIUM CHLORIDE 0.9% 1,000 ML IV ONE ×2 (12:30→15:15)
[2024-03-22] MEDS ORDERED: DIPHENOXYLATE/ATROPINE 1 EA TAB PO ONE (12:30)
[2024-03-22] MEDS ORDERED: HYDROmorphone HCL 1 MG/ML SYR IV ONE (12:30)
[2024-03-22] MEDS ORDERED: POTASSIUM CHLORIDE 10 MEQ/100 ML BAG IV SCH (14:00)
[2024-03-22] MEDS ORDERED: POTASSIUM CHLORIDE 20 MEQ/15 ML CUP PO ONE (14:00)
[2024-03-22] MEDS ORDERED: methylPREDNISolone SOD SUCC 40 MG/ML VIAL IV SCH (15:00)
--- NOTE | 2024-03-22 15:39 | NUR ---
UR CLINICAL REVIEW: 2 MN FOR [facility] INPT CRITERIA MEDICARE INPT 03/22/24 @ 1451 ORDER MATCHES REG NO AUTH REQUIRED PER MEDICARE GUIDELINES DISCHARGE PLAN PENDING FURTHER EVALUATION
[2024-03-22] MEDS ORDERED: sulfaSALAzine 500 MG TAB PO SCH (15:45)
[2024-03-22 16:10] VITALS: BP 141/69
[2024-03-22] MEDS ORDERED: ACETAMINOPHEN 500 MG TAB PO PRN (16:15)
[2024-03-22] MEDS ORDERED: BUSPIRONE HCL5 MG PO (16:19)
[2024-03-22] MEDS ORDERED: BUDESONIDE ER9 MG PO (16:21)
[2024-03-22] MEDS ORDERED: OMEPRAZOLE20 MG PO (16:23)
[2024-03-22] MEDS ORDERED: LAMOTRIGINE100 MG PO (16:24)
[2024-03-22] MEDS ORDERED: LEVOTHYROXINE150 MCG PO (16:24)
--- NOTE | 2024-03-22 16:59 | NUR ---
PHARMACIST IN TO TALK TO PT ABOUT HER MEDS.
--- NOTE | 2024-03-22 17:06 | NUR ---
MED REC COMPLETE
[2024-03-22] MEDS ORDERED: POTASSIUM CHLORIDE 40 MEQ,LIDOCAINE HCL 1% 40 MG in DEXTROSE 5% 250 ML IV SCH (18:30)
[2024-03-22] MEDS ORDERED: OXYCODONE HCL 5 MG TAB PO PRN (18:30)
[2024-03-22 19:00] VITALS: BP 110/65
[2024-03-22 20:00] VITALS: BP 120/71
--- NOTE | 2024-03-22 20:00 | NUR ---
HAND OFF REPORT RECEIVED FROM HERBERTH VANESSA. PT LAYING AWAKE IN BED, ALERT AND ORIENTED. PT STATES HER ABDOMINAL PAIN IS A 5/10, BUT STATES SHE FEELS LIKE THE PAIN MEDICATION IS HELPING. PT BT ARE ACTIVE, TENDER TO PALPITATION. PT IS ON ROOM AIR, SATURATING WELL. PT LUNGS ARE CLEAR/DIM. PT VSS. PT IV SITE WNL. PT HAS NO NEEDS AT THIS TIME. CALL LIGHT WITHIN REACH.
[2024-03-22 21:00] VITALS: BP 121/64
[2024-03-22] MEDS ORDERED: ROPINIROLE HCL 1 MG TAB PO SCH (21:00)
[2024-03-22 22:00] VITALS: BP 122/67
--- NOTE | 2024-03-22 22:39 | NUR ---
PT HAD EPISODE OF INCONTINENCE. PT HAD SOFT STOOL. PT CHANGED INTO NEW BRIEFS, NO FURTHER NEEDS AT THIS TIME. CALL LIGHT WITHIN REACH.
[2024-03-22 23:00] VITALS: BP 120/71
--- NOTE | 2024-03-22 23:23 | NUR ---
20 GAUGE IV STARTED IN PT LEFT FOREARM. PT TOLERATED WELL. NO FURTHER NEEDS AT THIS TIME.
[2024-03-23] VITALS (19 sets, daily range): BP systolic 119–146; BP diastolic 66–95
--- NOTE | 2024-03-23 00:55 | NUR ---
PT ASSESSMENT COMPLETE. PT RESTING IN BED WITH EYES CLOSED. PT EASILY AWAKENED WITH VERBAL STIMULI. PT DENIES ANY PAIN AT THIS TIME. PT REMAINS ON ROOM AIR AND VITAL SIGNS ARE STABLE. PT DENIES FEELING NAUSEOUS. BOWEL TONES ARE ACTIVE. PT HAS NO NEEDS AT THIS TIME. CALL LIGHT WITHIN REACH.
--- NOTE | 2024-03-23 02:03 | NUR ---
PT RESTING IN BED WITH EYES CLOSED, RESPIRATIONS EVEN AND UNLABORED. CALL LIGHT WITHIN REACH.
--- NOTE | 2024-03-23 04:33 | NUR ---
PT ASSESSMENT COMPLETE. PT STATES HER PAIN LEVEL IS A 9/10. PT GIVEN PRN PAIN MEDICATION PER EMAR. PT REMAINS ON ROOM AIR, VSS. IV SITES WNL. NO FURTHER NEEDS AT THIS TIME. CALL LIGHT WITHIN REACH. BED IN LOW AND LOCKED POSITION.
--- NOTE | 2024-03-23 05:59 | NUR ---
PT STATES HER PAIN IS A 3/10. PT HAS AN EPIDOSE OF INCONTINENT LIQUID STOOL. PT LINEN AND GOWN CHANGED AND NEW BRIEF APPLIED. NO FURTHER NEEDS AT THIS TIME. CALL LIGHT WITHIN REACH.
[2024-03-23] MEDS ORDERED: ARIPiprazole 5 MG TAB PO SCH (06:00)
[2024-03-23 06:26] LABS: BASOPHILS 0.5 % (0-2); EOSINOPHILS 1.7 % (0-6); HEMATOCRIT 39.1 % (35.0-50.0); HEMOGLOBIN 12.8 g/dL (12.0-18.0)
[2024-03-23 06:29] LABS: LYMPHOCYTES 13.4 % (24-44); MCH 27.7 (27-36); MCHC 32.9 g/dl (30-36); MCV 84.2 fl (81-99); MONOCYTES 9.9 % (0-12); NEUTROPHILS 74.5 % (39-80); PLATELET COUNT 561 K/uL (140-440); RBC 4.64 M/ul (4.3-5.7); RDW 15.5 (10.5-15.0)
[2024-03-23 06:58] LABS: ALBUMIN 1.9 g/dL (3.4-5.0); ALBUMIN/GLOBULIN RATIO 0.49 (1.1-2.4); ANION GAP 11.7 (7-21); BILIRUBIN, TOTAL 0.3 ng/dL (0.2-1.0); BUN/CREATININE RATIO 14.51 (6.0-28.6); CALCIUM 7.9 mg/dL (8.5-10.1); CREATININE, SERUM 0.62 mg/dL (0.55-1.02); MAGNESIUM 1.8 mg/dL (1.8-2.4); POTASSIUM 3.7 mmol/L (3.5-5.1); PROTEIN, TOTAL 5.8 g/dL (6.4-8.2)
[2024-03-23] MEDS ORDERED: LEVOTHYROXINE SODIUM 150 MCG TAB PO SCH (07:00)
--- NOTE | 2024-03-23 07:30 | NUR ---
REPORT RECEIVED FROM ZOYA KEVIN. PT IN BED, RESTING WITH EYES CLOSED, RESP EVEN AND UNLABORED.
--- NOTE | 2024-03-23 07:56 | NUR ---
PTS MOM IN TO SEE HER
[2024-03-23] MEDS ORDERED: CITALOPRAM HYDROBROMIDE 20 MG TAB PO SCH (09:00)
[2024-03-23] MEDS ORDERED: PANTOPRAZOLE SODIUM 40 MG TABEC PO SCH (09:00)
--- NOTE | 2024-03-23 09:05 | NUR ---
PHYSICAL THERAPY IN TO SEE PT.
--- NOTE | 2024-03-23 09:51 | NUR ---
PT RESTING WITH EYES CLSOED, RESP EVEN AND UNLABORED.
[2024-03-23] MEDS ORDERED: PHARMACY RENAL DOSE ADJUSTMENT 1 DOSE MISC PO SCH (12:00)
--- NOTE | 2024-03-23 12:30 | NUR ---
PT CALLS TO HAVE ATTENDS CHANGED, INC STOOL, STOOL DOES HAVE SOME RED IN IT. JOJO CARE DONE, THEN PT STATES SHE NEEDS TO VOID. ASSISTED UP TO BSC TO VOID 300 ML URINE MIXED WITH SOME STOOL. BACK TO BED. PT DOES NOT FEEL LIKE EATING LUNCH OR ANYTHING ELSE. ASSESSMENT DONE. PT GIVEN PRN PAIN MEDS PER EMAR FOR CONTINUED ABD PAIN. MOM AT BEDSIDE, CALL LIGHT IN HAND.
--- NOTE | 2024-03-23 14:00 | NUR ---
PT RESTING WITH EYES CLOSED, RESP EVEN AND UNLABORED. MOTHER AT BEDSIDE.
--- NOTE | 2024-03-23 15:00 | NUR ---
PT APPEARS RESTFUL, WILL HOLD OFF ON MED TO LET PT SLEEP.
--- NOTE | 2024-03-23 15:08 | EKG ---
[facility] [address] [place] [address] Signed Normal sinus rhythm T wave abnormality, consider inferior ischemia Abnormal ECG When compared with ECG of 22-MAR-2024 14:00, (Unconfirmed) No significant change was found Confirmed by Byron Walker MD ([id number]) on 03/23/2024 3:08:41 PM Electronically Signed By: BYRON WALKER MD 03/23/24 1508 PATIENT NAME: OFELIADEMETRIO Electrocardiogram DATE OF : 48 PHYSICIAN: BYRON WALKER MD REPORT #: [id number] REPORT IS CONFIDENTIAL AND NOT TO BE RELEASED WITHOUT AUTHORIZATION
--- NOTE | 2024-03-23 16:30 | NUR ---
IN TO DO ASSESSMENT AND GIVE PT ALISA MED, DENIES NEEDS, STATES SHE HAS BEEN ABLE TO SLEEP, PAIN DOWN TO 3/10.
--- NOTE | 2024-03-23 18:38 | NUR ---
DINNER BROUGHT IN TO PT, SHE IS WILLING TO TRY SOME. STATES PAIN IS STARTING TO COME BACK, WILL MEDICATE PER EMAR.
--- NOTE | 2024-03-23 19:40 | NUR ---
HAND OFF REPORT FROM DAY SHIFT HERBERTH VANESSA. PT LAYING AWAKE IN BED. LAB IN ROOM FOR BLODO DRAW. PT IS ALERT AND ORIENTED. PT STATES SHE IS WORE OUT. PT BT ARE ACTIVE AND ABDOMEN IS TENDER TO TOUCH. PT LUNG SOUNDS ARE CLEAR/DIMINISHED. PT REMAINS ON ROOM AIR, VSS. PT STATES HER PAIN IS BETTER. PT HAS NO NEEDS AT THIS TIME. CALL LIGHT WITHIN REACH.
[2024-03-23 20:08] LABS: BUN/CREATININE RATIO 12.12 (6.0-28.6); CALCIUM 8.4 mg/dL (8.5-10.1); CREATININE, SERUM 0.66 mg/dL (0.55-1.02)
--- NOTE | 2024-03-23 22:15 | NUR ---
PT PUSHED CALL LIGHT, STATES IT WAS BY ACCIDENT. PT STATES HER PAIN LEVEL IS A 3/10 AND THAT SHE IS COMFORTABLE. PT HAS NO NEEDS AT THIS TIME. CALL LIGHT WITHIN REACH.
--- NOTE | 2024-03-23 23:35 | NUR ---
IN PT ROOM TO FIX TELE LEADS. PT HAD PULLED OUT BOTH IV SITES. PT STATED THEY WERE UNCOMFORTABLE. SITES ASSESSED. IV TIP INTACT X2.
[2024-03-24] VITALS (9 sets, daily range): BP systolic 128–160; BP diastolic 66–79
--- NOTE | 2024-03-24 00:21 | NUR ---
PATIENT UP OUT OF BED WITHOUT CALLING FOR ASSIST. PATIENT INTO BATHROOM WHEN RN ENTERED THE ROOM. PATIENT VOIDED AND HAD LOOSE RED STOOL IN ATTENDS AND TOILET. PATIENT ASSISTED TO CLEAN UP AND BACK TO BED. PATIENT REPORTS FEELING LIGHTHEADED WITH ACTIVITY. STATES THIS "HAPPENS SOMETIMES". PATIENT ALERT AND ORIENTED X4. VS STABLE. NEW GOWN AND ATTENDS PROVIDED. FRESH ICE WATER PROVIDED PER REQUEST. PATIENT VERBALIZED UNDERSTANDING OF NOT EXITING BED WITHOUT CALLING. BED ALARM ACTIVE AND CALL LIGHT IN HAND.
--- NOTE | 2024-03-24 00:54 | NUR ---
PT ASSESSMENT COMPLETE. PT LAYING AWAKE IN BED. PT STATES SHE IS HAVING NO PAIN. PT STATES SHE FEELS HOT, TEMP TAKEN; 98.8. PT REMAINS ON ROOM AIR. VITAL SIGNS STABLE. PT REMINDED TO CALL FOR ASSISTANCE, CALL LIGHT WITHIN REACH. BED IN LOW AND LOCKED POSITION.
--- NOTE | 2024-03-24 02:39 | NUR ---
PT USED CALL LIGHT. PT IS MILDLY CONFUSED, EASILY REORIENTATED. PT ANSWERS ORIENTATION QUESTIONS APPROPRIATLY. VITAL SIGNS REMAIN STABLE. SAFETY CHECKY COMPLETE, BED IN LOW AND LOCKED POSITON WITH BED ALARM ON. CALL LIGHT IN HAND.
--- NOTE | 2024-03-24 04:29 | NUR ---
PT ASSESSMENT COMPLETE. PT REMAINS ON ROOM AIR, VITAL SIGNS STABLE. PT DENIES HAVING ANY PAIN. PT IS AWAKE AND ALERT, SITTING IN BED. PT HAS NO NEEDS AT THIS TIME. CALL LIGHT WITHIN REACH. BED IN LOW AND LOCKED POSITION.
--- NOTE | 2024-03-24 05:36 | NUR ---
NEW PERIPHERAL 20 GAUGE IV STARTED. PT TOLERATED WELL. LABS DRAWN VIA PERIPHERAL IV AND SENT TO LAB.
[2024-03-24 05:42] LABS: HEMATOCRIT 38.4 % (35.0-50.0)
--- NOTE | 2024-03-24 05:45 | NUR ---
DR UPDATED ON PT MENTAL STATUS THROUGOUT NIGHT AND RED STOOL. NO NEW ORDERS AT THIS TIME.
[2024-03-24 05:47] LABS: HEMOGLOBIN 12.8 g/dL (12.0-18.0); MCH 27.6 (27-36); MCHC 33.4 g/dl (30-36); MCV 82.8 fl (81-99); PLATELET COUNT 694 K/uL (140-440); RBC 4.63 M/ul (4.3-5.7); RDW 15.7 (10.5-15.0)
[2024-03-24 05:58] LABS: ALBUMIN 1.9 g/dL (3.4-5.0); ALBUMIN/GLOBULIN RATIO 0.5 (1.1-2.4); ANION GAP 11.3 (7-21); BILIRUBIN, TOTAL 0.3 ng/dL (0.2-1.0); BUN/CREATININE RATIO 12.67 (6.0-28.6); CALCIUM 8.2 mg/dL (8.5-10.1); CREATININE, SERUM 0.71 mg/dL (0.55-1.02); MAGNESIUM 1.7 mg/dL (1.8-2.4); POTASSIUM 3.3 mmol/L (3.5-5.1); PROTEIN, TOTAL 5.7 g/dL (6.4-8.2)
[2024-03-24 06:11] LABS: BANDS, MANUAL DIFF 7; EOSINOPHILS, MANUAL DIFF 3; LYMPHOCYTES, MANUAL DIFF 12; MONOCYTES, MANUAL DIFF 11; NEUTROPHILS, MANUAL DIFF 67
[2024-03-24] MEDS ORDERED: POTASSIUM CHLORIDE 40 MEQ,LIDOCAINE HCL 1% 40 MG in DEXTROSE 5% 250 ML IV ONE (07:00)
[2024-03-24] MEDS ORDERED: MAGNESIUM SULFATE 2 GM/50 ML BAG IV ONE (07:00)
--- NOTE | 2024-03-24 07:47 | NUR ---
REPORT RECEIVED FROM ZOYA KEVIN. IN TO CHECK ON PT, PT IS RESTING WITH EYES CLOSED, RESP EVEN AND UNLABORED, HR 80'S SINUS RHYTHM. BED ALARM IS ON.
--- NOTE | 2024-03-24 07:56 | NUR ---
IN TO DO ASSESSMENT AND HANG MAGNESIUM. PT AWAKENS EASILY, DENIES NEEDS, DOES NOT WANT TO EAT AT THIS TIME, BACK TO SLEEP. BED ALARM ON.
--- NOTE | 2024-03-24 08:23 | NUR ---
MD IN TO ROUND ON PT
--- NOTE | 2024-03-24 09:52 | NUR ---
IN TO DO ASSESSMENT, PT HAS EATEN A SMALL AMOUNT OF BREAKFAST, STATES SHE CONT TO FEEL A LITTLE BETTER EVERY DAY, DENIES NAUSEA AT THIS TIME AND REPORTS A SMALL AMOUNT OF PAIN IN LOWER ABDOMEN BUT IS OVERALL COMFORTABLE. MOM IN ROOM SITTING WITH PT, ASSISTED TO REPOSITION, NO FURTHER NEEDS, BED ALARM ON AND CALL LIGHT IN REACH.
--- NOTE | 2024-03-24 12:00 | NUR ---
PT RELUCTANTLY GOT UP TO WORK WITH PT. SHE GOT HERSELF TO SIT UP AT THE BEDSIDE, STOOD UP AND SAT IN CHAIR WHILE BED WAS MADE AND THEN WENT BACK TO BED. DID NOT WANT TO EAT LUNCH AT THIS TIME. BED ALARM ON, MOM IN ROOM.
--- NOTE | 2024-03-24 13:42 | NUR ---
PT CALLED AND REPORTED THAT SHE THOUGHT SHE HAD ANOTHER ACCIDENT. IN ROOM WITH ODALYS KEVIN TO HELP CLEAN PT UP. CLEAN BRIEF IN PLACE, PT RESPONDING TO CUES AND DIRECTIONS APPROPRIATELY AT THIS TIME. PT REQUESTED TO CALL HER MOM. ASSISTED PT WITH DIALING THE NUMBER ONTO IN-ROOM PHONE. CALL LIGHT WITHIN REACH, PT DENIES ANY FURTHER NEEDS AT THIS TIME.
--- NOTE | 2024-03-24 14:30 | NUR ---
PT RESTING IN BED, EYES CLOSED, RESP EVEN AND UNLABORED. MOM AT BEDSIDE.
--- NOTE | 2024-03-24 16:36 | NUR ---
IN TO DO ASSESSMENT, PT AWAKE IN BED, WATCHING TV, DENIES NEEDS AT THIS TIME. SEEMS MORE INTERACTIVE THIS AFTERNOON, CONT TO SAY SHE IS FEELING BETTER.
--- NOTE | 2024-03-24 17:17 | NUR ---
DINNER BROUGHT IN TO PT, SHE STATES SHE DOES NOT WANT TO EAT NOW, WILL TRY SOME PUDDING A LITTLE LATER. C/O BACK PAIN, OXYCODONE GIVEN PER EMAR.
--- NOTE | 2024-03-24 18:00 | NUR ---
IN TO CHECK ON PT, STATES PAIN IS IMPROVED, SHE IS SMILING AND INTERACTING WITH MOM. SHE REPORTS INC OF SOME STOOL BUT WANTS TO WAIT A WHILE SHE FEELS SHE HAS MORE STOOL COMING.
--- NOTE | 2024-03-24 18:59 | NUR ---
IN TO CHANGE PT, ATTENDS CHANGED, MEDIUM AMOUNT OF RED LIQUID STOOL IN BRIEF. PT REPOISITIONED UP IN BED, CALL LIGHT IN REACH. BED ALARM ON.
--- NOTE | 2024-03-24 19:48 | NUR ---
SBAR REPORT RECEIVED FROM HERBERTH JAIMES. PATIENT DEMETRIO IS NOTED TO BE IN BED RESTING AND WATCHING TELEVISION. SAFETY CHECK OF ROOM PERFORMED. PLAN OF CARE AND H&P REVIEWED. VSS WDL PER MONITOR.
--- NOTE | 2024-03-24 20:23 | NUR ---
DEMETRIO CALLED AND REPORTED BACK PAIN 04/09. PRN ACETAMINOPHEN PO GIVEN, REPOSITION, AND HEAT PACK PROVIDED. WILL REASSESS AT APPROPRIATE TIME
--- NOTE | 2024-03-24 21:05 | NUR ---
pt AND BELONGINGS MOVED FROM CCU ROOM #129 TO MS ROOM #109 AT THIS TIME WITH HELP FROM [facility]PER[facility]. PRIMARY RN TROY IN CCU OBTAINING pt REPORT. BED IN LOW POSITION AND BED ALARM ON FOR SAFETY, CALL LIGHT IN REACH.
--- NOTE | 2024-03-24 21:15 | NUR ---
REPORT RECEIVED FROM CCU RN. PT LYING IN BED A&O X 2. REPORTS ABD CRAMPING. WARM COMPRESS TO AREA. PT ALSO REPORTS BEING INCONTINENT OF BM. PT REFUSING TO LET STAFF ASSIST WITH JOJO CARE AT THIS TIME. VS OBTAINED. ASSESSMENT COMPLETE. NO FURTHER NEEDS AT THIS TIME. BED ALARM FOR SAFETY. CALL LIGHT IN REACH.
[2024-03-24] MEDS ORDERED: OXYCODONE HCL 5 MG TAB PO PRN (22:00)
[2024-03-24] MEDS ORDERED: DICYCLOMINE HCL 10 MG CAP PO PRN (22:00)
--- NOTE | 2024-03-24 22:02 | NUR ---
PT REPORTS INCREASED ABD PAIN/CRAMPING. NO PRN'S AVAILABLE. NOTIFIED. NEW ORDERS RECEIVED.
--- NOTE | 2024-03-24 22:16 | NUR ---
pt REPORTED 8/10 ABD PAIN-CRAMP LIKE PAIN. pt MEDICATED WITH 20MG PO BENTYL PER REQUEST OF PRIMARY RN TROY. BED ALARM ON AND CALL LIGHT IN REACH.
--- NOTE | 2024-03-24 22:29 | NUR ---
CALL LIGHT ANSWERED, pt ASSISTED WITH TV GUIDE AND TV NOW ON TRUE CRIME SHOW PER pt REQUEST. pt STATES, "IT'S JUST SO LONELY DOWN HERE". pt REASSURED NURSING STAFF IS CLOSE BY AND ROUNDS ON pt EVERY HOUR TO ENSURE NEEDS ARE MET, NO FURTHER NEEDS OR CONCERNS VERBALIZED. CALL LIGHT IN REACH AND BED ALARM ON FOR SAFETY.
--- NOTE | 2024-03-24 22:45 | NUR ---
PT AGREEABLE AT THIS TIME TO LET STAFF ASSIST WITH CHANGING ATTENDS. STAFF OFFERED TO PAUL PT TO BSC OR BR. PT REFUSED. STATES "I CAN'T GET UP." PT INCONTINENT OF URINE AND LARGE AMOUNT RED COLORED LIQUID BM. STOOL COLOR LOOKS SIMILAR TO THAT OF RED COLORED ENSURE/JELLO. NO FOUL ODOR NOTED. PT ABLE TO ASSIST WITH TURNING IN BED AND BOOSTING SELF. PT DENIES FURTHER NEEDS. CALL LIGHT IN REACH. BED ALARM FOR SAFETY.
[2024-03-25] VITALS (7 sets, daily range): BP systolic 145–153; BP diastolic 71–83
--- NOTE | 2024-03-25 00:44 | NUR ---
BED ALARM SOUNDING. SBA TO BR TO VOID AND PASS SMALL AMOUNT OF RED BM. STAFF ASSIST WITH JOJO CARE. CLEAN ATTENDS PROVIDED. GAIT STEADY. BACK TO BED, AMANDA WELL. NO FURTHER NEEDS. BED ALARM FOR SAFETY.
--- NOTE | 2024-03-25 01:50 | NUR ---
PT LYING ON RIGHT SIDE RESTING WITH EYES CLOSED. RESPIRATIONS EVEN. TELE #[address] SR. HR 70'S. BED ALARM IN PLACE. CALL LIGHT IN REACH.
--- NOTE | 2024-03-25 02:39 | NUR ---
BED ALARM SOUNDING. PT UP TO BR WITH SBA TO VOID AND PASS SMALL AMOUNT RED STOOL. PT INCONTINENT OF RED LIQUID STOOL WELL. STAFF ASSIST WITH JOJO CARE. NEW ATTENDS IN PLACE. BACK TO BED. PT REPORTS 8/10 LOW BACK AND ABD "CRAMPING" PAIN. PRN FOR PAIN ADMIN PER EMAR. VS OBTAINED. WARM BLANKET PROVIDED. NO FURTHER NEEDS.
--- NOTE | 2024-03-25 04:10 | NUR ---
BED ALARMING. PATIENT GOT UP TO USE THE TOILET. PATIENT'S PULL UP WITH BLOOD AND PLACED NEW ONE. PATIENT WASHED HER HANDS. PATIENT IS BACK IN BED. NO OTHER NEEDS AT THIS TIME. BED ALARM ON FOR SAFETY.
[2024-03-25 05:35] LABS: HEMOGLOBIN 11.6 g/dL (12.0-18.0); MCH 27.4 (27-36); MCHC 33.1 g/dl (30-36); MCV 82.7 fl (81-99); PLATELET COUNT 601 K/uL (140-440); RBC 4.23 M/ul (4.3-5.7); RDW 15.7 (10.5-15.0)
--- NOTE | 2024-03-25 05:44 | NUR ---
PT HEARD TALKING FROM THE DOOR, STATES "I DON'T FEEL GOOD." PT REPORTS 02/06 ABD "CRAMPING" PAIN. DENIES NAUSEA. PRN FOR PAIN ADMIN PER EMAR. SCHEDULED MEDS ADMIN. WARM COMPRESS PROVIDED TO ABD. VS AND I&O OBTAINED. NO FURTHER NEEDS. BED ALARM FOR SAFETY. CALL LIGHT IN REACH.
[2024-03-25 05:48] LABS: ALBUMIN 1.8 g/dL (3.4-5.0); ALBUMIN/GLOBULIN RATIO 0.51 (1.1-2.4); BILIRUBIN, TOTAL 0.3 ng/dL (0.2-1.0); BUN/CREATININE RATIO 15.78 (6.0-28.6); CALCIUM 7.9 mg/dL (8.5-10.1); CREATININE, SERUM 0.57 mg/dL (0.55-1.02); MAGNESIUM 1.8 mg/dL (1.8-2.4); PROTEIN, TOTAL 5.3 g/dL (6.4-8.2)
[2024-03-25 05:52] LABS: BANDS, MANUAL DIFF 8; LYMPHOCYTES, MANUAL DIFF 14; MONOCYTES, MANUAL DIFF 13; NEUTROPHILS, MANUAL DIFF 65
--- NOTE | 2024-03-25 06:21 | EKG ---
[facility] [address] [place], [place] [address] Signed EKG completed, results pending confirmation PATIENT NAME: DEMETRIO GILBERT Electrocardiogram DATE OF : 48 PHYSICIAN: PRELIMINARY REPORT #: [id number] REPORT IS CONFIDENTIAL AND NOT TO BE RELEASED WITHOUT AUTHORIZATION
--- NOTE | 2024-03-25 07:16 | NUR ---
Board has been updated and call light has been placed within reach. No request from patient at this time
--- NOTE | 2024-03-25 07:30 | NUR ---
PT AWAKE WATCHING TV AT TIME OF SHIFT REPORT, FRESH H20 AT BEDSIDE ALONG WITH CALL LIGHT. PT AGREES SHE IS COMFORTABLE AT THIS TIME DENIES NEEDS.
[2024-03-25] MEDS ORDERED: POTASSIUM CHLORIDE 40 MEQ,LIDOCAINE HCL 1% 40 MG in DEXTROSE 5% 250 ML IV ONE (08:00)
--- NOTE | 2024-03-25 08:15 | NUR ---
PT ENCOURAGED TO EAT MORNING MEAL SHE SAYS SHE MIGHT A LITTLE LATER BUT WANTS TO REST NOW. DENIES NEED OF ANYTHING
--- NOTE | 2024-03-25 09:30 | NUR ---
PT RESTING EYES CLOSED HAS NOT EATEN MORNING MEAL. CALL LIGHT AND NEEDED ITEMS IN REACH
--- NOTE | 2024-03-25 09:34 | NUR ---
PATIENT ALERT AND ORIENTED, SITTING UP IN BED. DEMOGRAPHICS VERIFIED WITH PATIENT. STATES SHE LIVES IN HOUSE, HAS STAIRS BUT SHE HAS NO ISSUES WITH THE STAIRS. STATES SHE HAS NO DME, BUT DOES USE A "WALKING STICK" WHEN SHE AMBULATES. STATES SHE REMAINS ABLE TO DRIVE AT THIS TIME. SHE ALSO DENIES DIFFICULTY PAYING FOR UTILITIES, OBTAINING FOOD OR MEDICATIONS. STATES SHE HAS NO NEEDS AT HOME AT THIS TIME, INFORMED TO NOTIFY STAFF IF SHE THINKS OF NEEDS. VERBALIZES UNDERSTANDING.
--- NOTE | 2024-03-25 10:47 | NUR ---
PT AWAKE NOW STILL REFUSES ANY FOOD ITEMS. ENSURE OFFERED WELL. FRESH ICE WATER TO BED SIDE PT ENCOURAGED TO MAKE NEEDS KNOWN. AGREES SHE IS WARM ENOUGH. NO BOWEL MOVEMENTS SO FAR THIS SHIFT NO C.O DISCOMFORTS.
[2024-03-25] MEDS ORDERED: DICYCLOMINE HCL10 MG PO (11:17)
[2024-03-25] MEDS ORDERED: PREDNISONE20 MG PO (11:22)
[2024-03-25] MEDS ORDERED: POTASSIUM CHLO20 ME1 PO (11:26)
--- NOTE | 2024-03-25 12:10 | NUR ---
DR VERMA HAS BEEN IN TO SEE THIS PT AND SHE AGREES HE ANSWERED ALL OF HER QUESTIONS. DC ORDERS WRITTEN. POTASSIUM INFUSING PT ENCOURAGED TO HAVE LUNCH WHILE INFUSION FINISHES AND THEN WILL DC THIS AFTERNOON
--- NOTE | 2024-03-25 13:30 | NUR ---
PT SITTING UP IN BED VISITING WITH HER MOTHER. PLANS TO DC AROUND 1500
--- NOTE | 2024-03-25 14:30 | NUR ---
PT RESTING IN BED WATCHING TV DENIES NEED OR DISCOMFORTS
--- NOTE | 2024-03-25 15:07 | NUR ---
PATIENT ASSISTED IN GETTING DRESSED. GIVEN DOSE OF BENTYL FOR STOMACH CRAMPING, AND WHEELCHAIR RIDE TO FRONT DOOR.
== END 2024-03-25 15:10 | disposition home or self-care (01) | DRG 641 ==
LOC: ED 12:01 → CCU 15:08 → MS 15:08
PROVIDERS: Emergency Medicine; ADMIT Student in an Organized Health Care Education/Training Program; ATTEND Student in an Organized Health Care Education/Training Program
DX: E87.6 Hypokalemia (principal); K50.90 Crohn's disease, unspecified, without complications; F31.9 Bipolar disorder, unspecified; I10 Essential (primary) hypertension; N32.81 Overactive bladder; G25.81 Restless legs syndrome; Z66 Do not resuscitate; K21.9 Gastro-esophageal reflux disease without esophagitis; E78.00 Pure hypercholesterolemia, unspecified; J45.909 Unspecified asthma, uncomplicated; Z87.891 Personal history of nicotine dependence; E89.0 Postprocedural hypothyroidism; Z96.641 Presence of right artificial hip joint; Z98.890 Other specified postprocedural states; Z88.8 Allergy status to other drugs, medicaments and biological substances; Z79.899 Other long term (current) drug therapy; Z79.890 Hormone replacement therapy
CPT/HCPCS: 36415; 36592; 74176; 80048; 80053; 83690; 83735; 84132; 85025; 85651; 86140; 93005; 93010; 96361; 96365; 96366; 96375; 97162; 97166; 97530; 99285-25; A9270; J1170; J2405; J2919; J3475; J3480; J3490; J7030; J7060

== ENCOUNTER 2024-04-02 11:00 | Inpatient (IN) | payer MEDICARE, OTHER ==
[~2024-04-02] VITALS: Ht 165.1 cm; Wt 50.7 kg
[~2024-04-02 11:00] MED LIST changes: +ARIPIPRAZOLE2 MG PO; +BUDESONIDE ER9 MG PO; +BUSPIRONE HCL5 MG PO; +DICYCLOMINE HCL10 MG PO; +DIVALPROEX SOD500 MG PO; +GABAPENTIN300 MG PO; +LAMOTRIGINE100 MG PO; +POTASSIUM CHLO20 ME1 PO; +PREDNISONE20 MG PO; +QUETIAPINE FUM200 M1 PO; +ROPINIROLE HCL1 MG PO; +SULFASALAZINE500 MG PO
[2024-04-02] MEDS ORDERED: SODIUM CHLORIDE 0.9% 1,000 ML IV ONE (11:45)
[2024-04-02 11:52] LABS: HEMATOCRIT 35.3 % (35.0-50.0); HEMOGLOBIN 11.8 g/dL (12.0-18.0); MCHC 33.4 g/dl (30-36); MCV 83.9 fl (81-99); PLATELET COUNT 833 K/uL (140-440); RBC 4.21 M/ul (4.3-5.7); RDW 15.9 (10.5-15.0)
[2024-04-02 12:01] LABS: ALBUMIN/GLOBULIN RATIO 0.53 (1.1-2.4); ANION GAP 9.2 (7-21); BILIRUBIN, TOTAL 0.3 ng/dL (0.2-1.0); BUN/CREATININE RATIO 10.14 (6.0-28.6); CALCIUM 8.2 mg/dL (8.5-10.1); CREATININE, SERUM 0.69 mg/dL (0.55-1.02); POTASSIUM 4.2 mmol/L (3.5-5.1); PROTEIN, TOTAL 5.8 g/dL (6.4-8.2)
[2024-04-02 12:09] LABS: BANDS, MANUAL DIFF 11; EOSINOPHILS, MANUAL DIFF 4; LYMPHOCYTES, MANUAL DIFF 24; MONOCYTES, MANUAL DIFF 15; NEUTROPHILS, MANUAL DIFF 46
[2024-04-02] MEDS ORDERED: methylPREDNISolone SOD SUCC 125 MG/2 ML VIAL IV ONE (14:30)
[2024-04-02 17:28] LABS: BILIRUBIN, URINE NEGATIVE (negative); BLOOD/HGB, URINE LARGE (Negative); KETONE, URINE TRACE (Negative); LEUK ESTERASE, URINE TRACE (negative); NITRITE, URINE NEGATIVE (negative); PH, URINE 5.5 (5-7)
[2024-04-02] MEDS ORDERED: LACTATED RINGER'S 1,000 ML IV SCH (17:30)
[2024-04-02 17:34] LABS: BACTERIA, URINE NONE SEEN /hpf (negative); CASTS, URINE NONE SEEN \\lpf; COLLECTION TYPE, URINE CLEAN CATCH; CRYSTALS, URINE NONE SEEN (0-1+); EPITHELIAL CELLS, URINE NONE SEEN /lpf (0-1+); RED BLOOD CELLS, URINE 0-1 /hpf (0-5); REFLEX CULTURE, URINE No (No)
[2024-04-02] MEDS ORDERED: CIPROFLOXACIN/D5W 400 MG IV SCH (17:45)
[2024-04-02 17:48] VITALS: BP 129/76
[2024-04-02] MEDS ORDERED: CIPROFLOXACIN/D5W 400 MG IV ONE (18:00)
[2024-04-02 21:26] VITALS: BP 139/78
[2024-04-02] MEDS ORDERED: methylPREDNISolone SOD SUCC 40 MG/ML VIAL IV SCH (22:00)
[2024-04-02 23:53] VITALS: BP 139/78
[2024-04-03] VITALS (10 sets, daily range): BP systolic 120–147; BP diastolic 69–86
[2024-04-03 05:29] LABS: HEMATOCRIT 31.5 % (35.0-50.0); HEMOGLOBIN 10.4 g/dL (12.0-18.0); MCH 27.8 (27-36); MCHC 33.1 g/dl (30-36); MCV 84.1 fl (81-99); PLATELET COUNT 717 K/uL (140-440); RBC 3.74 M/ul (4.3-5.7)
[2024-04-03 05:43] LABS: ANION GAP 6.8 (7-21); BUN/CREATININE RATIO 8.33 (6.0-28.6); CALCIUM 8.4 mg/dL (8.5-10.1); CREATININE, SERUM 0.6 mg/dL (0.55-1.02); POTASSIUM 5.8 mmol/L (3.5-5.1)
[2024-04-03 05:47] LABS: BANDS, MANUAL DIFF 7; LYMPHOCYTES, MANUAL DIFF 20; MONOCYTES, MANUAL DIFF 14; NEUTROPHILS, MANUAL DIFF 59
[2024-04-03] MEDS ORDERED: FUROSEMIDE 40 MG/4 ML VIAL IV ONE (07:00)
[2024-04-03] MEDS ORDERED: SODIUM CHLORIDE 0.9% 1,000 ML IV ONE (07:00)
[2024-04-03] MEDS ORDERED: DICYCLOMINE HCL 10 MG CAP PO PRN (07:00)
[2024-04-03] MEDS ORDERED: OXYCODONE HCL 5 MG TAB PO PRN (07:00)
[2024-04-03] MEDS ORDERED: PHARMACY RENAL DOSE ADJUSTMENT 1 DOSE MISC PO SCH (12:00)
[2024-04-03] MEDS ORDERED: sulfaSALAzine 500 MG TAB PO SCH (21:00)
[2024-04-04] VITALS (8 sets, daily range): BP systolic 127–141; BP diastolic 61–78
[2024-04-04 07:11] LABS: ANION GAP 7.4 (7-21); BUN/CREATININE RATIO 8.33 (6.0-28.6); CREATININE, SERUM 0.6 mg/dL (0.55-1.02); POTASSIUM 4.4 mmol/L (3.5-5.1)
[2024-04-04] MEDS ORDERED: ARIPiprazole 5 MG TAB PO SCH (09:00)
[2024-04-04] MEDS ORDERED: ROPINIROLE HCL 1 MG TAB PO SCH (09:00)
[2024-04-04] MEDS ORDERED: methylPREDNISolone SOD SUCC 40 MG/ML VIAL IV SCH (21:00)
[2024-04-04 21:44] LABS: C. DIFF TOXIN B GENE TCDB,PCR Not Detected (())
[2024-04-05 04:27] VITALS: BP 152/80
[2024-04-05 04:28] VITALS: BP 152/80
[2024-04-05 05:46] LABS: ANION GAP 8.2 (7-21); BUN/CREATININE RATIO 9.67 (6.0-28.6); CALCIUM 8.1 mg/dL (8.5-10.1); CREATININE, SERUM 0.62 mg/dL (0.55-1.02); MAGNESIUM 1.5 mg/dL (1.8-2.4); POTASSIUM 4.2 mmol/L (3.5-5.1)
[2024-04-05] MEDS ORDERED: MAGNESIUM SULFATE 2 GM/50 ML BAG IV SCH (09:00)
[2024-04-05] MEDS ORDERED: methylPREDNISolone SOD SUCC 40 MG/ML VIAL IV SCH (09:00)
[2024-04-05 10:43] VITALS: BP 130/77
[2024-04-05] MEDS ORDERED: SULFASALAZINE500 MG PO (13:42)
[2024-04-05] MEDS ORDERED: DICYCLOMINE HCL10 MG PO (13:42)
[2024-04-05 13:43] VITALS: BP 127/59
[2024-04-05] MEDS ORDERED: PREDNISONE10 MG PO (13:51)
== END 2024-04-05 15:41 | disposition home or self-care (01) | DRG 387 ==
LOC: ED 11:00 → MS 11:02
PROVIDERS: Emergency Medicine; Student in an Organized Health Care Education/Training Program; ADMIT Internal Medicine; ATTEND Internal Medicine
DX: K50.90 Crohn's disease, unspecified, without complications (principal); K52.9 Noninfective gastroenteritis and colitis, unspecified; F31.9 Bipolar disorder, unspecified; I10 Essential (primary) hypertension; J45.909 Unspecified asthma, uncomplicated; E78.00 Pure hypercholesterolemia, unspecified; E89.0 Postprocedural hypothyroidism; B19.20 Unspecified viral hepatitis C without hepatic coma; Z96.641 Presence of right artificial hip joint; G25.81 Restless legs syndrome; N32.81 Overactive bladder; K21.9 Gastro-esophageal reflux disease without esophagitis; Z96.611 Presence of right artificial shoulder joint; Z79.52 Long term (current) use of systemic steroids; Z87.891 Personal history of nicotine dependence; Z98.890 Other specified postprocedural states; Z88.8 Allergy status to other drugs, medicaments and biological substances; Z79.899 Other long term (current) drug therapy; Z79.890 Hormone replacement therapy
CPT/HCPCS: 36415; 51798; 74177; 80048; 80053; 81001; 83690; 83735; 85025; 87045; 87046; 87493; 96365; 96366; 96368; 96375; 96376; 97161; 97162; 97166; 97530; 99285-25; A9270; G0378; J0744; J1940; J2919; J3475; J7030; J7121; Q9967

== ENCOUNTER 2024-08-11 17:02 | Emergency (ER) | payer MEDICARE, OTHER ==
[~2024-08-11] VITALS: Ht 165.1 cm; Wt 64.4 kg
[~2024-08-11 17:02] MED LIST changes: +PREDNISONE10 MG PO
[2024-08-11] MEDS ORDERED: LAMOTRIGINE100 MG PO (17:14)
[2024-08-11] MEDS ORDERED: HYDROXYZINE HCL50 MG PO (17:15)
[2024-08-11] MEDS ORDERED: DIVALPROEX SOD500 MG PO (17:15)
[2024-08-11] MEDS ORDERED: BUDESONIDE ER9 MG PO (17:16)
[2024-08-11] MEDS ORDERED: BUSPIRONE HCL5 MG PO (17:16)
[2024-08-11] MEDS ORDERED: AMLODIPINE BESY10 MG PO (17:16)
[2024-08-11 17:40] LABS: EOSINOPHILS 0.7 % (0-6); HEMATOCRIT 31.1 % (35.0-50.0); HEMOGLOBIN 10.5 g/dL (12.0-18.0); LYMPHOCYTES 36.1 % (24-44); MCH 25.5 (27-36); MCHC 33.7 g/dl (30-36); MCV 75.6 fl (81-99); MONOCYTES 12.5 % (0-12); NEUTROPHILS 49.7 % (39-80); PLATELET COUNT 440 K/uL (140-440); RBC 4.11 M/ul (4.3-5.7); RDW 23.2 (10.5-15.0)
[2024-08-11 17:57] LABS: ALBUMIN 3.9 g/dL (3.4-5.0); ALBUMIN/GLOBULIN RATIO 0.98 (1.1-2.4); ALCOHOL, MEDICAL <3 ng/dL (<3); ALKALINE PHOSPHATASE 84 U/L (46-116); ALT (SGPT) 22 U/L (14-59); ANION GAP 12.3 (7-21); AST (SGOT) 26 U/L (15-37); BILIRUBIN, TOTAL 0.4 ng/dL (0.2-1.0); BUN/CREATININE RATIO 19.04 (6.0-28.6); CALCIUM 8.9 mg/dL (8.5-10.1); CARBON DIOXIDE 28 mmol/L (21-32); CHLORIDE 104 mmol/L (98-107); CREATININE, SERUM 0.84 mg/dL (0.55-1.02); GLOMERULAR FILTRATION RATE,EST 72 mL/min (>60); POTASSIUM 3.3 mmol/L (3.5-5.1); PROTEIN, TOTAL 7.9 g/dL (6.4-8.2); UREA NITROGEN 16 mg/dL (7-18)
[2024-08-11] MEDS ORDERED: LACTATED RINGER'S 1,000 ML IV ONE (19:15)
[2024-08-11 19:32] LABS: ALCOHOL, MEDICAL <3 ng/dL (<3); TSH, 3RD GENERATION 0.633 uIU/mL (0.358-3.740)
[2024-08-11 20:04] LABS: BILIRUBIN, URINE NEGATIVE (negative); BLOOD/HGB, URINE SMALL (Negative); KETONE, URINE SMALL (Negative); LEUK ESTERASE, URINE NEGATIVE (negative); NITRITE, URINE NEGATIVE (negative); PH, URINE 6.5 (5-7)
[2024-08-11 20:13] LABS: BACTERIA, URINE RARE /hpf (negative); CASTS, URINE NONE SEEN \\lpf; COLLECTION TYPE, URINE CLEAN CATCH; CRYSTALS, URINE NONE SEEN (0-1+); EPITHELIAL CELLS, URINE SQUAMOUS 1+ /lpf (0-1+); REFLEX CULTURE, URINE No (No)
[2024-08-11 20:18] LABS: AMPHETAMINES, URINE NEGATIVE (NEGATIVE); BARBITURATES, URINE NEGATIVE (NEGATIVE); BENZODIAZEPINE, URINE NEGATIVE (NEGATIVE); BUPRENORPHINE, URINE NEGATIVE (NEGATIVE); CANNABINOID, URINE NEGATIVE (NEGATIVE); COCAINE, URINE NEGATIVE (NEGATIVE); ECSTASY, URINE NEGATIVE (NEGATIVE); FENTANYL, URINE NEGATIVE (NEGATIVE); METHADONE, URINE NEGATIVE (NEGATIVE); OPIATES, URINE NEGATIVE (NEGATIVE); OXYCODONE, URINE NEGATIVE (NEGATIVE); PHENCYCLIDINE, URINE NEGATIVE (NEGATIVE)
[2024-08-12 11:22] VITALS: BP 159/75
[2024-08-13] MEDS ORDERED: GABAPENTIN300 MG PO (19:02)
--- NOTE | 2024-08-16 10:05 | EKG ---
[facility] [address] [place] [address] Signed Normal sinus rhythm Normal ECG When compared with ECG of 22-MAR-2024 14:00, T wave inversion no longer evident in Inferior leads Nonspecific T wave abnormality no longer evident in Anterolateral leads Confirmed by Kris Montemayor DO ([id number]) on 08/16/2024 10:05:05 AM Electronically Signed By: KRIS MONTEMAYOR DO 08/16/24 1005 PATIENT NAME: DEMETRIO GILBERT Electrocardiogram DATE OF : 48 PHYSICIAN: KRIS MONTEMAYOR DO REPORT #: [id number] REPORT IS CONFIDENTIAL AND NOT TO BE RELEASED WITHOUT AUTHORIZATION
== END 2024-08-12 11:23 | disposition home or self-care (01) ==
LOC: ED 17:02
PROVIDERS: Emergency Medicine; Internal Medicine
DX: F32.A Depression, unspecified (principal); R41.3 Other amnesia; I10 Essential (primary) hypertension; J45.909 Unspecified asthma, uncomplicated; E78.00 Pure hypercholesterolemia, unspecified; K50.90 Crohn's disease, unspecified, without complications; Z87.891 Personal history of nicotine dependence; Z88.8 Allergy status to other drugs, medicaments and biological substances; Z79.890 Hormone replacement therapy; Z79.899 Other long term (current) drug therapy
CPT/HCPCS: 36415; 70450; 71045; 80053; 80307; 81001; 84443; 84484; 85025; 85060; 93005; 93010; 99285-25; G0480; J7121

== ENCOUNTER 2024-08-13 18:36 | Emergency (ER) | payer MEDICARE, OTHER ==
[~2024-08-13] VITALS: Ht 165.1 cm; Wt 62.6 kg
[~2024-08-13 18:36] MED LIST changes: +AMLODIPINE BESY10 MG PO; +HYDROXYZINE HCL50 MG PO
[2024-08-13] MEDS ORDERED: GABAPENTIN300 MG PO (19:02)
[2024-08-13 19:16] LABS: BILIRUBIN, URINE NEGATIVE (negative); BLOOD/HGB, URINE SMALL (Negative); KETONE, URINE NEGATIVE (Negative); LEUK ESTERASE, URINE MODERATE (negative); NITRITE, URINE NEGATIVE (negative)
[2024-08-13 19:26] LABS: EOSINOPHILS 1.8 % (0-6); HEMATOCRIT 31.5 % (35.0-50.0); HEMOGLOBIN 10.3 g/dL (12.0-18.0); LYMPHOCYTES 34.6 % (24-44); MCH 25.3 (27-36); MCHC 32.7 g/dl (30-36); MCV 77.1 fl (81-99); MONOCYTES 11.8 % (0-12); NEUTROPHILS 50.8 % (39-80); PLATELET COUNT 431 K/uL (140-440); RBC 4.09 M/ul (4.3-5.7); RDW 23.2 (10.5-15.0)
[2024-08-13 19:30] LABS: AMPHETAMINES, URINE NEGATIVE (NEGATIVE); BARBITURATES, URINE NEGATIVE (NEGATIVE); BENZODIAZEPINE, URINE NEGATIVE (NEGATIVE); BUPRENORPHINE, URINE NEGATIVE (NEGATIVE); CANNABINOID, URINE NEGATIVE (NEGATIVE); COCAINE, URINE NEGATIVE (NEGATIVE); ECSTASY, URINE NEGATIVE (NEGATIVE); FENTANYL, URINE NEGATIVE (NEGATIVE); METHADONE, URINE NEGATIVE (NEGATIVE); OPIATES, URINE NEGATIVE (NEGATIVE); OXYCODONE, URINE NEGATIVE (NEGATIVE); PHENCYCLIDINE, URINE NEGATIVE (NEGATIVE)
[2024-08-13 19:32] LABS: WHITE BLOOD CELLS, URINE 21-40 /HPF (0-5)
[2024-08-13 19:33] LABS: BACTERIA, URINE 1+ /hpf (negative); CRYSTALS, URINE NONE SEEN (0-1+)
[2024-08-13 19:34] LABS: CASTS, URINE HYALINE 1+ \\lpf; COLLECTION TYPE, URINE CLEAN CATCH; REFLEX CULTURE, URINE No (No)
[2024-08-13 19:54] LABS: ACETAMINOPHEN 0 ug/mL (10-30); ALBUMIN 3.9 g/dL (3.4-5.0); ALBUMIN/GLOBULIN RATIO 1.05 (1.1-2.4); ALCOHOL, MEDICAL <3 ng/dL (<3); ALKALINE PHOSPHATASE 74 U/L (46-116); ALT (SGPT) 17 U/L (14-59); AST (SGOT) 18 U/L (15-37); BILIRUBIN, TOTAL 0.3 ng/dL (0.2-1.0); BUN/CREATININE RATIO 11.11 (6.0-28.6); CALCIUM 9.1 mg/dL (8.5-10.1); CARBON DIOXIDE 29 mmol/L (21-32); CHLORIDE 102 mmol/L (98-107); CREATININE, SERUM 0.99 mg/dL (0.55-1.02); GLOMERULAR FILTRATION RATE,EST 59 mL/min (>60); PROTEIN, TOTAL 7.6 g/dL (6.4-8.2); SALICYLATE 3.6 mg/dL (2.8-20.0); TSH, 3RD GENERATION 1.363 uIU/mL (0.358-3.740); UREA NITROGEN 11 mg/dL (7-18)
[2024-08-13] MEDS ORDERED: POTASSIUM CHLORIDE 10 MEQ TABCR PO ONE (23:30)
[2024-08-14] MEDS ORDERED: AMLODIPINE BESYLATE 5 MG TAB PO SCH (10:23)
[2024-08-14] MEDS ORDERED: CITALOPRAM HYDROBROMIDE 20 MG TAB PO SCH (10:24)
[2024-08-14] MEDS ORDERED: LEVOTHYROXINE SODIUM 175 MCG TAB PO SCH (10:25)
[2024-08-14] MEDS ORDERED: lamoTRIgine 100 MG TAB PO SCH (10:25)
[2024-08-14] MEDS ORDERED: ARIPiprazole 5 MG TAB PO SCH (10:26)
[2024-08-14] MEDS ORDERED: sulfaSALAzine 500 MG TAB PO SCH (15:00)
[2024-08-14] MEDS ORDERED: QUETIAPINE FUMARATE 100 MG TAB PO SCH (21:00)
[2024-08-14] MEDS ORDERED: DIVALPROEX SODIUM 500 MG TABEC PO SCH (21:00)
[2024-08-15] MEDS ORDERED: QUETIAPINE FUMARATE 25 MG TAB PO SCH (09:00)
[2024-08-15] MEDS ORDERED: SEROQUEL XR200 MG PO (11:37)
[2024-08-15] MEDS ORDERED: DEPAKOTE ER500 MG PO (11:37)
[2024-08-15 11:48] VITALS: BP 154/67
== END 2024-08-15 11:49 | disposition home or self-care (01) ==
LOC: ED 18:36
PROVIDERS: Internal Medicine
DX: R45.851 Suicidal ideations (principal); E87.6 Hypokalemia; I10 Essential (primary) hypertension; J45.909 Unspecified asthma, uncomplicated; E78.00 Pure hypercholesterolemia, unspecified; K50.90 Crohn's disease, unspecified, without complications; Z87.891 Personal history of nicotine dependence; Z88.4 Allergy status to anesthetic agent; Z79.890 Hormone replacement therapy; Z79.899 Other long term (current) drug therapy
CPT/HCPCS: 36415; 80053; 80307; 81001; 84443; 85025; 85060; 99284; A9270; G0480; U0002